=== PATIENT | female | born 1955 | race Caucasian/White ===

== ENCOUNTER → 2018-05-25 11:45 | Outpatient (CLI) | payer MEDICARE, SELFPAY ==
[2018-05-25 12:06] LABS: Basophils % 0.7 % (0.1-2.0); Eosinophils # 0.2 K/mm3 (0.0-0.4); Eosinophils % 5.6 % (0.1-12.0); Hematocrit 37.4 % (37.0-47.0); Hemoglobin 12.1 g/dL (12.2-16.2); Lymphocytes # 1.6 K/mm3 (0.7-4.5); Lymphocytes % 41.7 K/mm3 (10-50); Mean Corpuscular HGB Conc 32.3 g/dL (31.8-35.4); Mean Corpuscular Volume 86.5 fl (81-99); Mean Platelet Volume 7.5 fl (7.4-10.4); Monocytes # 0.2 K/mm3 (0.1-1.0); Monocytes % 5.5 % (1.7-9.3); Neutrophils # 1.7 K/mm3 (1.8-7.8); Neutrophils % 46.5 % (37.0-80.0); Platelet Count 210 K/mm3 (142-424); Red Blood Count 4.32 M/mm3 (4.20-5.40); Red Cell Distribution Width 13.3 % (11.5-17.5); White Blood Count 3.7 K/mm3 (4.8-10.8)
[2018-05-25 13:00] LABS: Alanine Aminotransferase 29 U/L (12-78); Albumin Level 3.7 gm/dL (3.4-5.0); Alkaline Phosphatase 100 U/L (46-116); Aspartate Amino Transferase 16 U/L (15-37); Bilirubin,Direct 0.1 mg/dL (0.0-0.2); Bilirubin,Indirect 0.3 mg/dL (0.0-0.9); Bilirubin,Total 0.4 mg/dL (0.2-1.0); Chol/HDL Ratio 3.9 (1-3.5); Cholesterol 235 mg/dL (140-200); HDL Cholesterol 61 mg/dL (29-89); LDL Cholesterol 157 mg/dL (0-130); T4 (Thyroxine) 10.3 ug/dl (4.7-13.3); Thyroid Stimulating Hormone 6.37 uIU/ml (0.358-3.740); Total Protein,Serum 6.6 gm/dL (6.4-8.2); Triglycerides 87 mg/dL (30-200); VLDL Cholesterol 17 mg/dL (0-40)
[2018-05-27 11:26] LABS: Vitamin D 25 Hydroxy 32.3 ng/mL (30.0-100.0)
== END ==
PROVIDERS: PCP Family Medicine; Visit Provider Family Medicine
DX: E03.9 Hypothyroidism, unspecified (principal); R53.83 Other fatigue
CPT/HCPCS: 36415; 80061; 80076; 82652; 84436; 84443; 85025

== ENCOUNTER → 2018-06-30 13:41 | Outpatient (CLI) | payer MEDICARE, SELFPAY ==
[2018-06-30 16:07] LABS: Free T4 (Free Thyroxine) 1.26 ng/dl (0.76-1.46)
[2018-07-03 09:26] LABS: Triiodothyronine (T3) Free 2.7 pg/mL (2.0-4.4)
== END ==
PROVIDERS: Visit Provider Otolaryngology
DX: R49.0 Dysphonia (principal); E03.9 Hypothyroidism, unspecified
CPT/HCPCS: 36415; 84439; 84443; 84481

== ENCOUNTER → 2018-07-03 09:05 | Outpatient (CLI) | payer MEDICARE, SELFPAY ==
--- NOTE | 2018-07-03 09:08 | FL_ITS ---
EXAM: Barium swallow/esophagram. INDICATION: ITS.REASON: Hypothyroidism ORDERING PHYSICIAN: Rc Bennett MD PATIENT AGE: 62 years COMPARISON: None TECHNIQUE: In the upright position the patient was observed to swallow barium in both the AP and lateral view. The cervical esophagus was examined under fluoroscopy with images obtained. The patient was then placed prone in the right anterior oblique position and was observed to swallow barium with Valsalva technique . FLUOROSCOPY TIME: 45 seconds FINDINGS: There was no evidence of aspiration. There was normal peristalsis. No filling defects or mucosal abnormalities. No masses or strictures. The esophagus is midline. No hiatal hernia. Carotid artery calcifications are evident IMPRESSION: Negative barium swallow.
== END ==
PROVIDERS: PCP Family Medicine; Visit Provider Otolaryngology
DX: E03.9 Hypothyroidism, unspecified (principal); R49.0 Dysphonia
CPT/HCPCS: 74220

== ENCOUNTER → 2018-08-05 13:01 | Outpatient (CLI) | payer MEDICARE, SELFPAY ==
--- NOTE | 2018-08-05 13:11 | XR_ITS ---
XR DEXA axial skeleton HISTORY: ITS.REASON: POST MENOPAUSAL ORDERING PHYSICIAN: aHrley Maya MD PATIENT AGE: 62 years COMPARISON: None FINDINGS: The BMD measured at the left femoral neck is 0.889 g/cm squared with a T score of -1.1. This is considered Osteopenic according to the World Health Organization criteria. Fracture risk is Moderate. Treatment is advised. L1 L4 density has T score of 0.5. IMPRESSION: Osteopenia with moderate fracture risk. Recommend follow-up exam in 2020
== END ==
PROVIDERS: PCP Family Medicine; Visit Provider Family Medicine
DX: Z78.0 Asymptomatic menopausal state (principal)
CPT/HCPCS: 77080

== ENCOUNTER → 2019-03-09 12:16 | Outpatient (CLI) | payer MEDICARE, SELFPAY ==
[2019-03-09 13:07] LABS: Basophils % 0.9 % (0.1-2.0); Eosinophils # 0.2 K/mm3 (0.0-0.4); Eosinophils % 6.9 % (0.1-12.0); Hematocrit 33.7 % (37.0-47.0); Hemoglobin 10.8 g/dL (12.2-16.2); Lymphocytes # 1.3 K/mm3 (0.7-4.5); Lymphocytes % 36.8 % (10-50); Mean Corpuscular HGB Conc 32.1 g/dL (31.8-35.4); Mean Corpuscular Hemoglobin 25.4 pg (27.0-31.2); Mean Corpuscular Volume 79.1 fl (81-99); Mean Platelet Volume 7.2 fl (7.4-10.4); Monocytes # 0.2 K/mm3 (0.1-1.0); Neutrophils # 1.7 K/mm3 (1.8-7.8); Neutrophils % 49.4 % (37.0-80.0); Platelet Count 241 K/mm3 (142-424); Red Blood Count 4.25 M/mm3 (4.20-5.40); Red Cell Distribution Width 14.3 % (11.5-17.5); White Blood Count 3.5 K/mm3 (4.8-10.8)
[2019-03-09 14:08] LABS: Anion Gap 14.7 mEq/L (5-15); Blood Urea Nitrogen 16 mg/dL (7-18); Calcium 9.9 mg/dL (8.5-10.1); Carbon Dioxide 26 mmol/L (21.0-32.0); Chloride 107 mmol/L (98-107); Creatinine,Serum 0.77 mg/dL (0.55-1.02); Estimated Glomerular Filt Rate 76 ml/min (>60); GFR (African American) 92 ML/MIN (>60); Glucose 99 mg/dL (74-106); Potassium 3.7 mmoL/L (3.5-5.1); Sodium 144 mmol/L (136-145)
== END ==
PROVIDERS: Visit Provider Otolaryngology
DX: Z01.818 Encounter for other preprocedural examination (principal); K13.0 Diseases of lips
CPT/HCPCS: 36415; 80048; 85025; 93005

== ENCOUNTER → 2020-02-08 08:47 | Outpatient (CLI) | payer MEDICARE, SELFPAY ==
--- NOTE | 2020-02-08 08:57 | XR_ITS ---
PROCEDURE: XR CHEST 2V CLINICAL HISTORY: choking, difficulty swallowing COMPARISON: CXR CHEST(2 VIEWS-NOT PORTABLE) from 12/10/2013 FINDINGS: The cardiomediastinal silhouette and pulmonary vascularity are within normal limits. The lungs are clear without infiltrates, suspicious nodules, or pleural effusions. No acute bony abnormalities. There are moderate multilevel degenerate changes of the thoracic spine with mild kyphotic curvature. IMPRESSION: No acute findings. Dictated by: Dr. Paulino Estrella MD 02/08/2020 11:[address] Paulino Estrella MD in [place] 02/08/2020 11:21
--- NOTE | 2020-02-08 08:57 | FL_ITS ---
PROCEDURE: FL BARIUM SWALLOW CLINICAL INDICATION: difficulty swallowing COMPARISON: No exams were available for comparison TECHNIQUE: In the upright position the patient was observed to swallow barium in both the AP and lateral view. The cervical esophagus was examined under fluoroscopy with images obtained. The patient was then placed prone in the right anterior oblique position and was observed to swallow barium with Valsalva technique . FLUOROSCOPY TIME: 1 minutes 4 seconds FINDINGS: There was no evidence of aspiration. There was normal peristalsis. No filling defects or mucosal abnormalities. No masses or strictures. No evidence of hiatal hernia. Esophagus is midline without evidence of deviation IMPRESSION: Negative barium swallow. Dictated by: Salvador Benito MD 02/08/2020 14:25 Electronically signed by Salvador Benito MD in [place] 02/08/2020 14:25
[2020-02-08 10:04] LABS: MANUAL DIFFERENTIAL MANUAL DIFFERENTIAL (MANUAL DIFF)
[2020-02-08 10:46] LABS: Basophils # 0.1 K/mm3 (0-0.2); Basophils % 1.3 % (0.1-2.0); Eosinophils # 0.4 K/mm3 (0.0-0.4); Eosinophils % 7.9 % (0.1-12.0); Hematocrit 39.4 % (37.0-47.0); Hemoglobin 13.9 g/dL (12.2-16.2); Lymphocytes # 1.8 K/mm3 (0.7-4.5); Lymphocytes % 36.4 % (10-50); Mean Corpuscular HGB Conc 35.2 g/dL (31.8-35.4); Mean Corpuscular Hemoglobin 30.4 pg (27.0-31.2); Mean Corpuscular Volume 86.2 fl (81-99); Mean Platelet Volume 7.3 fl (7.4-10.4); Monocytes # 0.3 K/mm3 (0.1-1.0); Monocytes % 5.8 % (1.7-9.3); Neutrophils # 2.4 K/mm3 (1.8-7.8); Neutrophils % 48.5 % (37.0-80.0); Platelet Count 212 K/mm3 (142-424); Red Blood Count 4.57 M/mm3 (4.20-5.40); Red Cell Distribution Width 13.4 % (11.5-17.5)
[2020-02-08 11:22] LABS: Eosinophils % 8 % (0-3); Lymphocytes % 39 % (10-50); Monocytes % 4 % (2-9); Neutrophils % 49 % (42-76); Platelet Estimate Normal; RBC Morphology Normal; Total Cells Counted 100
[2020-02-08 11:23] LABS: Erythrocyte Sedimentation Rate 15 mm/hr (0-30)
[2020-02-08 11:29] LABS: Alanine Aminotransferase 13 U/L (12-78); Albumin Level 4.5 g/dl (3.5-5.0); Albumin/Globulin Ratio 1.7 (1.1-1.8); Alkaline Phosphatase 113 U/L (38-126); Anion Gap 16.1 mEq/L (5-15); Aspartate Amino Transferase 26 U/L (14-36); Bilirubin,Total 0.5 mg/dl (0.2-1.3); Blood Urea Nitrogen 20 mg/dl (7-17); Calcium 9.8 mg/dl (8.4-10.2); Carbon Dioxide 24 mmol/L (22.0-30.0); Chloride 103 mmol/L (98-107); Estimated Glomerular Filt Rate 63 ml/min (>60); GFR (African American) 77 ML/MIN (>60); Globulin 2.7 g/dL (1.3-3.2); Glucose 109 mg/dl (74-100); Potassium 4.1 mmoL/L (3.5-5.1); Sodium 139 mmol/L (136-145); Total Protein,Serum 7.2 g/dl (6.3-8.2)
== END ==
PROVIDERS: PCP Family Medicine; Visit Provider Otolaryngology
DX: R13.10 Dysphagia, unspecified (principal)
CPT/HCPCS: 36415; 71046; 74220; 80053; 85007; 85014; 85018; 85048; 85049; 85651

== ENCOUNTER → 2020-02-08 10:00 | Outpatient (CLI) | payer MEDICARE, SELFPAY | PROVIDERS: Visit Provider Otolaryngology | DX: R13.10 Dysphagia, unspecified (principal); Z79.899 Other long term (current) drug therapy | CPT/HCPCS: 36415; 71046; 74220; 80053; 85007; 85014; 85018; 85048; 85049; 85651 ==

== ENCOUNTER → 2020-11-08 10:33 | Outpatient (CLI) | payer MEDICARE, SELFPAY ==
--- NOTE | 2020-11-08 10:35 | XR_ITS ---
PROCEDURE: XR DEXA AXIAL SKELETON CLINICAL HISTORY: OSTEOPENIA COMPARISON: CR DEXAAX XR DEXA axial skeleton from 08/05/2018 FINDINGS: The right hip BMD is 0.823 with a T-score of -0.2. The left hip BMD is 0.926 with a T-score of -0.1. The lumbar spine BMD is 1.093 with a T-score of 0.4. Previously the lowest density was at the left femoral neck with a T-score of -1.1 IMPRESSION: This patient is considered normal according to the World Health Organization criteria. Fracture risk is low. Based on these results a follow-up exam is recommended in 2 year. Dictated by: Salvador Benito MD 11/09/2020 07:57 Salvador Benito MD in [place] 11/09/2020 07:57
== END ==
PROVIDERS: PCP Family Medicine; Visit Provider Family Medicine
DX: M85.89 Other specified disorders of bone density and structure, multiple sites (principal)
CPT/HCPCS: 77080

== ENCOUNTER → 2021-02-23 08:56 | Outpatient (CLI) | payer MEDICARE, SELFPAY ==
--- NOTE | 2021-02-23 08:56 | FL_ITS ---
PROCEDURE: FL BARIUM SWALLOW CLINICAL INDICATION: dysphagia COMPARISON: No exams were available for comparison TECHNIQUE: In the upright position the patient was observed to swallow barium in both the AP and lateral view. The cervical esophagus was examined under fluoroscopy with images obtained. The patient was then placed prone in the right anterior oblique position and was observed to swallow barium with Valsalva technique . FLUOROSCOPY TIME: 51 seconds FINDINGS: There was no evidence of aspiration. There was normal peristalsis. No filling defects or mucosal abnormalities. No masses or strictures. IMPRESSION: Negative barium swallow. Dictated by: Salvador Benito MD 02/23/2021 10:11 Salvador Benito MD in [facility] 02/23/2021 10:11
== END ==
PROVIDERS: PCP Family Medicine; Visit Provider Otolaryngology
DX: R13.10 Dysphagia, unspecified (principal)
CPT/HCPCS: 74220

== ENCOUNTER → 2021-11-30 11:21 | Outpatient (CLI) | payer MEDICARE, SELFPAY ==
[2021-11-30 12:28] LABS: Alanine Aminotransferase 20 U/L (12-78); Albumin/Globulin Ratio 1.7 (1.1-1.8); Alkaline Phosphatase 86 U/L (38-126); Anion Gap 8.6 mEq/L (5-15); Aspartate Amino Transferase 25 U/L (14-36); Bilirubin,Total 0.5 mg/dl (0.2-1.3); Blood Urea Nitrogen 12 mg/dl (7-17); Calcium 8.8 mg/dl (8.4-10.2); Carbon Dioxide 26 mmol/L (22.0-30.0); Chloride 108 mmol/L (98-107); Chol/HDL Ratio 3.8 (1-3.5); Cholesterol 212 mg/dl (140-200); Estimated Glomerular Filt Rate 84 ml/min (>60); GFR (African American) 102 ML/MIN (>60); Globulin 2.3 g/dL (1.3-3.2); Glucose 96 mg/dl (74-100); HDL Cholesterol 56 mg/dl (40-60); Potassium 3.6 mmoL/L (3.5-5.1); Sodium 139 mmol/L (136-145); Total Protein,Serum 6.3 g/dl (6.3-8.2); Triglycerides 113 mg/dl (30-150); VLDL Cholesterol 23 mg/dL (0-40)
[2021-11-30 12:39] LABS: Direct LDL Cholesterol 118.07 mg/dL (100-129)
[2021-11-30 12:59] LABS: Thyroid Stimulating Hormone 0.86 uIU/mL (0.465-4.68)
== END ==
PROVIDERS: PCP Family Medicine; Visit Provider Family Medicine
DX: E03.9 Hypothyroidism, unspecified (principal); E78.5 Hyperlipidemia, unspecified
CPT/HCPCS: 36415; 80053; 80061; 84443

== ENCOUNTER → 2022-06-03 10:36 | Outpatient (CLI) | payer MEDICARE, SELFPAY ==
[2022-06-03 13:04] LABS: Alanine Aminotransferase 16 U/L (12-78); Albumin/Globulin Ratio 1.7 (1.1-1.8); Alkaline Phosphatase 97 U/L (38-126); Anion Gap 14.8 mEq/L (5-15); Aspartate Amino Transferase 28 U/L (14-36); Bilirubin,Total 0.5 mg/dl (0.2-1.3); Blood Urea Nitrogen 12 mg/dl (7-17); Calcium 8.8 mg/dl (8.4-10.2); Carbon Dioxide 24 mmol/L (22.0-30.0); Chloride 103 mmol/L (98-107); Chol/HDL Ratio 3.6 (1-3.5); Cholesterol 215 mg/dl (140-200); Estimated Glomerular Filt Rate 72 ml/min (>60); GFR (African American) 87 ML/MIN (>60); Globulin 2.4 g/dL (1.3-3.2); Glucose 90 mg/dl (74-100); HDL Cholesterol 59 mg/dl (40-60); Potassium 3.8 mmoL/L (3.5-5.1); Sodium 138 mmol/L (136-145); Total Protein,Serum 6.4 g/dl (6.3-8.2); Triglycerides 89 mg/dl (30-150); VLDL Cholesterol 18 mg/dL (0-40)
[2022-06-03 13:15] LABS: Direct LDL Cholesterol 126.97 mg/dL (100-129)
[2022-06-03 13:33] LABS: Thyroid Stimulating Hormone 5.36 uIU/mL (0.465-4.68)
== END ==
PROVIDERS: PCP Family Medicine; Visit Provider Family Medicine
DX: E03.9 Hypothyroidism, unspecified (principal); E78.5 Hyperlipidemia, unspecified
CPT/HCPCS: 36415; 80053; 80061; 84443

== ENCOUNTER 2023-11-17 13:41 | Outpatient (CLI) | payer MEDICARE, SELFPAY ==
--- NOTE | 2023-11-17 | CA_ITS ---
FINAL REPORT TECHNIQUE: Color Doppler, duplex Doppler and salomon scale sonography of the bilateral neck arterial vasculature was performed. Velocities were measured in the carotid arteries. Stenosis evaluation based on the validated velocity criteria. CLINICAL HISTORY: HLD, Right side plaque on previous carotid per pt from outside facility FINDINGS: The peak systolic velocity of the right common carotid artery is 98 cm/s. The peak systolic velocity of the right internal carotid artery is 75 cm/s and end diastolic velocity 25 cm/s. A small amount of plaque is present. The right external carotid artery is patent. The right vertebral artery is patent with antegrade flow. The peak systolic velocity of the left common carotid artery is 86 cm/s. The peak systolic velocity of the left internal carotid artery is 81 cm/s and end diastolic velocity 21 cm/s. A small amount of plaque is present. The left external carotid artery is patent.The left vertebral artery is patent with antegrade flow. IMPRESSION: Less than 50% bilateral carotid stenoses. Bilateral patent vertebral arteries with antegrade flow. If indicated, CTA or MRA could further evaluate. Reviewed, Interpreted and Dictated by Ana Luisa Acosta MD Transcribed by Perla Carson Authenticated and [facility]
== END 2023-11-17 23:59 ==
LOC: RT 13:42
PROVIDERS: PCP Family Medicine; Visit Provider Nurse Practitioner Family
DX: I65.21 Occlusion and stenosis of right carotid artery (principal)
CPT/HCPCS: 93880

== ENCOUNTER 2024-09-21 14:32 | Outpatient (CLI) | payer MEDICARE, SELFPAY ==
--- NOTE | 2024-09-21 14:39 | XR_ITS ---
FINAL REPORT CLINICAL HISTORY: PAIN RT KNEE FINDINGS: Right knee Three views were obtained. There is no fracture or dislocation. There is mild to moderate medial compartment joint space narrowing with osteophytes at the medial joint margin. There are small osteophytes along the undersurface of the patella. Small joint effusion is identified. IMPRESSION: Mild to moderate medial and patellofemoral osteoarthritis. Reviewed, Interpreted and Dictated by Melhcor Hawkins MD Transcribed by Teetee Jaimes Authenticated and . [facility]
== END 2024-09-21 23:59 | disposition home or self-care (01) ==
LOC: RAD 14:34
PROVIDERS: PCP Family Medicine; Visit Provider Family Medicine
DX: M25.561 Pain in right knee (principal)
CPT/HCPCS: 73562

== ENCOUNTER 2024-11-22 08:02 | Outpatient (CLI) | payer MEDICARE, SELFPAY ==
--- NOTE | 2024-11-22 | CA_ITS ---
APPROVED REPORT EXAM: Comprehensive 2D, Doppler, and color-flow Echocardiogram Oral Surgery Technician: Amber Arias CRT Ht: 5 ft 3 in Wt: 176lbs BSA: 1.83 BP: 133/50 mmHg Indications: Shortness of Breath, Fatigue 2D Dimensions Left Atrium 4.06 cm LVEF (Hicks's) 52.00 % RVID Base (AP4) 3.11 cm (M/F) 2.5-4.1 LV Volume 107.00 mL LVOT 1.86 cm (M/F) 1.5-2.5 LA Volume 45.40 mL LA Volume Index 24.80 mL/m2 (M/F) 16-34 EF AP4 56.60 % EF AP2 52.7 % EF BP 52.0 % GL Strain -18.1 % M-Mode Dimensions RVDd 2.78 cm (0.9-2.6) LVDd 4.25 cm (3.5-5.7) Ao Diam 3.18 cm (2.0-3.7) LVDs 2.81 cm (3.5-5.7) IVSd 1.77 cm (0.6-1.1) PWd 0.77 cm (0.6-1.1) EF (Teich) 63.10% FS 33.90% EDV (Teich) 80.80 mL TAPSE 2.02 (<1.7) ESV (Teich) 29.80 mL LV Diastology E Decel Time 203 (160-240 msec) E/A Ratio 0.95 MED E' 6.2 (>= 7 cm/sec) MED A' 9.10 cm/s E'/MED E' Ratio 14.85 (<= 14) LAT E' 8.1 (>= 10 cm/sec) LAT A' 12.50 cm/s E/LAT E' Ratio 11.37 (<= 14) Aortic Valve LVOT Max 127.0 (70-110 cm/s) RENEE Index 1.16 cm2/m2 LVOT VTI 32.28 cm AoV Peak Jeronimo. 171.0 (50-130 cm/s) AO Peak GR. 11.70 mmHg AO Mean GR. 6.70 (<5 mmHg) AO VTI 41.3 (18-25 cm) RENEE (VTI) 2.13 (2.5-4.5 cm2) Mitral Valve MV E Max Jeronimo. 92.0 (40-130 cm/s) MV A Velocity 97.0 (40-130 cm/s) E/A Ratio 0.95 MV Decel. Time 203 (160-240 ms) Tricuspid Valve TR P. Velocity 266.00 cm/s RAP Estimate 10.00 mmHg RVSP 38.20 mmHg Left Ventricle The left ventricle is normal size. The left ventricular systolic function is normal. The left ventricular ejection fraction is within the normal range. There is increased LV wall thickness. There is normal LV segmental wall motion. The left ventricular diastolic function is normal. LVEF is 55%. Right Ventricle The right ventricle is normal size. The right ventricular systolic function is normal. Atria Left atrium is mildly dilated. Right atrium is mildly dilated. Color Doppler demonstrates presence of left to right interatrial shunt. Aortic Valve Aortic valve is mildly thickened. There is no aortic valvular stenosis. Trace aortic regurgitation. Mitral Valve The mitral valve leaflets are mildly thickened. Mild mitral regurgitation. No evidence of mitral valve stenosis. Tricuspid Valve Tricuspid valve is grossly normal in structure and function. Mild tricuspid regurgitation. RVSP 20-25 mmHg. Pulmonic Valve The pulmonary valve is normal in structure. Trace pulmonic regurgitation. Great Vessels The aortic root is normal in size. IVC is normal in size and collapses >50% with inspiration. Pericardium There is no pericardial effusion. Other Information Study Quality: Fair Conclusion Normal biventricular systolic function. Mild biatrial dilation. Mild MR, mild TR. Color Doppler demonstrates presence of left to right interatrial shunt. Electronically signed by : Katrina Altman MD 12/01/2024 12:20:52
[2024-11-22 09:16] LABS: Basophils % 0.7 % (0.1-2.0); Eosinophils # 0.3 K/mm3 (0.0-0.4); Eosinophils % 4.6 % (0.1-12.0); Hemoglobin 11.8 g/dL (12.2-16.2); Lymphocytes % 35.8 % (10-50); Mean Corpuscular HGB Conc 33.7 g/dL (31.8-35.4); Mean Corpuscular Hemoglobin 29.3 pg (27.0-31.2); Mean Corpuscular Volume 86.8 fl (81-99); Mean Platelet Volume 9.7 fl (7.4-10.4); Monocytes # 0.5 K/mm3 (0.1-1.0); Monocytes % 8.8 % (1.7-9.3); Neutrophils # 2.7 K/mm3 (1.8-7.8); Neutrophils % 49.7 % (37.0-80.0); Platelet Count 194 K/mm3 (142-424); Red Blood Count 4.03 M/mm3 (4.20-5.40); Red Cell Distribution Width 12.1 % (11.5-17.5); White Blood Count 5.5 K/mm3 (4.8-10.8)
[2024-11-22 09:45] LABS: Chloride 106 mmol/L (98-107); Potassium 3.3 mmoL/L (3.5-5.1); Sodium 140 mmol/L (136-145)
[2024-11-22 09:47] LABS: Alanine Aminotransferase 17 U/L (12-78); Bilirubin,Unconjugated 0.4 mg/dL (0.0-1.1); Blood Urea Nitrogen 17 mg/dl (7-17); Estimated Glomerular Filt Rate 71 ml/min (>60); GFR (African American) 86 ML/MIN (>60)
[2024-11-22 09:48] LABS: Alkaline Phosphatase 88 U/L (38-126); Anion Gap 13.3 mEq/L (5-15); Aspartate Amino Transferase 25 U/L (14-36); Bilirubin,Direct 0.1 mg/dl (0.0-0.4); Bilirubin,Indirect 0.4 mg/dL (0.0-0.9); Bilirubin,Total 0.5 mg/dl (0.2-1.3); Calcium 8.6 mg/dl (8.4-10.2); Carbon Dioxide 24 mmol/L (22.0-30.0); Chol/HDL Ratio 2.8 (1-3.5); Cholesterol 165 mg/dl (140-200); Glucose 84 mg/dl (74-100); HDL Cholesterol 60 mg/dl (40-60); Magnesium 1.9 mg/dl (1.6-2.3); Triglycerides 98 mg/dl (30-150); VLDL Cholesterol 20 mg/dL (0-40)
[2024-11-22 09:59] LABS: Direct LDL Cholesterol 81.79 mg/dL (100-129)
[2024-11-22 10:05] LABS: Free T4 (Free Thyroxine) 1.34 ng/dl (0.78-2.19)
[2024-11-22 10:18] LABS: Thyroid Stimulating Hormone 1.39 uIU/mL (0.465-4.68)
== END 2024-11-22 23:59 | disposition home or self-care (01) ==
LOC: RT 08:03
PROVIDERS: PCP Family Medicine; Visit Provider Nurse Practitioner
DX: I34.0 Nonrheumatic mitral (valve) insufficiency (principal); I07.1 Rheumatic tricuspid insufficiency; I65.21 Occlusion and stenosis of right carotid artery
CPT/HCPCS: 36415; 80048; 80061; 80076; 83735; 84439; 84443; 85025; 93306

== ENCOUNTER 2025-02-22 09:17 | Outpatient (CLI) | payer MEDICARE, SELFPAY ==
--- OUTSIDE RECORDS SUMMARY | 2025-02-01 10:30 | XMS_ITS ---
Author Organization [facility] Address 1210 [facility] [address] [id number] Care Team Providers Care Complex Case Manager Name Role Phone Bettie Maya Primary Care Provider Allergies No Known Allergies Results Component Value Reference Range Notes P-Basic Metabolic Panel (BMP ) Reviewed date:02/03/2025 08:44:54 AM Interpretation:GFR 56 Performing Lab: Notes/Report: Test performed by [facility] [employer] [address] [place], [place] [address]: [employer] [place] , [address], [place] [address] Nate Munoz MD, Bender Machine Operator CLIA: [id number] Sodium 140 135-145 mmol/L Potassium 3.8 3.5-5.3 mmol/L Chloride 105 97-108 mmol/L CO2 22 22-32 mmol/L Glucose 117 65-99 mg/dL BUN 17 8-23 mg/dL Creatinine 1.08 0.50-1.00 mg/dL Calcium 9.6 8.6-10.4 mg/dL eGFR by Creatinine 56 >59 mL/min/1.73m2 P-CPK Reviewed date:02/03/2025 08:44:54 AM Interpretation:Normal Performing Lab: Notes/Report: Test performed by [employer] [address] [place], [place] [address] [place] , [address], [place] [address] Nate Munoz MD, Bender Machine Operator CLIA: [id number] Creatine Kinase 76 20-180 U/L J-C-Hkkwsiqm Protein (CRP) Reviewed date:02/03/2025 08:44:54 AM Interpretation:Normal Performing Lab: Notes/Report: Test performed by [facility] , [facility] [place] [address] Nate Munoz MD, Bender Machine Operator CLIA: [id number] C-Reactive Protein (CRP) 0.12 <0.50 mg/dL P-Sed Rate (ESR) Reviewed date:02/03/2025 08:44:54 AM Interpretation:Normal Performing Lab: Notes/Report: [facility] , [facility], [place] [address] Nate Munoz MD, Bender Machine Operator CLIA: [id number] Erythrocyte Sedimentation Rate (ESR), Automated 16 <31 mm/hr P-Magnesium Reviewed date:02/03/2025 08:44:54 AM Interpretation:2.0 Performing Lab: Notes/Report: [facility] , [facility] [place] [address] Nate Munoz MD, Bender Machine Operator CLIA: [id number] Magnesium 2.0 1.6-2.4 mg/dL P-TSH Reviewed date:02/03/2025 08:44:54 AM Interpretation:6.39 Performing Lab: Notes/Report: [facility] , [place] [address] Nate Munoz MD, Bender Machine Operator CLIA: [id number] TSH 6.39 0.43-5.25 mU/L REASON FOR VISIT leg hurting Medications Medication SIG (Take, Route, Frequency, Duration) Notes Start Date End Date Status diazePAM 5 MG 1 tab(s) orally 3 times a day as needed; Duration: 30 days 01/29/2025 Active Levothyroxine Sodium 125 MCG 1 tablet in the morning on an empty stomach Orally Once a day 07/27/2023 Active HYDROcodone-Acetaminophen 7.5-325 MG 1 tab(s) orally 3 times a day as needed; Duration: 30 days 01/29/2025 Active Cefuroxime Axetil 500 MG 1 tab(s) orally every 12 hours; Duration: 10 day(s) 08/27/2022 Not-Taking Mupirocin 2 % 1 rajesh applied topically 3 times a day 08/19/2022 Not-Taking Potassium Chloride ER 10 MEQ 1 tablet with food Orally Once a day; Duration: 90 days Active hydroCHLOROthiazide 25 mg TAKE ONE TABLE T BY MOUTH ONCE DAILY NEEDED FOR SWELLING; Duration: 90 Active Atorvastatin Calcium 40 MG 1 tab(s) oral ly once a day; Duration: 30 day(s) Active Dicyclomine HCl 10 MG 1 cap(s) orally Th ree times a day; Duration: 30 day(s) 11/25/2022 Active Trulance 3 MG 1 tablet Orally Once a day 03/07/2023 Active PROzac 40 MG 1 cap(s) orally once a day; Duration: 30 day(s) 11/25/2022 Active Probiotic - as directed Orally Active Estradiol 0.1 MG/GM 1 g intravaginally 3 times a week 11/30/2018 Active Nabumetone 500 MG 1 tab(s) orally 2 times a day; Duration: 30 days Active Vital Signs Weight 178.2 lbs 02/01/2025 Blood pressure systolic 120 mm Hg 02/02/20 25 Blood pressure diastolic 62 mm Hg 025 Heart Rate 81 /min 02/01/2025 Height 63.50 in 02/01/2025 BMI 31.07 kg/m2 02/01/2025 Encounters Encounter Location Date Provider Diagnosis [facility] [address] [phone] 02/01/2025 Bettie Maya Myalgia M79.10 ; Acquired hypothyroidism E03.9 ; Anemia D64.9 and Chronic pain syndrome G89.4 Assessments Encounter Date Diagnosis (ICD Code) Assessment Notes Treatment Notes Treatment Clinical Notes Section Notes 02/01/2025 Myalgia (ICD-10 - M79.10) 02/01/2025 Acquired hypothyroidism (ICD-10 - E03.9) 02/01/2025 Anemia (ICD-10 - D64.9) 02/01/2025 Chronic pain syndrome (ICD-10 - G89.4) Plan Of Treatment Next Appt Details Follow Up: via phone to repo rt test results, Reason: Progress Notes * SEBASTIÁN MORELOB: 956 (69 yo F)Acc No.[id number]:02/01/2025 Progress Notes Patient: REGGIE RITTERRICE Provider: Bettie Maya M.D. :1955 A ge:69 Y S ex:Female Date:02/01/2025 Address:[address] , [place], [id number] Subjective: * Chief Complaints: * 1 . Leg hurting. * HPI: L e69 year old female presents with c/o Leg pain P t sts she has been having pain in both of ehr legs, and sts this has been going on for about 3 months. Pt sts she is unable to sleep at night due to the pain. Pt sts they hurt worse below her knees in the bone.? S he describes the pain as a deep aching sensation and sometimes feels a similar pain in her arms.. She has been following with orthopedics and receiving Synvisc injections which has helped the knee pain but her current complaints of lower leg pain is noted. * ROS: D ERMATOLOGY: no R cong. n o H jassi. G ASTROENTEROLOGY: no N ausea. n o V omiting. n o D iarrhea.? U ROLOGY: no D ifficulty urinating. n o B lood in urine. * Medical History: H ypothyroidism, Allergic rhinitis, Osteoarthritis, DJD of knees, Irritable bowel syndrome, Lumbar disc herniation - permanent restrictions from Dr. 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 Kilpatrick for annual PAP and mammogram, Anxiety disorder, Anemia - Dr. Mccall. * Surgical History: p artial thyroidectomy - benign colloid cyst December 24, 2007, Arthroscopic repair of medial and lateral meniscus of left knee March 22, 2010, Esophagus stretched and polyp removed from throat/Dr Bennett 03/11/13, bladder exploratory 11/2013, skin cancer removed off of face 03-22-14, basal cell skin cancer removed from left shoulder 05/2014, CATRINA for DDD/DJD - Dr. Ho 12/2014, Excision of anal cancer 01/17/16, C-scope/ Case 10/2022, EGD with dilitation/ Case 10/2022. * Hospitalization/Major Diagno stic Procedure: H MH post thyroidectomy, Dr. Bennett 12/24/2007, [facility] fell and hurt left knee 03/05/10, [facility] 04/06/17, [facility] 08/2019. * Family History: F ather: , colon carcinoma. M other: , lung cancer. C hildren: no children. Sister - diabetes, heart disease. * Social History: C URRENT TOBACCO USE S moking Status: Patient does NOT smoke. M arital Status: . Past smoking status: no, Smoking status: Does not smoke. * Medications: T aking Levothyroxine Sodium 125 MCG Tablet 1 tablet in the morning on an empty stomach Orally Once a day , Taking PROzac 40 MG Capsule 1 cap(s) orally once a day , Taking Probiotic - Tablet Delayed Release as directed Orally , Taking Estradiol 0.1 MG/GM Cream 1 g intravaginally 3 times a week , Taking Nabumetone 500 MG Tablet 1 tab(s) orally 2 times a day , Taking Dicyclomine HCl 10 MG Capsule 1 cap(s) orally Three times a day , Taking Trulance 3 MG Tablet 1 tablet Orally Once a day , Taking Potassium Chloride ER 10 MEQ Tablet Extended Release 1 tablet with food Orally Once a day , Taking hydroCHLOROthiazide 25 mg Tablet TAKE ONE TABLET BY MOUTH ONCE DAILY NEEDED FOR SWELLING , Taking Atorvastatin Calcium 40 MG Tablet 1 tab(s) orally once a day , Taking diazePAM 5 MG Tablet 1 tab(s) orally 3 times a day as needed , Taking HYDROcodone-Acetaminophen 7.5-325 MG Tablet 1 tab(s) orally 3 times a day as needed , Not-Taking Cefuroxime Axetil 500 MG Tablet 1 tab(s) orally every 12 hours , Not-Taking Mupirocin 2 % Ointment 1 rajesh applied topically 3 times a day , Medication List reviewed and reconciled with the patient * Allergies: N .K.D.A. Objective: * Vitals: W t: 178.2, Temp: 98.6, BP: 120/62, HR: 81, Nurse: danielito, Ht: 63.50, BMI:31.07. * Examination: K nee / Gallagher: E xamination of the leg shows no acute joint swelling redness or warmth in the knees or ankles. No peripheral edema. No calf tenderness, redness, or warmth. There is mild tenderness along the anterior gallagher bilaterally. Assessment: * Assessment: 1. M yalgia - M79.10 (Primary) 2 . A cquired hypothyroidism - E03.9 ? 3 . A nemia - D64.9 4 . C hronic pain syndrome - G89.4 ? Plan: * Treatment: Value Reference Range C reatine Kinase 76 20-180 - U/L * Bettie Maya 02/03/2025 08:42:49 AM EDT > See phone encounter Bettie Maya 02/03/2025 08:44:32 AM EDT > See phone encounter ?LAB: S-R-Zrepuowq Protein (CRP) (Collection Date & Time - 02/01/2025 02:04 PM)?Normal* Value Reference Range C -Reactive Protein (CRP) 0.12 <0.50 - mg/dL * Bettie Maya 02/03/2025 08:42:49 AM EDT > See phone encounter Bettie Maya 02/03/2025 08:44:32 AM EDT > See phone encounter ?LAB: P-Sed Rate (ESR) (Collection Date & Time - 02/01/2025 02:04 PM)?Normal * Value Reference Range E rythrocyte Sedimentation Rate (ESR), Automated 16 <31 - mm/hr * Bettie Maya 02/03/2025 08:42:49 AM EDT > See phone encounter Bettie Maya 02/03/2025 08:44:32 AM EDT > See phone encounter ?LAB: P-Magnesium (Collection Date & Time - 02/01/2025 02:04 PM)?2.0* Value Reference Range M agnesium 2.0 1.6-2.4 - mg/dL * Bettie Maya 02/03/2025 08:42:49 AM EDT > See phone encounter Bettie Maya 02/03/2025 08:44:32 AM EDT > See phone encounter 2.?Acquired hypothyroidism?LAB: P-Basic Metabolic Panel (BMP) (Collection Date & Time - 02/01/2025 02:04 PM)?GFR 56* Value Reference Range B UN 17 8-23 - mg/dL * C alcium 9.6 8.6-10.4 - mg/dL * C hloride 105 97-108 - mmol/L * C O2 22 22-32 - mmol/L * C reatinine 1.08 H 0.50-1.00 - mg/dL * G lucose 117 H 65-99 - mg/dL * P otassium 3.8 3.5-5.3 - mmol/L * S odium 140 135-145 - mmol/L * e GFR by Creatinine 56 L >59 - mL/min/1.73m2 * Bettie Maya 02/03/2025 08:42:49 AM EDT > See phone encounter Bettie Maya 02/03/2025 08:44:32 AM EDT > See phone encounter ?LAB: P-Magnesium (Collection Date & Time - 02/01/2025 02:04 PM)?2.0* Value Reference Range M agnesium 2.0 1.6-2.4 - mg/dL * Bettie Maya 02/03/2025 08:42:49 AM EDT > See phone encounter Bettie Maya 02/03/2025 08:44:32 AM EDT > See phone encounter ?LAB: P-TSH (Collection Date & Time - 02/01/2025 02:04 PM)?6.39* Value Reference Range T SH 6.39 H 0.43-5.25 - mU/L * Bettie Maya 02/03/2025 08:42:49 AM EDT > See phone encounter Bettie Maya 02/03/2025 08:44:32 AM EDT > See phone encounter * Procedure Codes: G 2211 Complex e/m visit add on, 1036F TOBACCO NON-USER, G8783 BP SCR PRFRM RCMDD DEFIND SCR INTVL, G8752 MOST RECENT SYSTOLIC BP < 140MM HG, G8754 MOST RECENT DIASTOLIC BP < 90MM HG * Follow Up: v ia phone to report test results * Images: Billing Information: * Visit Code: 86477 Office Visit, Est Pt., Level 3. * Procedure Codes: G2211 Complex e/m visit add on. 1036F TOBACCO NON-USER. G8783 BP SCR PRFRM RCMDD DEFIND SCR INTVL. G8752 MOST RECENT SYSTOLIC BP < 140MM HG. G8754 MOST RECENT DIASTOLIC BP < 90MM HG. * Electronic signature of Bettie Maya MD on 02/22/2025 at 09:22 AM EDT Sign off status: Pending * Provider: Bettie Maya M.D. Date: 0 02/01/2025 Generated for Scott aguilera/Darryl/eTransmitting on: 0 02/22/2025 09:22 AM EDT History and Physical Notes * HPI (History of Present Illness) Category Sub-Category Detail Notes Category Not es Leg Leg pain Pt sts she has b een having pain in both of ehr legs, and sts this has been going on for about 3 months. Pt sts she is unable to sleep at night due to the pain. Pt sts they hurt worse below her knees in the bone. She describes the pain as a deep aching sensation and sometimes feels a similar pain in her arms. She has been following with orthopedics and receiving Synvisc injections which has helped the knee pain but her current complaints of lower leg pain is noted. Examination Category Sub-Category Detail Notes Category Not es Knee / Gallagher Examination of the leg shows no acute joint swelling redness or warmth in the knees or ankles. No peripheral edema. No calf tenderness, redness, or warmth. There is mild tenderness along the anterior gallagher bilaterally.
--- OUTSIDE RECORDS SUMMARY | 2025-02-02 09:05 | XMS_ITS ---
Author Organization [facility] Address [facility] [address] [phone] Care Team Providers Care Logistics Director Name Role Phone Bettie Maya Primary Care Provider [phone] REASON FOR VISIT Message Problems Problem Type SNOMED Code ICD Code Onset Dates Problem Status W/U Status Risk Notes Problem Dysphagia ([id number]) Dysphagia, unspecified type (R13.10) Active confirmed Encounters Encounter Location Date Provider Diagnosis [facility] [address] [place] [phone] 02/02/2025 Bettie Maya Dysphagia, unspecifi ed type R13.10 Assessments Encounter Date Diagnosis (ICD Code) Assessment Notes Treatment Notes Treatment Clinical Notes Section Notes 02/02/2025 Dysphagia, unspecified type (ICD-10 - R13.10) Plan Of Treatment No Information Progress Notes * SEBASTIÁN MORELOB: [birth year] (69 yo F)Acc No.[id number]:02/02/2025 Patient: SCOUT RITTER :1955 A ge:69 Y S ex:Female Address:[address] [place] [address] Subjective: * Chief Complaints: * M essage * Medical History: * Surgical History: * Hospitalization/Major Diagno stic Procedure: * Medications: Objective: * Vitals: * Physical Examination: Assessment: * Assessment: 1. D ysphagia, unspecified type - R13.10 (Primary) Plan: * Treatment: * Procedure Codes: * true * Date: Generated for Scott aguilera/Darryl/Esme on: 0 02/22/2025 09:22 AM EDT
--- OUTSIDE RECORDS SUMMARY | 2025-02-05 13:27 | XMS_ITS ---
Author Organization [facility] Address [address] [place], [place] [id number] Care Team Providers Care Truck Shop Supervisor Name Role Phone Bettie Maya Primary Care Provider REASON FOR VISIT due for screenings Encounters Encounter Location Date Provider Diagnosis [facility] [address] [place] [id number] 02/05/2025 Bettie Maya Screening for osteoporosis Z13.820 Assessments Encounter Date Diagnosis (ICD Code) Assessment Notes Treatment Notes Treatment Clinical Notes Section Notes 02/05/2025 Screening for osteoporosis (ICD-10 - Z13.820) Plan Of Treatment Pending Test Test Name Order Date Bone density 02/05/2025 Progress Notes * SEBASTIÁN MORELOB: 956 (69 yo F)Acc No.[id number]:02/05/2025 Patient: SCOUT RITTER :1955 A ge:69 Y S ex:Female Address:[address] , [place] [address] Subjective: * Chief Complaints: * D ue for screenings * Medical History: * Surgical History: * Hospitalization/Major Diagno stic Procedure: * Medications: Objective: * Vitals: * Physical Examination: Assessment: * Assessment: 1. S creening for osteoporosis - Z13.820 (Primary) Plan: * Treatment: * Procedure Codes: * true * Date: Generated for Printi ng/Faxing/eTransmitting on: 0 02/22/2025 09:21 AM EDT
--- NOTE | 2025-02-22 09:21 | XR_ITS ---
FINAL REPORT CLINICAL HISTORY: SCREENING COMPARISON: None FINDINGS: Using L1-4, the bone mineral density of the spine is 1.113 g/cm2, corresponding to T-score of 0.6, within normal limits. Using the left hip, the bone mineral density of the total hip is 0.883 g/cm2, corresponding to a T-score of -0.5, within normal limits. Using the right hip, the bone mineral density of the femoral neck is 0.760 g/cm2, corresponding to a T-score of -0.8, within normal limits. FRAX not reported because all T-scores at or above -1.0. NOTE: T-score: Standard deviation compared with peak bone mass of young adult mean. *Following the recommendations of the International Society of Bone densitometry, classification of hip BMD is based on the lower of two T-scores; total hip or femoral neck. IMPRESSION: Normal bone mineral density of the lumbar spine and hips. Reviewed, Interpreted and Dictated by Melchor Hawkins MD Transcribed by Joyce Rodriguez Authenticated and [facility]
--- OUTSIDE RECORDS SUMMARY | 2025-02-22 09:22 | XMS_ITS | Clinical Summary ---
Author Organization Healthcare Address [address] [place] [address] Care Team Providers Care Concrete Pavement Installer Name Role Phone Pcp, No Primary Care Provider Unavailabl e Allergies No known active allergies Medications No known medications Social History Tobacco Use Types Packs/Day Years Used Date Smoking Tobacco: Never Assessed Tobacco Cessation:Counseling Given: No Comments No Sex and Gender Information Value Date Recorded Sex Assigned at Not on file Legal Sex Female 6:40 PM EDT Gender Identity Not on file Sexual Orientation Not on file Last Filed Vital Signs Vital Sign Reading Time Taken Comments Blood Pressure 132/63 04/08/2022 4:01 PM EDT Pulse - - Temperature - - Respiratory Rate - - Oxygen Saturation - - Inhaled Oxygen Concentration - - Weight 85.2 kg (187 lb 13.3 oz) 04/08/2022 4:01 PM EDT Height 160 cm (5' 3 ) 06/27/2021 11:21 AM EDT Body Mass Index 33.27 06/27/2021 11:21 AM EDT Plan of Treatment Health Maintenance Due Date Last Done Comments [facility]-Bone Density Scan 1955 [facility]-Depression Screening 1955 [facility]-Hepatitis C Screening 1955 [facility]-Medicare Annual Wellness (AWV) 1955 [facility]-Infant/Child/Adol SDOH Screenings 1956 [facility]-Obesity Intervention 1962 [facility]- SDOH Screenings 1974 [facility]-Adult SDOH Screenings 1974 CT Colonography 2001 Colonoscopy 2001 FIT-DNA 2001 FIT 2001 FOBT 2001 Sigmoidoscopy 2001 [facility]-Colorectal Cancer Screening 2001 [facility]-Breast Cancer Screening 2006 [facility]-Zoster Vaccines (1 of 2) 2006 [id number] Vaccine (3 - season) 2024 05/04/2021, 04/06/2021 [facility]-Influenza Vaccine (Season Ended) 2025 05/31/2021, 06/30/2020, 06/10/2019, Additional history exists [facility]-Pneumococcal Vaccine: 50+ Years (3 of 3 - PCV20 or PCV21) 11/26/2026 11/26/2021, 06/10/2019 [facility]-DTaP,Tdap,and Td Vaccines (2 - Td or Tdap) 11/30/2028 11/30/2018 [facility]-RSV Vaccine: 60+ Years or (1 - 1-dose 75+ series) 2031 HPV Vaccines Aged Out No longer eligi ble based on patient's age to complete this topic [facility]-HIB Vaccines Aged Out No longer e ligible based on patient's age to complete this topic [facility]-Hepatitis A Vaccines Aged Out No longer eligible based on patient's age to complete this topic [facility]-IPV Vaccines Aged Out No longer e ligible based on patient's age to complete this topic [facility]-Rotavirus Vaccines Aged Out No lo nger eligible based on patient's age to complete this topic Insurance [facility] MEDICARE Care Teams Concrete Pavement Installer Relationship Specialty Start [place] [address] PCP - General 06/27/21
--- OUTSIDE RECORDS SUMMARY | 2025-02-22 09:22 | XMS_ITS | Continuity of Care Document ---
Author Organization [facility] & [place], [facility] Address [address] [place] [address] Care Team Providers Care Manager Group Home Name Role Phone NORI ESTRELLA Referring Provider Assessment No assessment recorded. Plan of Treatment Reminders Order Date Submit Date Provider Last Modified By Organization Details Last Modified Time Details Appointments None recorded. Lab None recorded. Referral None recorded. Procedures None recorded. Surgeries None recorded. Imaging XR, esophagram 2024 025 formerly [facility] [place] Number, [address], [place], [address], 08:53:00 Medication Orders None recorded. Patient TargetsNo targets recorded. Patient Instructions Encounter Date Encounter Id Patient Instructions Last Modified By Organization Details Last Modified Time 02/08/2025 [id number] Patient has no lesions or masses of the upper aerodigestive tract. her vocal cords are moving symmetrically bilaterally there are no masses of the vallecula or the piriform sinuses. Posterior pharyngeal wall is within normal limits. [email or web address] Not available 02/08/2025 15:23:45 Reason for Referral None Reported. 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 2022 Nicky Bryant null, [place] - [facility] - [facility] & [place] 3 11:58:53 Dysuria 19073232 Active 2022 Nicky Bryant null, [place] [facility] - & [place] 3 11:58:59 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 002483395 Active 2022 Nicky Bryant null, [place] - [facility] - [facility] & [place] 3 11:59:16 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 Nicky Brynat null, [place] - [facility] - [facility] & [place] 3 12:00:08 Diarrhea 31992003 Active 2022 Nicky Bryant null, [place] - [facility] - & [place] 3 12:00:13 Anemia 577860150 Active 2022 Benjamin Strickland PA-C [address], [place], [address] , [place] - [facility] - [place] & [place] 3 12:50:09 Heartburn 30695719 Active 2022 Benjamin Strickland PA-C [address] [place], [address] , [place] - [facility] - [place] & [place] 3 12:57:41 Esophageal dysphagia 07359109 Active 2022 Benjamin Strickland PA-C [address] [place], [address] , [place] - [facility] - [place] & [place] 3 12:57:48 Dysphagia 93584486 Active 2022 Benjamin Strickland PA-C [address], [place], [address] , [place] [facility] [place] 3 18:42:31 Iron deficiency anemia 35951339 Active 2022 Benjamin Strickland PA-C [address] , [place], [address] , [facility] & [place] 3 18:42:37 Stenosis of anal canal 04524544 Active 2022 Benjamin Strickland PA-C [address] [facility] [address] , [facility] & [place] 3 12:31:48 Problem Notes None recorded. Procedures Surgical History Date Name Laterality Status Provider Name and Address Organization Details Recorded Time 025 Fiberoptic Laryngoscopy completed Jazmin Chavez MD [address] , [place], [address], [facility] & [place] 02/08/2025 15:22:20 025 endoscopic gastrointestinal tract dilation completed [facility] & [place] 02/07/2025 08:25:41 013 dilation of esophagus completed Chelly Kathya OSWALDO [facility] & [place] 02/07/2025 08:23:09 010 arthroscopy of knee with medial and lateral meniscus repair completed [facility] & [place] 02/07/2025 08:22:[address] [facility] & [place] 02/07/2025 08:20:50 Imaging Results None recorded. Procedure Notes None recorded. Medical Equipment None Reported. Allergies Allergen ID Allergen Name Allergen Category Reaction Reaction Severity Criticality Documentation Date Start Date Code Code System Note Provider Name and Address Organization Details Recorded Time 73544 oxycodone medicatio n Not available Not available Not available 10/03/2022 7804 RxNorm OSWALDO [place] [facility] & [place] 3 12:04:19 Medications Name Sig Start Date Stop Date Status Note LastModified by Organization Details LastModified Time fluoxetine 40 mg capsule TAKE ONE CAPSULE BY MOUTH EVERY DAY active Not Available Not Available No t Available atorvastati n 40 mg tablet TAKE ONE TABLET BY MOUTH EVERY DAY active Not Available Not Available No t Available levothyroxi ne 137 mcg tablet TAKE ONE TABLET BY MOUTH EVERY DAY 02/07 completed Not Available Not Available Not Available prednisone 20 mg tablet TAKE 2 TABLETS BY MOUTH EVERY DAY 02/07 completed Not Available Not Available Not Available sulfamethox azole 800 mg-trimetho prim 160 mg tablet TAKE 1 TABLET BY MOUTH TWICE A DAY 02/07 completed Not Available Not Available Not Available triamcinolo ne acetonide 0.1 % topical cream apply sparingly TO affected area(s) TWICE DAILY FOR 10 DAYS NEEDED do not apply TO face -- FOR EXTERNAL USE ONLY-- active Not Available Not Available No t Available levothyroxi ne 100 mcg tablet TAKE ONE TABLET BY MOUTH EVERY MORNING ON an EMPTY stomach 02/07 completed Not Available Not Available Not Available phenazopyri dine 100 mg tablet TAKE 1 TABLET BY MOUTH THREE TIMES A DAY NEEDED 02/07 completed Not Available Not Available Not Available hydrocodone 7.5 mg-acetamin ophen 325 mg tablet TAKE ONE TABLET BY MOUTH THREE TIMES DAILY NEEDED MAY CAUSE DROWSINES S active Not Available Not Available No t Available levothyroxi ne 125 mcg tablet TAKE ONE TABLET BY MOUTH EVERY DAY IN THE MORNING ON an EMPTY stomach active Not Available Not Available No t Available omeprazole 20 mg capsule,del ayed release TAKE ONE CAPSULE BY MOUTH ONCE DAILY, 30 MINUTES BEFORE MORNING MEAL 02/07 completed Not Available Not Available Not Available hydrochloro thiazide 25 mg tablet TAKE ONE TABLET BY MOUTH ONCE DAILY NEEDED FOR SWELLING active Not Available Not Available No t Available cefuroxime axetil 500 mg tablet TAKE ONE TABLET BY MOUTH EVERY TWELVE HOURS FOR 10 DAYS --TAKE WITH FOOD-- -- FINISH ALL MEDICINE -- 02/07 completed Not Available Not Available Not Available estradiol 0.01% (0.1 mg/gram) vaginal cream INSERT 2 G INTO THE VAGINA 2 (TWO) TIMES A WEEK. AT BEDTIME. active Not Available Not Available No t Available dicyclomine 10 mg capsule TAKE ONE CAPSULE BY MOUTH THREE TIMES DAILY active Not Available Not Available No t Available diazepam 5 mg tablet TAKE ONE TABLET BY MOUTH THREE TIMES DAILY NEEDED MAY CAUSE DROWSINES S active Not Available Not Available No t Available nabumetone 500 mg tablet TAKE ONE TABLET BY MOUTH TWICE DAILY --TAKE WITH FOOD-- 02/07 completed Not Available Not Available Not Available hydrochloro thiazide 02/08 completed Not Available Not Available Not Available Lortab 2.5 02/07 completed Not Available Not Available Not Available Synthroid 02/07 completed Not Available Not Available Not Available Gavilyte-C 240 gram-22.72 gram-6.72 gram-5.84 gram oral solution mix AND drink 8 ounces EVERY 15 MINUTES UNTIL EMPTY PER office direction s 12/30 completed Not Available Not Available Not Available Multi For Her 02/08 completed Not Available Not Available Not Available Linzess 145 mcg capsule Take 1 capsule every day by oral route before meals for 30 days. 02/07 completed Not Available Not Available Not Available Vitals Date Recorded Body weight Body temperature Provider N oriana and Address Organization Details Last Updated DateTime 02/08/2025 35238.88 g 97.8 [degF] Anabel Tyler [facility] & [place] 02/08/2025 14:04:17 Social History None recorded. Functional Status None recorded. Mental Status None recorded. Family History Nothing Reported. Medical History Condition Response Allergies/Hayfever Y Anxiety Disorder Y Hyperlipidemia Y Cancer Y Arthritis Y Thyroid Problems Y Depression Y Gynecological HistoryNo gynecological history recorded. Obstetrics History GPAL:G 0 P 0 0 0 0 Immunizations Vaccine Type Date Status Note Provider Nam e and Address Organization Details Recorded Time Influenza, split virus, quadrivalent, preservative 7 completed Nicky velasco [place] [facility] & [place] 10/03/2022 11:57:06 Influenza, split virus, quadrivalent, preservative 1 [facility] [place] 10/03/2022 11:57:06 Influenza, split virus, quadrivalent, preservative 9 completed Nicky velasco [facility] & [place] 10/03/2022 11:57:06 Influenza, split virus, quadrivalent, preservative 0 completed Nicky Bryant null, [place] [facility] - [place] & [place] 10/03/2022 11:57:06 Influenza, split virus, quadrivalent, preservative 5 completed Nicky Bryant null, [place] [facility] - [place] & [place] 10/03/2022 11:57:06 Influenza, split virus, quadrivalent, preservative 6 completed Nicky Bryant null, [place] [facility] [place] & [place] 10/03/2022 11:57:06 COVID-19, mRNA, LNP-S, PF, 100 mcg/0.5mL dose or 50 mcg/0.25mL dose 1 completed Nicky Bryant null, [place] [facility] - [place] & [place] 10/03/2022 11:57:06 COVID-19, mRNA, LNP-S, PF, 100 mcg/0.5mL dose or 50 mcg/0.25mL dose 1 completed Nicky Bryant null, [place] [facility] - [place] & [place] 10/03/2022 11:57:06 pneumococcal polysaccharide PPV23 9 completed Nicky Bryant null, [place] [facility] - [place] & [place] 10/03/2022 11:57:06 Tdap 9 completed Nicky Bryant null, [place] [facility] - [place] & [place] 10/03/2022 11:57:06 Pneumococcal conjugate PCV 13 2 completed Nicky Bryant null, [place] [facility] - [place] & [place] 10/03/2022 11:57:06 Influenza, recombinant, trivalent, PF 8 completed Nicky Bryant null, [place] [facility] - [place] & [place] 10/03/2022 11:57:06 Past Encounters Encounter ID Performer Location Encounter Start Date Encounter Closed Date Diagnosis/Indication Diagnosis SNOMED-CT Code Diagnosis ICD10 Code Diagnosis Note [id number] Jazmin Chavez MD [facility] [place] [address] [facility] [address] [place] [address] 02/08/2025 13:59:11 02/08/2025 14:52:23 Dysphagia 83969240 R13.14 Dietary finding 21555704 Z71.3 Health Concerns Section Related Observation LastModified by Organization Detai ls LastModified Time None Recorded Concern Status LastModified by Organization Details LastModified Time None Recorded Payers Encounter Date Sequence Insurance Name Policy Number Policy Perkins Covered Member ID Perkins Member ID Guarantor Name 02/08/2025 1 [employer] (MEDICARE REPLACEMENT/ ADVANTAGE - PPO) Abi Perez [id number] Abi Perez Notes Date Note Type Note Provider Name and Address Organization Details Recorded Time 02/08/2025 text/html 02/08/25 rashawn rivera old female in office for dysphagia. Patient says this issue started a year ago. Patient says she gets choked on almost anything she eats unless it is a soft food. Patient does not get choked on liquid. Patient is not a smoker. Patient did have an esophageal dilation [place] [address] Bennett. Patient has not had a swallow study. Patient says she feels like food gets stuck in her throat. Patient has had a left side partial thyroidectomy for a benign thyroid condition. Jazmin Chavez MD [address], [place], [address], [facility] - [place] - [place] & [place] 02/08/2025 15:24:15 OBGyn Episode No OBEpisode recorded.
--- OUTSIDE RECORDS SUMMARY | 2025-02-22 09:22 | XMS_ITS | CCD ---
Author Name Interface, [id number] lity Address [address] [place], [place] [id number] [place] [address] Oncology an d Hematology Address [address] [place] [address] Care Team Providers Care Hose Operator Name Role Phone Stefany CARD, Georgi Unavailable Unavailable Allergies and Adverse Reactions Medication/Group Name Reaction Severity Date No known allergies Care Plan Date Type Value 03/29/2025 APPOINTMENT FOLLOW UP 05/19/2024 APPOINTMENT FOLLOW UP 04/30/2024 APPOINTMENT Lab 04/30/2024 APPOINTMENT LAB DRAW 04/29/2024 APPOINTMENT Lab 04/20/2024 APPOINTMENT Lab 04/20/2024 APPOINTMENT FOLLOW UP 04/12/2024 APPOINTMENT CBC w/ auto diff 04/05/2024 APPOINTMENT CBC w/ auto diff 03/29/2024 APPOINTMENT Lab 03/29/2024 APPOINTMENT FOLLOW UP 03/29/2024 LABORDER CBC w/ auto diff 03/29/2024 LABORDER CMP 04/05/2024 LABORDER CBC w/ auto diff 04/12/2024 LABORDER CBC w/ auto diff 04/20/2024 LABORDER Methylmalonic ac id + Homocysteine panel 04/20/2024 LABORDER SPEP + K/L light chains panel 04/20/2024 LABORDER CBC w/ auto diff 04/20/2024 LABORDER CMP 04/20/2024 LABORDER Ferritin 04/20/2024 LABORDER Iron profile 04/20/2024 LABORDER Vitamin B12 04/20/2024 LABORDER Reticulocyte cou nt 04/20/2024 LABORDER TSH 04/29/2024 LABORDER CBC w/ auto diff 04/29/2024 LABORDER Reticulocyte cou nt 04/30/2024 LABORDER CBC w/ auto diff 04/30/2024 LABORDER Reticulocyte cou nt Reason for Visit FOLLOW UP Encounters Date Name 04/30/2024 Carotid artery disea se Functional Status Date Name Score 10/28/2022 ECOG performance status - grade 1 1 10/07/2022 ECOG performance status - grade 1 1 09/11/2022 ECOG performance status - grade 1 1 Diagnostic Results Date Type Test Units Lower Limit Upper Limit Result Flag Comments Status Ordered By Specimen Source Lab Address 04/20 Speci men Statu s Repor t TNP Test not performed . Insuffici ent specimen to perform or completea nalysis. TEST: [id number] CBC With Different ial/Plate let [id number] Reticuloc yte Count [facility], [address] [id number] 9 Vincent Ricchiut i PhD 04/30 [place] # (ANC) x10E3/ uL 1.4 7.0 1.8 FINAL Georgi [facility], [address] [id number] 9 Vincent Ricchiut i PhD 04/30 MCV fL 79.0 97.0 85 FINAL Georgi [facility], [address] [id number] 9 Vincent Ricchiut i PhD 04/30 MO # x10E3/ uL 0.1 0.9 0.3 FINAL Georgi [facility], [address] [id number] 9 Vincent Ricchiut i PhD 04/30 IG % % 0 FINAL Georgi [facility], [address] [id number] 9 Vincent Ricchiut i PhD 04/30 MO % % 9 FINAL Georgi [facility], [address] [id number] 9 Vincent Ricchiut i PhD 04/30 IG # x10E3/ uL 0.0 0.1 0.0 FINAL Georgi [facility] [place], [address] [id number] 9 Vincent Ricchiut i PhD 04/30 EO # x10E3/ uL 0.0 0.4 0.2 FINAL Georgi [facility], [address] [id number] 9 Vincent Ricchiut i PhD 04/30 EO % % 5 FINAL Georgi [facility], [address] [id number] 9 Vincent Ricchiut i PhD 04/30 RBC x10E6/ uL 3.77 5.28 3.87 FINAL Georgi [facility], [address] [id number] 9 Vincent Ricchiut i PhD 04/30 BA % % 1 FINAL Georgi [facility], [address] [id number] 9 Vincent Ricchiut i PhD 04/30 BA # x10E3/ uL 0.0 0.2 0.0 FINAL Georgi [facility], [address] [id number] 9 Vincent Ricchiut i PhD 04/30 HGB g/dL 11.1 15.9 10.4 Low FINAL Georgi [facility], [address] [id number] 9 Vincent Ricchiut i PhD 04/30 MCHC g/dL 31.5 35.7 31.5 FINAL Georgi [facility], [address] [id number] 9 Vincent Ricchiut i PhD 04/30 HCT % 34.0 46.6 33.0 Low FINAL Georgi [facility], [address] [id number] 9 Vincent Ricchiut i PhD 04/30 WBC x10E3/ uL 3.4 10.8 3.5 FINAL Georgi [facility], [address] [id number] 9 Vincent Ricchiut i PhD 04/30 PLT x10E3/ uL 150.0 450.0 206 FINAL Georgi [facility], [address] [id number] 9 Vincent Ricchiut i PhD 04/30 RDW % 11.7 15.4 16.7 High FINAL Georgi [facility], [address] [id number] 9 Vincent Ricchiut i PhD 04/30 LY % % 32 FINAL Georgi [facility], [address] [id number] 9 Vincent Ricchiut i PhD 04/30 MCH pg 26.6 33.0 26.9 FINAL [facility], [address] [id number] 9 Akira Champagne i PhD 04/30 LY # x10E3/ uL 0.7 3.1 1.1 FINAL Georgi [facility], [address] [id number] 9 Akira Champagne i PhD 04/30 [place] % % 53 FINAL Georgi [facility], [address] [id number] 9 Akira Champagne i PhD 04/20 TSH uIU/mL 0.45 4.5 9.750 High FINAL Georgi [facility], [address] [id number] 9 Akira Champagne i PhD 04/20 Homoc ystei ne, plasm a umol/L 0.0 17.2 14.5 FINAL Georgi [facility], [address] [id number] 9 Akira Champagne i PhD 04/20 Vitam in B12 pg/mL 232.0 1245.0 507 FINAL Georgi [facility], [address] [id number] 9 Akira Champagne i PhD 04/20 Cornelius tin panel Cornelius tin ng/mL 15.0 150.0 67 FINAL Georgi [facility], [address] [id number] 9 Akira Champagne i PhD 04/20 Methy lmalo haroon acid, serum nmol/L 0.0 378.0 397 High FINAL [facility], [address] [facility] [id number] [phone] Aston Harris MD 04/30 PDF Repor t1 See header setup operator d FINAL Georgi [facility], [address] [id number] 9 Akira Champagne i PhD 04/20 Iron profi le Unbou nd iron capac ity ug/dL 118.0 369.0 291 FINAL Georgi [facility], [address] [id number] 9 Akira Champagne i PhD 04/20 Iron profi le Iron, % satur ation % 15.0 55.0 29 [facility], [address] [id number] 9 Akira Champagne i PhD 04/20 Iron profi le Iron ug/dL 27.0 139.0 119 FINAL Georgi [facility], [address] [id number] 9 Akira Champagne i PhD 04/20 Iron profi le TIBC ug/dL 250.0 450.0 410 FINAL Georgi [facility], [address] [id number] 9 Akira Champagne i PhD 04/30 Retic ulocy te count % 0.6 2.6 2.0 FINAL Georgi [facility], [address] [id number] 9 Akira Champagne i PhD 04/20 Prote in elect ropho resis [place] /[place] Ratio ,S 0.26 1.65 1.26 FINAL Georgi [facility], [address] [id number] 9 Akira Champagne i PhD 04/20 Prote in elect ropho resis Album in, SPE, g/dL g/dL 2.9 4.4 3.9 FINAL Georgi [facility], [address] [id number] 9 Akira Champagne i PhD 04/20 Prote in elect ropho resis [place] light chain , free mg/L 3.3 19.4 17.7 FINAL Georgi [facility], [address] [id number] 9 Akiar Champagne i PhD 04/20 Prote in elect ropho resis Alpha -2 globu kiana g/dL 0.4 1.0 0.7 FINAL Georgi [facility], [address] [id number] 9 Akira Champagne i PhD 04/20 Prote in elect ropho resis Total prote in g/dL 6.0 8.5 6.9 FINAL Georgi [facility], [address] [id number] 9 Akira Champagne i PhD 04/20 Prote in elect ropho resis Gamma globu kiana g/dL 0.4 1.8 0.8 FINAL [facility], [address] [id number] 9 Akira Champagne i PhD 04/20 Prote in elect ropho resis Beta globu kiana g/dL 0.7 1.3 1.2 FINAL Georgi [facility], [address] [id number] 9 Akira Champagne i PhD 04/20 Prote in elect ropho resis A/G ratio , SPE 0.7 1.7 1.3 FINAL Georgi [facility], [address] [id number] 9 Akira Champagne i PhD 04/20 Prote in elect ropho resis Alpha -1 globu kiana g/dL 0.0 0.4 0.2 FINAL Georgi [facility], [address] [id number] 9 Akira Champagne i PhD 04/20 Prote in elect ropho resis SPEP with graph N Protein electroph oresis scan will follow via computer, mail, orcourier delivery. FINAL Georgi [facility], [address] [phone] 9 Akira Champagne i PhD 04/20 Prote in elect ropho resis PDF . FINAL Georgi [facility], [address] [id number] 9 Akira Champagne i PhD 04/20 Prote in elect ropho resis [place] a light chain , free mg/L 5.7 26.3 14.0 FINAL Georgi [facility], [address] [id number] 9 Akira Champagne i PhD 04/20 Prote in elect ropho resis M-spi ke, SPE, g/dL g/dL Not Observe d FINAL Georgi [facility], [address] [id number] 9 Akira Champagne i PhD 04/20 Prote in elect ropho resis Globu kiana, SPE g/dL 2.2 3.9 3.0 FINAL Georgi [facility], [address] [id number] 9 Akira Champagne i PhD 04/20 ALT/S GPT IU/L 0.0 32.0 8 FINAL Georgi [facility], [address] [id number] 9 Akira Enriquezut i PhD 04/20 Gluco se mg/dL 70.0 99.0 89 FINAL Georgi [facility], [address] [id number] 9 Akira Enriquezut i PhD 04/20 Globu kiana g/dL 1.5 4.5 2.2 FINAL Georgi [facility], [address] [id number] 9 Akira Enriquezut i PhD 04/20 AST/S GOT IU/L 0.0 40.0 17 FINAL Georgi [facility], [address] [id number] 9 Akira Champagne i PhD 04/20 Bilir ubin, total mg/dL 0.0 1.2 0.3 FINAL Georgi [facility], [address] [id number] 9 Akira Champagne i PhD 04/20 Sodiu m mmol/L 134.0 144.0 141 FINAL Georgi [facility], [address] [id number] 9 Akira Champagne i PhD 04/20 Alkal ine phosp hatas e IU/L 44.0 121.0 87 FINAL Georgi [facility], [address] [id number] 9 Akira Enriquezut sandrita PhD 04/20 Calci um mg/dL 8.7 10.3 9.4 FINAL Georgi [facility], [address] [id number] 9 Akira Champagne i PhD 04/20 CO2 mmol/L 20.0 29.0 24 FINAL Georgi [facility], [address] [id number] 9 Akira Champagne i PhD 04/20 Chlor tino mmol/L 96.0 106.0 103 FINAL [facility] [address] [id number] 9 Akira Champagne i PhD 04/20 BUN mg/dL 8.0 27.0 16 [facility] [address] [phone] 9 Armondjenna Ihsan remy PhD 04/20 Creat inine mg/dL 0.57 1.0 0.90 FINAL [facility] [address] [id number] 9 Akira Champagne i PhD 04/20 eGFR mL/min /1.73 70 FINAL [facility] [address] [id number] 9 Armondjenna Ihsan remy PhD 04/20 Album in g/dL 3.9 4.9 4.7 FINAL Georgi Mccall [facility], [address] [id number] 9 Akira Champagne i PhD 04/20 BUN/C reati nine ratio 12.0 28.0 18 FINAL [facility] [address] [id number] 9 Akira Champagne i PhD 04/20 Potas sium mmol/L 3.5 5.2 3.9 FINAL Georgi Mccall [facility], [address] [id number] 9 Akira Champagne i PhD Medications Date Name Route Dose Frequency Instructions Start Date End Date Status Cholecalciferol Oral active Hydrocodone-Acetamin ophen Oral 7.5 mg-325 mg po tid as needed active Diazepam Oral act chirstine Levothyroxine Oral active Ferrous Sulfate Oral active Problems Diagnosis Status Date of Diagnosis Resolution Date Anal cancer, canal Active Hypothyroidism Active Leukopenia Active Advance directive informatio n unavailable (finding) Active Carotid artery disease Active Iron deficiency anemia (disorder) Active Anemia Active Procedures Date Category Name Instructions Status 02/26/2024 Physician Order RTC MD Ordered 05/18/2024 Physician Order RTC MD Ordered 03/29/2025 Physician Order RTC MD Ordered Social History Date Name Value Sex Female Visits Date Type Value 03/29/2025 FOLLOW UP Vital Signs Date Type Value 03/29/2024 Pain Scale 0.00 03/29/2024 Body Temperature 98.10 03/29/2024 BSA 1.89 03/29/2024 BMI 30.05 03/29/2024 Height 65.00 03/29/2024 Weight 180.60 03/29/2024 Intravascular Systolic 135 03/29/2024 Intravascular Diastolic 66 03/29/2024 Oxygen Saturation 95.00 03/29/2024 Respiratory Rate 16.00 03/29/2024 Heart Beat 69.00 04/20/2024 Pain Scale 0.00 04/20/2024 BMI 29.09 04/20/2024 Height 65.00 04/20/2024 Oxygen Saturation 95.00 04/20/2024 BSA 1.87 04/20/2024 Body Temperature 98.10 04/20/2024 Intravascular Systolic 152 04/20/2024 Intravascular Diastolic 89 04/20/2024 Heart Beat 70.00 04/20/2024 Weight 174.80 04/20/2024 Respiratory Rate 16.00 Notes Section * Clinic Note Patient:?SCOUT MOREL MRN:?[id number] Date:?04/20/2024 :?1955 Attending Physician:?Georgi Mccall Diagnosis * Anal cancer, canal * Carotid artery disease Chief Complaint Follow-up for Anal CA and Anemia HPI The patient is a 68-year-old female who was 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 She had a history of hemorrhoids since April 2015 that worsened over time. She saw GI was thought to have an anal fissure. She had surgery to repair the fissure and a mass was found. ?A biopsy showed a squamous cell carcinoma the anus. She was staged as an AJCC clinical T1N0M0, Stage I. She began combined modality therapy with radiation and 5-FU/mitomycin on 19 February 2016. She completed 2 cycles of 5-FU/mitomycin-C with radiation. ?Her radiation was completed on 10 April 2016.?She had a complete remission from treatment.?She had a post treatment biopsy of the anal lesion by Dr. Geetha Cagle, of Surgery in [facility] which was negative. A restaging CT scan performed in August 2016 was negative for malignancy although there was thickening in the distal rectum/anus.?She had a colonoscopy on 09 October [address] Cagle examined her under anesthesia and did another biopsy on the same day. The results were negative for malignancy. She had a repeat biopsy of her anal area in July [address] Cagle. The results were negative. She last saw Dr. Cagle in Aug [address] Hector (Radiation Oncology) in Sep 2021. Her last CT scanwas negative for malignancy. Her last mammogram was 10 Jul 2022 and was resulted as BI-RADS 1.?She had a colonoscopy by Dr. Barreto (GI) in Aug 2021. She is here for follow-up because of new anemia. She feels poorly and fell recently. She denies recent infection. She notes weakness and fatigue. She is taking oral iron compliantly and tolerating itwell. She saw GI and had a repeat colonoscopy and EGD in October 2022. Her activity level is decreased. Overall, she remains without evidence of recurrence. She is losing weight volitionally by walking, exercising and eating more fruits and vegetables. She has seen Dermatology recently for skin cancers. She reports no other changes since her last visit. She did not injure herself. She denies fevers, chills, headache, dizziness, double vision, blurred vision, chest pain, palpitations, cough, wheezing, nausea, vomiting, abdominal pain, bleeding, bruising, rash, itching, tingling, numbness or bonepain. Past Medical History * Anal cancer, canal * Carotid artery disease * Anemia * Hypothyroidism * Iron deficiency anemia (disorder) Past Surgical History * Procedure: Anal fissurectomy (procedure) Family History * Father: - Colorectal cancer * Mother: - Lung cancer Social History Smoking Tobacco : none found; Smokeless Tobacco : none found; Vaping : none found Hospitalizations ? Review of Systems Constitutional: No weight loss, no fever, no chills, no night sweats, energy level good.? Eyes: No diplopia, no transient or permanent loss of vision, no scotomata.? ENT/Mouth: No tinnitus, normal hearing, no epistaxis, no hoarseness, no oral ulcers, no gingival bleeding, no sore throat, no postnasal drip, no mouth pain, no sinus pain, no dysphagia.? Cardiovascular: No chest pain, no palpitations, no syncope, no upper extremity edema, no lower extremity edema, no calf discomfort.? Respiratory: No Cough, no hemoptysis, no pleurisy, no wheezing.? Gastrointestinal: No abdominal pain, no nausea, no vomiting, no constipation, no hematochezia, no jaundice, no abnormal cramping, no hematemesis, no diarrhea, no melena, no dyspepsia, no dysphagia.? Musculoskeletal: No muscle pain, no swollen joints redness, no bone pain, no spine tenderness.? Skin: No rash, no nodules, no pruritus, no lesions.? Neurological: No Confusion, no seizures, no syncope, no tremor, no speech change, no headache, no hiccups, no abnormal gait, no weakness, no sensory changes.? Psychiatric: No depression, no anxiety, concentration normal.? Endocrine: No polyuria, no polydipsia, no thyroid disease symptoms, no hot flashes.? Hematologic: No epistaxis, no bleeding, no petechiae, no ecchymosis.? Lymphatic: No lymphadenopathy, no lymphedema.? Allergy/Immunologic: No eczema, no frequent mucous membrane infections, no frequent respiratory infections, no recurrent urticaria, no frequent skin infections. ? Allergies/Adverse Events No known medication allergies ? Medications * Ferrous Sulfate Oral 325 mg (65 mg iron) tablet * Synthroid (Levothyroxine Oral) 100 mcg capsule * Hydrocodone-Acetaminophen Oral 7.5 mg-325 mg 7.5-325 mg tablet po tid as needed * Valium (Diazepam Oral) 5 mg tablet * Vitamin D3 (Cholecalciferol Oral) (1,000 unit) Mental/Functional ECOG Status 1 Symptoms, but ambulatory. Restricted in physically strenuous activity, but ambulatory and able tocarry out work of a light or sedentary nature (e.g., light housework, office work). (Date: 10/28/2022) Vitals Blood pressure: 152/89, Pulse: 70, Temperature: 98.1 F, Respirations: 16, O2 sat: 95%, Pain Scale: 0, Height: 65 in, Weight: 174.8 lb, BSA: 1.87, BMI: 29.09 kg/m2 Physical Exam GEN: Well-developed, well-nourished, well-appearing female, alert and oriented, no apparent distress. HEAD: Normocephalic, Atraumatic. EYES: PERRLA, EOMI, Sclerae clear MOUTH/THROAT: No erythema, exudate or signs of infection. Teeth have fair dentition. NECK: Soft, nontender, supple, no masses LUNGS: Clear to auscultation bilaterally, no wheezes/rales/rhonchi; Breath sounds are equal bilaterally CV: RRR, Normal S1 and S2, No S3 or S4, No murmur/rub/gallop, No increased JVP visible ABDOMEN: Soft, tender to palpation in the mid and lower abdomen, no guarding or rebound, no hepatomegaly, no splenomegaly, no masses LYMPH NODES: There is no cervical, supraclavicular, infraclavicular, axillary or inguinal adenopathy palpable. EXT: No clubbing and cyanosis. There is trace edema of the legs. MUSCULOSKELETAL: Normal inspection, No muscle tenderness. NEURO: Motor is normal, CN II-XII intact SKIN: No lesions. Skin is warm and dry Assessment & Plan Carcinoma of anal canal (disorder) As the patient had?a complete remission, the NCCN guideline recommendation was a digital rectal exam and inguinal palpation for adenopathy every 3-6 months for 5 years.?Anoscopy was recommendedevery 6-12 months for 3 [address] scan of the chest, abdomen and pelvis was recommended annually for 3 years for T3/T4 lesions or for positive inguinal lymph nodes. Her last CT scan was in Aug 2019 and this was negative. She is more than 8?years post diagnosis now. See above. Her last colonoscopy was with Dr. Barreto in October 2022 and was normal?I will check her CBC and CMP and call her with the results. We will make no changes. She will continue to follow up?on an annual basis. Iron Deficiency Anemia The patient's routine CBC ?Aug 2022 revealed a hemoglobin of 8.8. Her prior hemoglobin was 12.30 October 2021. We repeated the hemoglobin one week later and it had improved to 10.2. A screening evaluation with her repeat CBC including a reticulocyte count, haptoglobin level, ferritin, iron studies, vitamin B12 level, and TSH. Her screening evaluation was remarkable for iron deficiency with a ferritin of 9. ?To complete her screening evaluation, I ordered?a urinalysis which was negative for hematuria.?She is taking oral iron daily and she is tolerating this well.?I also referred her back to GI.?She had?a colonoscopy and EGD on 17 November 2022. She reports that this evaluation was negative. Her recent CBC showed a worsening anemia and leukopenia. I will repeat her screening evaluation to include her CBC, CMP, iron studies, ferritin, retic count, haptoglobin, B12, SPEP and light chains. If her bicytopenia persists, we will pursue a bone marrow biopsy.? Leukopenia As above.? Plan: CBC and CMP reviewed/ordered CBC, CMP, iron studies, ferritin, retic count, haptoglobin, B12, SPEP and light chains ordered Continue oral iron daily Follow-up in [address] Maya Problem List * Anal cancer, canal * Carotid artery disease * Anemia * Hypothyroidism * Iron deficiency anemia (disorder) Today's Regimen ? Laboratory Lab Results 04/05/2024 03/29/2024 08/28/2023 03/07/2023 12/10/1910/28/2022 CBC WBC x 10^3/uL 3.0 (L) 4.7 5.2 4.4 3.5 4.5 RBC x 10^6/uL 3.37 (L) 3.42 (L) 4.50 4.59 4.13 4.30 HGB g/dL 8.5 (L) 8.8 (L) 12.5 12.8 11.0 (L) 11.2 HCT % 27.9 (L) 28.0 (L) 37.7 37.9 33.8 (L) 34.9 MCV fL 83 82 84 83 82 81 MCH pg 25.2 (L) 25.7 (L) 27.8 27.9 26.6 26.0 (L) MCHC g/dL 30.5 (L) 31.4 (L) 33.2 33.8 32.5 32.1 RDW % 13.3 13.0 12.5 13.2 15.5 (H) 17.1 (H) PLT x 10^3/uL 228 275 253 231 236 229 [place] % 45 58 53 52 45 56 LY % 40 29 34 33 37 32 MO % 10 7 7 11 9 9 EO % 5 5 5 3 7 3 BA % 0 1 1 1 2 0 IG % 0 0 0 0 0 0 [place] # (ANC) x 10^3/uL 1.3 (L) 2.7 2.8 2.3 1.6 2.5 LY # x 10^3/uL 1.2 1.4 1.8 1.5 1.3 1.4 MO # x 10^3/uL 0.3 0.4 0.4 0.5 0.3 0.4 EO # x 10^3/uL 0.2 0.2 0.2 0.2 0.2 0.2 BA # x 10^3/uL 0.0 0.0 0.1 0.0 0.1 0.0 IG # x 10^3/uL 0.0 0.0 0.0 0.0 0.0 0.0 New Orders ?* 04/20/2024, CBC w/ auto diff, Perform Date: 04/20/2024, Associated problem(s): Anal cancer, canal *(C21.1); Carotid artery disease * (I70.8) * 04/20/2024, CMP, Perform Date: 04/20/2024, Associated problem(s): Anal cancer, canal * (C21.1); Carotid artery disease * (I70.8) * 04/20/2024, Ferritin, Perform Date: 04/20/2024, Associated problem(s): Anal cancer, canal * (C21.1); Carotid artery disease * (I70.8) * 04/20/2024, Iron profile, Perform Date: 04/20/2024, Associated problem(s): Anal cancer, canal * (C21.1); Carotid artery disease * (I70.8) * 04/20/2024, Methylmalonic acid + Homocysteine panel, Perform Date: 04/20/2024, Associated problem(s): Anal cancer, canal * (C21.1); Carotid artery disease * (I70.8) * 04/20/2024, Reticulocyte count, Perform Date: 04/20/2024, Associated problem(s): Anal cancer, canal* (C21.1); Carotid artery disease * (I70.8) * 04/20/2024, SPEP + K/L light chains panel, Perform Date: 04/20/2024, Associated problem(s): Anal cancer, canal * (C21.1); Carotid artery disease * (I70.8) * 04/20/2024, TSH, Perform Date: 04/20/2024, Associated problem(s): Anal cancer, canal * (C21.1); Carotid artery disease * (I70.8) * 04/20/2024, Vitamin B12, Perform Date: 04/20/2024, Associated problem(s): Anal cancer, canal * (C21.1); Carotid artery disease * (I70.8) ? * 04/20/2024, MARY GRACE CARD, Perform Date: 4 Weeks, Associated problem(s): Anal cancer, canal * (C21.1); Carotid artery disease * (I70.8) * 03/29/2024, MARY GRACE CARD, Perform Date: 12 Months, Associated problem(s): Anal cancer, canal * (C21.1); Carotid artery disease * (I70.8) * 08/28/2023, MARY GRACE CARD, Perform Date: 6 Months, Associated problem(s): Anal cancer, canal * (C21.1); Carotid artery disease * (I70.8) * 03/07/2023, MARY GRACE CARD, Perform Date: 6 Weeks, Associated problem(s): Anal cancer, canal * (C21.1); Carotid artery disease * (I70.8) * 03/07/2023, MARY GRACE CARD, Perform Date: 4 Months, Associated problem(s): Anal cancer, canal * (C21.1); Carotid artery disease * (I70.8) * 12/09/2022, MARY GRACE CARD, Perform Date: 3 Months, Associated problem(s): Anal cancer, canal * (C21.1); Carotid artery disease * (I70.8) * 10/28/2022, MARY GRACE CARD, Perform Date: 6 Weeks, Associated problem(s): Anal cancer, canal * (C21.1); Carotid artery disease * (I70.8) * 10/07/2022, MARY GRACE CARD, Perform Date: 3 Weeks, Associated problem(s): Anal cancer, canal * (C21.1); Carotid artery disease * (I70.8) * 09/20/2022, GI consult, Instructions: Refer back to Dr. Barreto for evaluation of GI blood loss Scheduled 10/03/2022 @ 11:30am , Perform Date: Prior to Next Visit, Associated problem(s): Anal cancer, canal * (C21.1); Anemia (D64.9) * 09/11/2022, MARY GRACE CARD, Perform Date: 12 Months, Associated problem(s): Anal cancer, canal * (C21.1); Carotid artery disease * (I70.8) * 11/05/2021, Cardiology consult, Perform Date: Prior to Next Visit, Associated problem(s): Anal cancer, canal * (C21.1); Carotid artery disease * (I70.8) * 11/05/2021, MARY GRACE CARD, Perform Date: 12 Months, Associated problem(s): Anal cancer, canal * (C21.1) * 04/05/2021, MARY GRACE CARD, Perform Date: 12 Months, Associated problem(s): Anal cancer, canal * (C21.1) * 05/17/2020, GI consult, Instructions: Dr. Barreto, GI, [facility] for intermittent nausea and abdominal pain, Perform Date: Prior to Next Visit, Associated problem(s): Anal cancer, canal * (C21.1) * 05/17/2020, MARY GRACE CARD, Perform Date: 4 Months, Associated problem(s): Anal cancer, canal * (C21.1) ? Georgi Mccall Send copy of note to:? 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 She had a history of hemorrhoids since April 2015 that worsened over time. She saw GI was thought to have an anal fissure. She had surgery to repair the fissure and a mass was found. ?A biopsy showed a squamous cell carcinoma the anus. She was staged as an AJCC clinical T1N0M0, Stage I. She began combined modality therapy with radiation and 5-FU/mitomycin on 19 February 2016. She completed 2 cycles of 5-FU/mitomycin-C with radiation. ?Her radiation was completed on 10 April 2016.?She had a complete remission from treatment.?She had a post treatment biopsy of the anal lesion by Dr. Geetha Cagle, of Surgery in [facility] which was negative. A restaging CT scan performed in August 2016 was negative for malignancy although there was thickening in the distal rectum/anus.?She had a colonoscopy on 09 October [address] Cagle examined her under anesthesia and did another biopsy on the same day. The results were negative for malignancy. She had a repeat biopsy of her anal area in July [address] Cagle. The results were negative. She last saw Dr. Cagle in Aug [address] Hector (Radiation Oncology) in Sep 2021. Her last CT scanwas negative for malignancy. Her last mammogram was 10 Jul 2022 and was resulted as BI-RADS 1.?She had a colonoscopy by Dr. Barreto () in Aug 2021. She is here for follow-up. She feels well. She is taking oral iron compliantly and tolerating it well. She? saw and had a repeat colonoscopy and EGD in October 2022. Her activity level is normal.Overall, she remains without evidence of recurrence. She is losing weight volitionally by walking, exercising and eating more fruits and vegetables. She has seen Dermatology recently for skin cancers. She reports no changes since her last visit aside from falling recently. She did not injure herself.She denies fevers, chills, headache, dizziness, double vision, blurred vision, chest pain, palpitations, cough, wheezing, nausea, vomiting, abdominal pain, bleeding, bruising, rash, itching, tingling, numbness or bone pain. Past Medical History * Anal cancer, canal * Carotid artery disease * Anemia * Hypothyroidism * Iron deficiency anemia (disorder) Past Surgical History * Procedure: Anal fissurectomy (procedure) Family History * Father: - Colorectal cancer * Mother: - Lung cancer Social History Smoking Tobacco : none found; Smokeless Tobacco : none found; Vaping : none found Hospitalizations ? Review of Systems Constitutional: No weight loss, no fever, no chills, no night sweats, energy level good.? Eyes: No diplopia, no transient or permanent loss of vision, no scotomata.? ENT/Mouth: No tinnitus, normal hearing, no epistaxis, no hoarseness, no oral ulcers, no gingival bleeding, no sore throat, no postnasal drip, no mouth pain, no sinus pain, no dysphagia.? Cardiovascular: No chest pain, no palpitations, no syncope, no upper extremity edema, no lower extremity edema, no calf discomfort.? Respiratory: No Cough, no hemoptysis, no pleurisy, no wheezing.? Gastrointestinal: No abdominal pain, no nausea, no vomiting, no constipation, no hematochezia, no jaundice, no abnormal cramping, no hematemesis, no diarrhea, no melena, no dyspepsia, no dysphagia.? Musculoskeletal: No muscle pain, no swollen joints redness, no bone pain, no spine tenderness.? Skin: No rash, no nodules, no pruritus, no lesions.? Neurological: No Confusion, no seizures, no syncope, no tremor, no speech change, no headache, no hiccups, no abnormal gait, no weakness, no sensory changes.? Psychiatric: No depression, no anxiety, concentration normal.? Endocrine: No polyuria, no polydipsia, no thyroid disease symptoms, no hot flashes.? Hematologic: No epistaxis, no bleeding, no petechiae, no ecchymosis.? Lymphatic: No lymphadenopathy, no lymphedema.? Allergy/Immunologic: No eczema, no frequent mucous membrane infections, no frequent respiratory infections, no recurrent urticaria, no frequent skin infections. ? Allergies/Adverse Events No known medication allergies ? Medications * Ferrous Sulfate Oral 325 mg (65 mg iron) tablet * Synthroid (Levothyroxine Oral) 100 mcg capsule * Hydrocodone-Acetaminophen Oral 7.5 mg-325 mg 7.5-325 mg tablet po tid as needed * Valium (Diazepam Oral) 5 mg tablet * Vitamin D3 (Cholecalciferol Oral) (1,000 unit) Mental/Functional ECOG Status 1 Symptoms, but ambulatory. Restricted in physically strenuous activity, but ambulatory and able tocarry out work of a light or sedentary nature (e.g., light housework, office work). (Date: 10/28/2022) Vitals Blood pressure: 135/66, Pulse: 69, Temperature: 98.1 F, Respirations: 16, O2 sat: 95%, Pain Scale: 0, Height: 65 in, Weight: 180.6 lb, BSA: 1.89, BMI: 30.05 kg/m2 Physical Exam GEN: Well-developed, well-nourished, well-appearing female, alert and oriented, no apparent distress. HEAD: Normocephalic, Atraumatic. EYES: PERRLA, EOMI, Sclerae clear MOUTH/THROAT: No erythema, exudate or signs of infection. Teeth have fair dentition. NECK: Soft, nontender, supple, no masses LUNGS: Clear to auscultation bilaterally, no wheezes/rales/rhonchi; Breath sounds are equal bilaterally CV: RRR, Normal S1 and S2, No S3 or S4, No murmur/rub/gallop, No increased JVP visible ABDOMEN: Soft, tender to palpation in the mid and lower abdomen, no guarding or rebound, no hepatomegaly, no splenomegaly, no masses LYMPH NODES: There is no cervical, supraclavicular, infraclavicular, axillary or inguinal adenopathy palpable. EXT: No clubbing and cyanosis. There is trace edema of the legs. MUSCULOSKELETAL: Normal inspection, No muscle tenderness. NEURO: Motor is normal, CN II-XII intact SKIN: No lesions. Skin is warm and dry Assessment & Plan Carcinoma of anal canal (disorder) As the patient had?a complete remission, the NCCN guideline recommendation was a digital rectal exam and inguinal palpation for adenopathy every 3-6 months for 5 years.?Anoscopy was recommendedevery 6-12 months for 3 years[address] CT scan of the chest, abdomen and pelvis was recommended annually for 3 years for T3/T4 lesions or for positive inguinal lymph nodes. Her last CT scan was in Aug 2019 and this was negative. She is more than 8?years post diagnosis now. See above. Her last colonoscopy was with Dr. Barreto in October 2022 and was normal?I will check her CBC and CMP and call her with the results. We will make no changes. She will continue to follow up?on an annual basis, sooner if necessary. Iron Deficiency Anemia The patient's routine CBC ?Aug 2022 revealed a hemoglobin of 8.8. Her prior hemoglobin was 12.30 October 2021. We repeated the hemoglobin one week later and it had improved to 10.2. A screening evaluation with her repeat CBC including a reticulocyte count, haptoglobin level, ferritin, iron studies, vitamin B12 level, and TSH. Her screening evaluation was remarkable for iron deficiency with a ferritin of 9. ?To complete her screening evaluation, I ordered?a urinalysis which was negative for hematuria.?She is taking oral iron daily and she is tolerating this well.?I also referred her back to GI.?She had?a colonoscopy and EGD on 17 November 2022. She reports that this evaluation was negative. I will repeat her CBC today and I will call her with the results..? Plan: CBC and CMP reviewed/ordered Continue oral iron daily Follow-up [address] Maya Problem List * Anal cancer, canal * Carotid artery disease * Anemia * Hypothyroidism * Iron deficiency anemia (disorder) Today's Regimen ? Laboratory Lab Results 08/28/2023 03/07/2023 12/09/2022 10/28/2022 10/07/1909/17/2022 CBC WBC x 10^3/uL 5.2 4.4 3.5 4.5 4.0 4.7 RBC x 10^6/uL 4.50 4.59 4.13 4.30 4.41 4.11 HGB g/dL 12.5 12.8 11.0 (L) 11.2 11.2 10.2 (L) HCT % 37.7 37.9 33.8 (L) 34.9 35.1 32.3 (L) MCV fL 84 83 82 81 80 79 MCH pg 27.8 27.9 26.6 26.0 (L) 25.4 (L) 24.8 (L) MCHC g/dL 33.2 33.8 32.5 32.1 31.9 31.6 RDW % 12.5 13.2 15.5 (H) 17.1 (H) 17.1 (H) 13.5 PLT x 10^3/uL 253 231 236 229 270 330 [place] % 53 52 45 56 50 50 LY % 34 33 37 32 33 34 MO % 7 11 9 9 10 10 EO % 5 3 7 3 5 5 BA % 1 1 2 0 1 1 IG % 0 0 0 0 1 0 [place] # (ANC) x 10^3/uL 2.8 2.3 1.6 2.5 2.0 2.4 LY # x 10^3/uL 1.8 1.5 1.3 1.4 1.3 1.6 MO # x 10^3/uL 0.4 0.5 0.3 0.4 0.4 0.4 EO # x 10^3/uL 0.2 0.2 0.2 0.2 0.2 0.2 BA # x 10^3/uL 0.1 0.0 0.1 0.0 0.0 0.0 IG # x 10^3/uL 0.0 0.0 0.0 0.0 0.0 0.0 New Orders ?* 03/29/2024, CBC w/ auto diff, Perform Date: 03/29/2024, Associated problem(s): Anal cancer, canal *(C21.1); Carotid artery disease * (I70.8) * 03/29/2024, CMP, Perform Date: 03/29/2024, Associated problem(s): Anal cancer, canal * (C21.1); Carotid artery disease * (I70.8) ? * 03/29/2024, RTIzzy CARD, Perform Date: 12 Months, Associated problem(s): Anal cancer, canal * (C21.1); Carotid artery disease * (I70.8) * 08/28/2023, RTIzzy CARD, Perform Date: 6 Months, Associated problem(s): Anal cancer, canal * (C21.1); Carotid artery disease * (I70.8) * 03/07/2023, MARY GRACE CARD, Perform Date: 6 Weeks, Associated problem(s): Anal cancer, canal * (C21.1); Carotid artery disease * (I70.8) * 03/07/2023, RTIzzy CARD, Perform Date: 4 Months, Associated problem(s): Anal cancer, canal * (C21.1); Carotid artery disease * (I70.8) * 12/09/2022, RTIzzy CARD, Perform Date: 3 Months, Associated problem(s): Anal cancer, canal * (C21.1); Carotid artery disease * (I70.8) * 10/28/2022, RTIzzy CARD, Perform Date: 6 Weeks, Associated problem(s): Anal cancer, canal * (C21.1); Carotid artery disease * (I70.8) * 10/07/2022, RTIzzy CARD, Perform Date: 3 Weeks, Associated problem(s): Anal cancer, canal * (C21.1); Carotid artery disease * (I70.8) * 09/20/2022, GI consult, Instructions: Refer back to Dr. Barreto for evaluation of GI blood loss Scheduled 10/03/2022 @ 11:30am , Perform Date: Prior to Next Visit, Associated problem(s): Anal cancer, canal * (C21.1); Anemia (D64.9) * 09/11/2022, MARY GRACE CARD, Perform Date: 12 Months, Associated problem(s): Anal cancer, canal * (C21.1); Carotid artery disease * (I70.8) * 11/05/2021, Cardiology consult, Perform Date: Prior to Next Visit, Associated problem(s): Anal cancer, canal * (C21.1); Carotid artery disease * (I70.8) * 11/05/2021, MARY GRACE CARD, Perform Date: 12 Months, Associated problem(s): Anal cancer, canal * (C21.1) * 04/05/2021, MARY GRACE CARD, Perform Date: 12 Months, Associated problem(s): Anal cancer, canal * (C21.1) * 05/17/2020, GI consult, Instructions: Dr. Barreto, GI, [facility] for intermittent nausea and abdominal pain, Perform Date: Prior to Next Visit, Associated problem(s): Anal cancer, canal * (C21.1) * 05/17/2020, MARY GRACE CARD, Perform Date: 4 Months, Associated problem(s): Anal cancer, canal * (C21.1) ? Georgi Mccall Send copy of note to:? Electronically signed by Georgi Mccall MD 03/29/2024 14:46 EDT
--- OUTSIDE RECORDS SUMMARY | 2025-02-22 09:22 | XMS_ITS | Clinical Summary ---
Author Organization [facility] ([place], [place], [place], [place]) Address [address] [place] [address] Care Team Providers Care Project Surveyor Name Role Phone Unavailable Primary Care Provider Unavailabl e Allergies No known active allergies Medications FLUoxetine (PROzac) 40 MG capsule Take 1 capsule (40 mg total) by mouth in the morning. 3 Active dicyclomine (BENTYL) 10 MG capsule Take 1 capsule (10 mg total) by mouth in the morning and 1 capsule (10 mg total) at noon and 1 capsule (10 mg total) in the evening. 3 Active hydroCHLOROthiazi de (HYDRODIURIL) 25 MG tablet Take 1 tablet (25 mg total) by mouth daily as needed. 3 Active HYDROcodone-aceta minophen (NORCO 7.5-325) 7.5-325 mg per tablet Take 1 tablet by mouth 3 (three) times daily as needed. Max Daily Amount: 3 tablets 3 Active levothyroxine (SYNTHROID, LEVOTHROID) 137 MCG tablet Take 1 tablet (137 mcg total) by mouth in the morning. 3 Active nabumetone (RELAFEN) 500 MG tablet TAKE ONE TABLET BY MOUTH TWICE DAILY --TAKE WITH FOOD-- 2 Active omeprazole (PriLOSEC) 20 MG capsule Take 1 capsule (20 mg total) by mouth in the morning. 3 Active silver sulfADIAZINE (SILVADENE, SSD) 1 % creamIndications: Malignant neoplasm of anal canal (HCC) Apply to skin once daily as directed. 400 g 1 3 Active Active Problems Problem Noted Date Diagnosed Date Malignant neoplasm of anal canal 01/17/2016 Family History Medical History Relation Name Comments Colon cancer Father Lung cancer Mother Brain cancer Sister 1 Relation Name Status Comments Brother 2 Father Mother Sister 1 Social History Tobacco Use Types Packs/Day Years Used Date Smoking Tobacco: Never Passive Smoke Exposure: Never Smokeless Tobacco: Never Tobacco Cessation:Counseling Given: No Alcohol Use Standard Drinks/Week Comments Never 0 (1 standard drink = 0.6 oz pur e alcohol) Comments Unknown Sex and Gender Information Value Date Recorded Sex Assigned at Not on file Legal Sex Female 6:38 PM CDT Gender Identity Not on file Sexual Orientation Not on file Plan of Treatment Not on file
--- OUTSIDE RECORDS SUMMARY | 2025-02-22 09:22 | XMS_ITS | Patient Health Record ---
[facility] [address] [facility] [address] [id number] Care Team Providers Care Facing Grinder Name Role Phone Bettie Maya Primary Care Provider Jewel Riggs Unavailable [phone] Allergies No Known Allergies Results Component Value Reference Range Notes P-Sed Rate (ESR) Reviewed date:02/03/2025 08:44:54 AM Interpretation:Normal Performing Lab: Notes/Report: Test performed by [facility] [address] [place] [address] , [place] [address] Nate Munoz MD, Territory Account Manager CLIA: [id number] Erythrocyte Sedimentation Ra te (ESR), Automated 16 <31 mm/hr P-Magnesium Reviewed date:02/03/2025 08:44:54 AM Interpretation:2.0 Performing Lab: Notes/Report: Test performed by [facility] [address] [place] [address] , [facility], [place] [address] Nate Munoz MD, Territory Account Manager CLIA: [id number] Magnesium 2.0 1.6-2.4 mg/dL P-TSH Reviewed date:02/03/2025 08:44:54 AM Interpretation:6.39 Performing Lab: Notes/Report: Test performed by [facility] [address] [place] [address] , [facility], [place] [address] Nate Munoz MD, Territory Account Manager CLIA: [id number] TSH 6.39 0.43-5.25 mU/L S-V-Dmpoolcy Protein (CRP) Reviewed date:02/03/2025 08:44:54 AM Interpretation:Normal Performing Lab: Notes/Report: Test performed by [facility] , [address], [place] [address] Nate Munoz MD, Territory Account Manager CLIA: [id number] C-Reactive Protein (CRP) 0.12 <0.50 mg/dL P-CPK Reviewed date:02/03/2025 08:44:54 AM Interpretation:Normal Performing Lab: Notes/Report: Test performed by [facility] , [address], [place] [address] Nate Munoz MD, Territory Account Manager CLIA: [id number] Creatine Kinase 76 20-180 U/L P-Basic Metabolic Panel (BMP ) Reviewed date:02/03/2025 08:44:54 AM Interpretation:GFR 56 Performing Lab: Notes/Report: Test performed by [facility] [address] , [place] [address] Nate Munoz MD, Territory Account Manager CLIA: [id number] Sodium 140 135-145 mmol/L Potassium 3.8 3.5-5.3 mmol/L Chloride 105 97-108 mmol/L CO2 22 22-32 mmol/L Glucose 117 65-99 mg/dL BUN 17 8-23 mg/dL Creatinine 1.08 0.50-1.00 mg/dL Calcium 9.6 8.6-10.4 mg/dL eGFR by Creatinine 56 >59 mL/min/1.73m2 P-TSH Reviewed date:06/21/2024 05:50:26 PM Interpretation:8.47 Performing Lab: Notes/Report: Test performed by [facility] [address] , [place] [address] Nate Munoz MD, Territory Account Manager CLIA: [id number] TSH 8.47 0.43-5.25 mU/L P-Lipid Panel Reviewed date:06/21/2024 05:50:26 PM Interpretation:chol 230, non-hdl 166, ldl 143 Performing Lab: Notes/Report: Test performed by [facility] [address] , [place] [address] Nate Munoz MD, Territory Account Manager CLIA: [id number] Cholesterol 230 <200 mg/dL Triglycerides 115 <150 mg/dL HDL Cholesterol 64 >39 mg/dL Cholesterol / HDL Ratio 3.59 0.00-4.44 Ratio Non-HDL Cholesterol 166 <130 mg/dL LDL Cholesterol (Calculation) 143 <130 mg/dL LDL Cholesterol Levels* Less than 100 mg/dL Optimal 100 to 129 mg/dL Near Optimal/ Above Optimal 130 to 159 mg/dL Borderline High 160 to 189 mg/dL High 190 mg/dL and above Very High * Categories as recommended by the 2004 ATPIII guidelines LDL/HDL Ratio 2.2 <3.3 Ratio LDL Cholesterol Patient History Test Date: 03/06/2023 LDL Results: 73 Units: mg/dL % Change: - Test Date: 10/16/2023 LDL Results: 156 Units: mg/dL % Change: +113% Test Date: 06/17/2024 LDL Results: 143 Units: mg/dL % Change: -8% P-Comprehensive Metabolic Pa donavon (CMP) Reviewed date:06/21/2024 05:50:26 PM Interpretation:Cr 1.03, gfr 59 Performing Lab: Notes/Report: Test performed by [facility] [address] [place], [place] [address] [place] , [address], [place] [address] Nate Munoz MD, Territory Account Manager CLIA: [id number] Sodium 142 135-145 mmol/L Potassium 3.6 3.5-5.3 mmol/L Chloride 105 97-108 mmol/L CO2 28 22-32 mmol/L Glucose 78 65-99 mg/dL BUN 10 8-23 mg/dL Creatinine 1.03 0.50-1.00 mg/dL Calcium 9.3 8.6-10.4 mg/dL eGFR by Creatinine 59 >59 mL/min/1.73m2 Protein 6.4 6.0-8.3 g/dL Albumin 4.3 3.5-5.3 g/dL Alkaline Phosphatase 72 35-121 IU/L ALT (SGPT) 11 <5-47 IU/L AST (SGOT) 20 <5-40 IU/L Bilirubin, Total 0.4 <0.2-1.2 mg/dL A/G Ratio 2.0 1.1-2.5 X ray : Knee, right Reviewed date:09/22/2024 11:21:09 AM Interpretation:mild to moderate OA Performing Lab: Notes/Report: mild to moderate OA P-Basic Metabolic Panel (BMP ) Reviewed date:09/23/2024 09:10:32 AM Interpretation:co2- 21 Performing Lab: Notes/Report: Test performed by [facility] [address] [place] [address] , [address], [place] [address] Nate Munoz MD, Territory Account Manager CLIA: [id number] Sodium 138 135-145 mmol/L Potassium 4.1 3.5-5.3 mmol/L Chloride 105 97-108 mmol/L CO2 21 22-32 mmol/L Glucose 83 65-99 mg/dL BUN 21 8-23 mg/dL Creatinine 0.93 0.50-1.00 mg/dL Calcium 9.1 8.6-10.4 mg/dL eGFR by Creatinine 67 >59 mL/min/1.73m2 P-Lipid Panel Reviewed date:09/23/2024 09:10:32 AM Interpretation:chol 221, non-hdl 162, ldl 146 Performing Lab: Notes/Report: Test performed by [facility], [address] , [address], [place] [address] Nate Munoz MD, Territory Account Manager CLIA: [id number] Cholesterol 221 <200 mg/dL Triglycerides 82 <150 mg/dL HDL Cholesterol 59 >39 mg/dL Cholesterol / HDL Ratio 3.75 0.00-4.44 Ratio Non-HDL Cholesterol 162 <130 mg/dL LDL Cholesterol (Calculation) 146 <130 mg/dL LDL Cholesterol Levels* Less than 100 mg/dL Optimal 100 to 129 mg/dL Near Optimal/ Above Optimal 130 to 159 mg/dL Borderline High 160 to 189 mg/dL High 190 mg/dL and above Very High * Categories as recommended by the 2004 ATPIII guidelines LDL/HDL Ratio 2.5 <3.3 Ratio LDL Cholesterol Patient History Test Date: 10/16/2023 LDL Results: 156 Units: mg/dL % Change: +113% Test Date: 06/17/2024 LDL Results: 143 Units: mg/dL % Change: -8% Test Date: 09/21/2024 LDL Results: 146 Units: mg/dL % Change: +2% P-TSH Reviewed date:09/23/2024 09:10:32 AM Interpretation:Normal Performing Lab: Notes/Report: Test performed by [facility] [address] , [address], [place] [address] Nate Munoz MD, Territory Account Manager CLIA: [id number] TSH 3.74 0.43-5.25 mU/L X ray : Knee, right Reviewed date:02/03/2025 08:44:54 AM Interpretation: Performing Lab: Notes/Report: Medications Medication SIG (Take, Route, Frequency, Duration) Notes Start Date End Date Status Potassium Chloride ER 10 MEQ 1 tablet with food Orally Once a day; Duration: 90 days Active hydroCHLOROthiazide 25 mg TAKE ONE TABLE T BY MOUTH ONCE DAILY NEEDED FOR SWELLING; Duration: 90 Active Atorvastatin Calcium 40 MG 1 tab(s) oral ly once a day; Duration: 30 day(s) Active diazePAM 5 MG 1 tab(s) orally 3 times a day as needed; Duration: 30 days 01/29/2025 Active HYDROcodone-Acetaminophen 7.5-325 MG 1 tab(s) orally 3 times a day as needed; Duration: 30 days 01/29/2025 Active PROzac 40 MG 1 cap(s) orally once a day; Duration: 30 day(s) 11/25/2022 Active Cefuroxime Axetil 500 MG 1 tab(s) orally every 12 hours; Duration: 10 day(s) 08/27/2022 Not-Taking Probiotic - as directed Orally Active Mupirocin 2 % 1 rajesh applied topically 3 times a day 08/19/2022 Not-Taking Levothyroxine Sodium 150 MCG 1 tablet in the morning on an empty stomach Orally Once a day 02/08/2025 Active Estradiol 0.1 MG/GM 1 g intravaginally 3 times a week 11/30/2018 Active Nabumetone 500 MG 1 tab(s) orally 2 times a day; Duration: 30 days Active Dicyclomine HCl 10 MG 1 cap(s) orally Th ree times a day; Duration: 30 day(s) 11/25/2022 Active Trulance 3 MG 1 tablet Orally Once a day 03/07/2023 Active Immunizations Vaccine Route Administration Date Status Comme nts xFluzone Intradermal (18-64yrs)-trivalent ID Intradermal 06/13/2014 Administered xFluzone (6mos and older)-trivalent IM Intramuscular 05/29/2010 Administered xFluzone (6mos and older)-trivalent IM Intramuscular 08/23/2011 Administered Tetanus Tdap-Adacel (over 7yrs) IM Intramuscular 11/30/2018 Administered Prevnar (PCV13) IM Intramuscular 11/26/2021 Administered PNEUMOVAX 23 VACCINE IM Intramuscular 06/10/2019 Administe red Fluzone Quad (6months&older) IM Intramuscular 07/13/2015 Administered Fluzone Quad (6months&older) IM Intramuscular 08/05/2016 Administered Fluzone Quad (6months&older) IM Intramuscular 04/21/2017 Administered Fluzone Quad (6months&older) IM Intramuscular 05/31/2021 Administered Fluzone High Dose (65yr and older) IM Intramuscular 10/16/2023 Administered Fluzone High Dose (65yr and older) IM Intramuscular 06/17/2024 Administered COVID 19 Moderna Unknown 04/06/2021 Administered COVID 19 Moderna Unknown 05/04/2021 Administered Fluzone Quad-Medicare (6months&older) IM Intramuscular 06/10/2019 Administered Fluzone Quad-Medicare (6months&older) IM Intramuscular 06/30/2020 Administered Flublok IM Intramuscular 07/28/2018 Administered Problems Problem Type SNOMED Code ICD Code Onset Dates Problem Status W/U Status Risk Notes Problem Vitamin D deficiency (02365546) Vitamin D deficiency (E55.9) Active confirmed Problem Anemia (899662398) Anemia (D64.9) Active confirmed Problem Dyspepsia (954393932) Dyspepsia (K30) Active confirmed Problem Osteopenia (854057595) Osteopenia (M85.80) Active confirmed Problem Seasonal allergy (364120391) Seasonal allergies (J30.2) Active confirmed Problem Disorder of lumbar disc (483095099) Lumbar disc disease (M51.9) Active confirmed Problem BMI 30+ - obesity (962971494) BMI 32.0-32.9,adult (Z68.32) Active confirmed Problem Body mass index 30+ - obesity (596476310) BMI 30.0-30.9,adult (Z68.30) Active confirmed Problem Carotid artery stenosis (92379041) Carotid stenosis (I65.29) Active confirmed Problem Primary generalised osteoarthritis (498898703) Primary generalized (osteo)arthritis (M15.0) Active confirmed Problem Chronic pain syndrome (811705629) Chronic pain syndrome (G89.4) Active confirmed Problem Chronic pain (27182430) Other chronic pain (G89.29) Active confirmed Problem Acquired hypothyroidism (682604184) Acquired hypothyroidism (E03.9) Active confirmed Problem Primary osteoarthritis (107693712) Primary osteoarthritis involving multiple joints (M15.0) Active confirmed Problem Osteoarthritis of knee (270789277) Primary osteoarthritis of right knee (M17.11) Active confirmed Problem Dysphagia (29528950) Dysphagia, unspecified type (R13.10) Active confirmed Problem Dyslipidemia (634181659) Dyslipidemia (E78.5) Active confirmed Problem Prolapsed lumbar intervertebral disc (782294489) Lumbar disc herniation (M51.26) Active confirmed Problem Pain due to neoplastic disease (98271817664820) Cancer associated pain (G89.3) Active confirmed Problem Dyssomnia (03639896) Sleep disturbances (G47.9) Active confirmed Problem Anal squamous cell carcinoma (045259885) 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 Vital Signs Heart Rate 81 /min 02/01/2025 Blood pressure diastolic 62 mm Hg 02/01/2025 Height 63.50 in 02/01/2025 Blood pressure systolic 120 mm Hg 02/01/2025 Weight 178.2 lbs 02/01/2025 BMI 31.07 kg/m2 02/01/2025 Encounters Encounter Location Date Provider Diagnosis [facility] [address] [place] [id number] 03/23/2024 R Miles Zulma Lumbar disc disease M51.9 ; Anal squamous cell carcinoma C21.0 ; Chronic pain syndrome G89.4 and Strain of neck muscle S16.1XXA [facility] [address] [place] [id number] 06/17/2024 R Miles Zulma Lumbar disc disease M51.9 ; Anal squamous cell carcinoma C21.0 ; Chronic pain syndrome G89.4 ; Acquired hypothyroidism E03.9 ; Dyslipidemia E78.5 ; Anemia D64.9 and Encounter for immunization Z23 [facility] [address] [place] [id number] 09/21/2024 R Miles Zulma Knee pain, right M25 .561 ; Adult general medical examination Z00.00 ; Fall W19.XXXA ; Dyslipidemia E78.5 ; Acquired hypothyroidism E03.9 ; Soft corn L84 ; Primary osteoarthritis involving multiple joints M15.0 ; Lumbar disc disease M51.9 ; Osteopenia M85.80 ; Anal squamous cell carcinoma C21.0 ; Cancer associated pain G89.3 and BMI 30.0-30.9,adult Z68.30 [facility] [address] [place] [id number] 11/30/2024 R Miles Zulma Lumbar disc disease M51.9 ; Cancer associated pain G89.3 and Primary osteoarthritis of right knee M17.11 [facility] [address] [place] [id number] 02/01/2025 R Miles Zulma Myalgia M79.10 ; Acquired hypothyroidism E03.9 ; Anemia D64.9 and Chronic pain syndrome G89.4 [facility] [address] [place] [id number] 02/03/2025 R Miles Zulma Acquired hypothyroid ism E03.9 [facility] [address] [place], [place] [id number] 03/15/2024 R Miles Zulma Chronic low back jessica n M54.5 [facility] [address] [place], [place] [id number] 04/19/2024 R Miles Zulma Lumbar disc disease M51.9 and Chronic pain syndrome G89.4 [facility] [address] [place], [place] [id number] 05/18/2024 R Miles Zulma Chronic pain syndrom e G89.4 [facility] [address] [place], [place] [id number] 06/21/2024 R Miles Zulma Acquired hypothyroid ism E03.9 [facility] [address] [place], [place] [id number] 06/23/2024 R Miles Zulma Acquired hypothyroid ism E03.9 [facility] [address] [place], [place] [id number] 06/24/2024 R Miles Zulma Lumbar disc disease M51.9 [facility] [address] [place], [place] [id number] 07/26/2024 R Miles Zulma Lumbar disc disease M51.9 [facility] [address] [place], [place] [id number] 08/26/2024 R Miles Zulma Lumbar disc disease M51.9 [facility] [address] [place], [place] [id number] 09/22/2024 R Miles Zulma Knee pain M25.569 [facility] [address] [place] [id number] 09/23/2024 R Miles Zulma Dyslipidemia E78.5 [facility] [address] [place], [place] [id number] 09/23/2024 R Miles Zulma Lumbar disc disease M51.9 [facility] [address] [place] [id number] 10/25/2024 R Miles Zulma Lumbar disc disease M51.9 [facility] [address] [place] [id number] 10/26/2024 R Miles Zulma Dyslipidemia E78.5 [facility] [address] [place], [place] [id number] 12/29/2024 R Miles Zulma Lumbar disc disease M51.9 and Cancer associated pain G89.3 [facility] [address] [place], [place] [id number] 01/24/2025 Jewel Clio Lumbar disc disease M51.9 and Cancer associated pain G89.3 [facility] [address] [place], [place] [id number] 01/31/2025 R Miles Zulma [facility] [address] [place], [place] [id number] 02/02/2025 R Miles Zulma Dysphagia, unspecifi ed type R13.10 [facility] [address] [place], [place] [id number] 02/05/2025 R Miles Zulma Screening for osteoporosis Z13.820 Assessments Encounter Date Diagnosis (ICD Code) Assessment Notes Treatment Notes Treatment Clinical Notes Section Notes 03/15/2024 Chronic low back pain (ICD-10 - M54.5) 03/23/2024 Lumbar disc disease (ICD-10 - M51.9) 03/23/2024 Anal squamous cell carcinoma (ICD-10 - C21.0) 04/19/2024 Lumbar disc disease (ICD-10 - M51.9) 05/18/2024 Chronic pain syndrome (ICD-10 - G89.4) 06/17/2024 Lumbar disc disease (ICD-10 - M51.9) 06/17/2024 Anal squamous cell carcinoma (ICD-10 - C21.0) 06/21/2024 Acquired hypothyroidism (ICD-10 - E03.9) 06/23/2024 Acquired hypothyroidism (ICD-10 - E03.9) 06/24/2024 Lumbar disc disease (ICD-10 - M51.9) 07/26/2024 Lumbar disc disease (ICD-10 - M51.9) 08/26/2024 Lumbar disc disease (ICD-10 - M51.9) 09/21/2024 Knee pain, right (ICD-10 - M25.561) 09/21/2024 Adult general medical examination (ICD-10 - Z00.00) Patient instructed to return to office Annually for Annual Wellness Visits to include annual screenings of Pain assessment, Functional Ability assessment, Cognitive Ability assessment, Fall Risk assessment, Depression screening and Bladder control screening. 09/22/2024 Knee pain (ICD-10 - M25.569) 09/23/2024 Dyslipidemia (ICD-10 - E78.5) 09/23/2024 Lumbar disc disease (ICD-10 - M51.9) 10/25/2024 Lumbar disc disease (ICD-10 - M51.9) 10/26/2024 Dyslipidemia (ICD-10 - E78.5) 11/30/2024 Lumbar disc disease (ICD-10 - M51.9) 11/30/2024 Cancer associated pain (ICD-10 - G89.3) 12/29/2024 Lumbar disc disease (ICD-10 - M51.9) 01/24/2025 Lumbar disc disease (ICD-10 - M51.9) 02/01/2025 Myalgia (ICD-10 - M79.10) 02/02/2025 Dysphagia, unspecified type (ICD-10 - R13.10) 02/03/2025 Acquired hypothyroidism (ICD-10 - E03.9) 02/05/2025 Screening for osteoporosis (ICD-10 - Z13.820) 02/01/2025 Acquired hypothyroidism (ICD-10 - E03.9) 01/24/2025 Cancer associated pain (ICD-10 - G89.3) 12/29/2024 Cancer associated pain (ICD-10 - G89.3) 11/30/2024 Primary osteoarthritis of right knee (ICD-10 - M17.11) 09/21/2024 Fall (ICD-10 - W19.XXXA) 06/17/2024 Chronic pain syndrome (ICD-10 - G89.4) 04/19/2024 Chronic pain syndrome (ICD-10 - G89.4) 03/23/2024 Chronic pain syndrome (ICD-10 - G89.4) 03/23/2024 Strain of neck muscle (ICD-10 - S16.1XXA) Alternate heat and ice 06/17/2024 Acquired hypothyroidism (ICD-10 - E03.9) 09/21/2024 Dyslipidemia (ICD-10 - E78.5) 02/01/2025 Anemia (ICD-10 - D64.9) 02/01/2025 Chronic pain syndrome (ICD-10 - G89.4) 06/17/2024 Dyslipidemia (ICD-10 - E78.5) 09/21/2024 Acquired hypothyroidism (ICD-10 - E03.9) 06/17/2024 Anemia (ICD-10 - D64.9) Continue f/u with Dr. Mccall 09/21/2024 Soft corn (ICD-10 - L84) 06/17/2024 Encounter for immunization (ICD-10 - Z23) 09/21/2024 Primary osteoarthritis involving multiple joints (ICD-10 - M15.0) 09/21/2024 Lumbar disc disease (ICD-10 - M51.9) 09/21/2024 Osteopenia (ICD-10 - M85.80) 09/21/2024 Anal squamous cell carcinoma (ICD-10 - C21.0) 09/21/2024 Cancer associated pain (ICD-10 - G89.3) 09/21/2024 BMI 30.0-30.9,adult (ICD-10 - Z68.30) Plan Of Treatment Pending Test Test Name Order Date Bone density 11/19/2022 Bone density 02/05/2025 Insurance Providers Payer Name Payer Address Payer Phone Subscriber Number Group Number Insured Name Patient Relationship to Insured Coverage Start Date Coverage End Date [employer] (MEDICAR E) [address] [address] [place] [address] [id number] SCOUT MOREL Self - patient is the insured Medications Administered Medication Instructions Date of Administration Dosage Notes Dexamethasone 08/04/2008 1 mL Dexamethasone 05/08/2009 1 mL Medical (General) History Medical History History ICD Code Hypothyroidism allergic rhinitis osteoarthritis DJD of knees Irritable bowel syndrome Lumbar disc herniation - permanent restr ictions from Dr. 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 Kilpatrick for annual PAP an d mammogram Anxiety disorder Anemia - Dr. Mccall Surgical History Surgery Date(Month/Year) partial thyroidectomy - benign colloid c yst December 24, 2007 Arthroscopic repair of medial and latera l meniscus of left knee March 22, 2010 Esophagus stretched and polyp removed fr om throat/Dr Bennett 03/11/13 bladder exploratory 11/2013 skin cancer removed off of face 03-22-14 basal cell skin cancer removed from left shoulder 05/2014 [facility] for DDD/DJD - Dr. Ho 12/2014 Excision of anal cancer 01/17/16 C-scope/ Case 10/2022 EGD with dilitation/ Case 10/2022 Hospitalization History Reason Date(Month/Year) [facility] 08/2019 [facility] 04/06/17 [facility] post thyroidectomy, Dr. Bennett 12/23 [facility] fell and hurt left kne e 03/05/10
--- OUTSIDE RECORDS SUMMARY | 2025-02-22 09:22 | XMS_ITS ---
Author Name Interface, [id number] lity Address [address] [place], [place] [id number] [place] [address] [facility] Address [address] [place] [address] Allergies and Adverse Reactions Medication/Group Name Reaction Severity Date No known allergies Plan Date Type Value 03/29/2025 APPOINTMENT FOLLOW UP 05/19/2024 APPOINTMENT FOLLOW UP 04/30/2024 APPOINTMENT Lab 04/30/2024 APPOINTMENT LAB DRAW 04/29/2024 APPOINTMENT Lab 04/20/2024 APPOINTMENT FOLLOW UP 04/20/2024 APPOINTMENT Lab 04/12/2024 APPOINTMENT CBC w/ auto diff 04/05/2024 APPOINTMENT CBC w/ auto diff 03/29/2024 APPOINTMENT Lab 03/29/2024 APPOINTMENT FOLLOW UP 08/28/2023 APPOINTMENT Lab 08/28/2023 APPOINTMENT FOLLOW UP 06/30/2023 APPOINTMENT FOLLOW UP 03/07/2023 APPOINTMENT Lab 03/07/2023 APPOINTMENT FOLLOW UP 12/09/2022 APPOINTMENT Lab 12/09/2022 APPOINTMENT FOLLOW UP 10/28/2022 APPOINTMENT FOLLOW UP 10/28/2022 APPOINTMENT Lab 10/28/2022 LABORDER CBC w/ auto diff 10/28/2022 LABORDER CMP 12/09/2022 LABORDER CBC w/ auto diff 12/09/2022 LABORDER CMP 03/07/2023 LABORDER CMP 03/07/2023 LABORDER CBC w/ auto diff 03/07/2023 LABORDER CBC w/ auto diff 03/07/2023 LABORDER CMP 08/28/2023 LABORDER CMP 08/28/2023 LABORDER CBC w/ auto diff 03/29/2024 LABORDER CBC w/ auto diff 03/29/2024 [...] for Visit FOLLOW UP Encounters Date Name 10/28/2022 Advance directive in formation unavailable (finding) 10/28/2022 Anal cancer, canal 10/28/2022 Carotid artery disea se 10/28/2022 Iron deficiency anem ia (disorder) 10/28/2022 Leukopenia Diagnostic Results Date Type Test Units Lower Limit Upper Limit Result Flag Comments Status Ordered By Specimen Source Lab Address 10/28 WBC x10E3/ uL 3.4 10.8 4.5 FINAL Laura [address] [id number] Akira Chapmagne i PhD 10/28 RBC x10E6/ uL 3.77 5.28 4.30 FINAL Laura [address] [id number] Akira Champagne i PhD 10/28 HGB g/dL 11.1 15.9 11.2 FINAL Laura [address] [id number] Akira Champagne i PhD 10/28 HCT % 34.0 46.6 34.9 FINAL Laura [address] [id number] Akira Champagne i PhD 10/28 MCV fL 79.0 97.0 81 FINAL Laura [address] [id number] Akira Champagne i PhD 10/28 MCH pg 26.6 33.0 26.0 Low FINAL Laura [place] [id number] [facility] [place] [id number] 9 Vincent Ricchiut i PhD 10/28 MCHC g/dL 31.5 35.7 32.1 FINAL Laura Godoy [facility], [address] [facility] [place] [id number] 9 Vincent Ricchiut i PhD 10/28 RDW % 11.7 15.4 17.1 High FINAL Laura Godoy [facility], [address] [facility] [place] [id number] 9 Vincent Ricchiut i PhD 10/28 PLT x10E3/ uL 150.0 450.0 229 FINAL Laura Godoy [facility], [address] [facility] [id number] Vincent Ricchiut i PhD 10/28 [place] % % 56 FINAL Laura Godoy [facility], [address] [facility] [place] [id number] 9 Vincent Ricchiut i PhD 10/28 LY % % 32 FINAL Laura Godoy [facility], [address] [facility] [place] [id number] 9 Vincent Ricchiut i PhD 10/28 MO % % 9 FINAL Laura Godoy [facility], [address] [facility] [place] [id number] 9 Vincent Ricchiut i PhD 10/28 EO % % 3 FINAL Laura Godoy [facility], [address] [facility] [place] [id number] 9 Vincent Ricchiut i PhD 10/28 BA % % 0 FINAL Laura Godoy [facility], [address] [facility] [place] [id number] 9 Vincent Ricchiut i PhD 10/28 [place] # (ANC) x10E3/ uL 1.4 7.0 2.5 FINAL Laura Godoy [facility], [address] [facility] [place] [id number] 9 Vincent Ricchiut i PhD 10/28 LY # x10E3/ uL 0.7 3.1 1.4 FINAL Laura Godoy [facility], [address] [facility] [id number] 9 Vincent Ricchiut i PhD 10/28 MO # x10E3/ uL 0.1 0.9 0.4 [facility] [address] [id number] 9 Vincent Ricchiut i PhD 10/28 EO # x10E3/ uL 0.0 0.4 0.2 [facility] [address] [facility] [place] [id number] 9 Vincent Ricchiut i PhD 10/28 BA # x10E3/ uL 0.0 0.2 0.0 [facility] [address] [facility] [id number] 9 Vincent Ricchiut i PhD 10/28 IG % % 0 [facility] [address] [facility] [id number] 9 Vincent Ricchiut i PhD 10/28 IG # x10E3/ uL 0.0 0.1 0.0 [facility]AL [facility] [address] [facility] [id number] Vincent Ricchiut i PhD 10/28 Gluco se mg/dL 70.0 99.0 107 High [facility] [address] [facility] [id number] Vincent Ricchiut i PhD 10/28 BUN mg/dL 8.0 27.0 14 [facility] [address] [facility] [id number] 9 Vincent Ricchiut i PhD 10/28 Creat inine mg/dL 0.57 1.0 0.92 [facility]AL [facility] [address] [facility] [id number] 9 Vincent Ricchiut i PhD 10/28 eGFR mL/min /1.73 69 [facility]AL [facility] [address] [facility] [id number] 9 Vincent Ricchiut i PhD 10/28 BUN/C reati nine ratio 12.0 28.0 15 FINAL [facility] [address] [facility] [id number] Vincent Ricchiut i PhD 03/06 /2023 Sodiu m mmol/L 134.0 144.0 143 [facility] [address] [facility] [id number] Vincent Ricchiut i PhD 10/28 Potas sium mmol/L 3.5 5.2 3.6 FINAL [facility] [address] [facility] [id number] Vincent Ricchiut i PhD 10/28 Chlor tino mmol/L 96.0 106.0 109 High [facility]AL [facility] [address] [facility] [id number] Vincent Ricchiut i PhD 10/28 CO2 mmol/L 20.0 29.0 21 FINAL [facility] [address] [facility] [id number] Vincent Ricchiut i PhD 10/28 Calci um mg/dL 8.7 10.3 9.1 FINAL [facility] [address] [facility] [id number] 9 Vincent Ricchiut i PhD 10/28 Total prote in g/dL 6.0 8.5 6.6 FINAL Laura [facility], [address] [facility] [id number] Vincent Ricchiut i PhD 10/28 Album in g/dL 3.8 4.8 4.4 FINAL Laura [facility], [address] [facility] [id number] Vincent Ricchiut i PhD 10/28 Globu kiana g/dL 1.5 4.5 2.2 FINAL Laura [facility], [address] [facility] [address] [id number] Vincent Ricchiut i PhD 10/28 A/G ratio 1.2 2.2 2.0 FINAL Laura [facility], [address] [facility] [id number] Vincent Ricchiut i PhD 10/28 Bilir ubin, total mg/dL 0.0 1.2 <0.2 FINAL Laura [facility], [address] [facility] [address] [id number] Vincent Ricchiut i PhD 10/28 Alkal ine phosp hatas e IU/L 44.0 121.0 90 FINAL Laura Godoy [facility], [address] [facility] [id number] 9 Armondjenna Enriquezut i PhD 10/28 AST/S GOT IU/L 0.0 40.0 18 FINAL Laura Godoy [facility], [address] [facility] [address] [id number] 9 Armondjenna Enriquezut i PhD 10/28 ALT/S GPT IU/L 0.0 32.0 13 FINAL Laura Godoy [facility], [address] [facility] [id number] Armondjenna Hawleyalexaut i PhD 10/28 PDF Repor t1 See attache cole FINAL Laura Godoy [facility], [address] [facility] [id number] Armondjenna Hawleykrys rmey PhD 12/09 PDF Repor t1 See attache cole FINAL [facility], [address] [facility] [id number] 9 Akira Enriquezut i PhD 12/09 Gluco se mg/dL 70.0 99.0 83 FINAL [facility], [address] [facility] [id number] 9 Akira Enriquezut i PhD 12/09 BUN mg/dL 8.0 27.0 16 FINAL [facility], [address] [facility] [id number] 9 Akira Hawleychiut i PhD 12/09 Creat inine mg/dL 0.57 1.0 0.86 FINAL [facility], [address] [facility] [id number] 9 Armondent Ricchiut i PhD 12/09 eGFR mL/min /1.73 74 FINAL [facility], [address] [facility] [id number] 9 Armondent Chandanchiut i PhD 12/09 BUN/C reati nine ratio 12.0 28.0 19 FINAL [facility], [address] [id number] Armondent Chadnanchiut i PhD 12/09 Sodiu m mmol/L 134.0 144.0 141 FINAL [facility], [address] [id number] 9 Armondent Ricchiut i PhD 12/09 Potas sium mmol/L 3.5 5.2 3.5 FINAL [facility], [address] [facility] [id number] 9 Vincent Ricchiut i PhD 12/09 Chlor tino mmol/L 96.0 106.0 104 FINAL [facility], [address] [facility] [id number] 9 Vincent Ricchiut i PhD 12/09 CO2 mmol/L 20.0 29.0 24 FINAL [facility], [address] [facility] [address] [id number] 9 Vincent Ricchiut i PhD 12/09 Calci um mg/dL 8.7 10.3 9.3 FINAL [facility], [address] [id number] 9 Vincent Ricchiut i PhD 12/09 Total prote in g/dL 6.0 8.5 6.2 FINAL Goergi [facility], [address] [id number] 9 Armondent Ricchiut i PhD 12/09 Album in g/dL 3.8 4.8 4.5 FINAL [facility], [address] [id number] 9 Vincent Ricchiut i PhD 12/09 Globu kiana g/dL 1.5 4.5 1.7 FINAL [facility], [address] [id number] 9 Vincent Ricchiut i PhD 12/09 A/G ratio 1.2 2.2 2.6 High FINAL Georgi [facility], [address] [facility] [id number] Vincent Ricchiut i PhD 12/09 Bilir ubin, total mg/dL 0.0 1.2 0.4 FINAL [facility], [address] [id number] 9 Vincent Ricchiut i PhD 12/09 Alkal ine phosp hatas e IU/L 44.0 121.0 88 FINAL [facility], [address] [id number] 9 Vincent Ricchiut i PhD 12/09 AST/S GOT IU/L 0.0 40.0 20 FINAL [facility], [address] [facility] [id number] 9 Vincent Ricchiut i PhD 12/09 ALT/S GPT IU/L 0.0 32.0 13 FINAL [facility], [address] [id number] Vincent Ricchiut i PhD 12/09 WBC x10E3/ uL 3.4 10.8 3.5 FINAL [facility], [address] [facility] [id number] 9 Vincent Ricchiut i PhD 12/09 RBC x10E6/ uL 3.77 5.28 4.13 FINAL [facility], [address] [facility] [id number] Vincent Ricchiut i PhD 12/09 HGB g/dL 11.1 15.9 11.0 Low FINAL Georgi [facility], [address] [facility] [id number] 9 Vincent Ricchiut i PhD 12/09 HCT % 34.0 46.6 33.8 Low FINAL [facility], [address] [facility] [id number] 9 Vincent Ricchiut i PhD 12/09 MCV fL 79.0 97.0 82 FINAL [facility], [address] [facility] [id number] Vincent Ricchiut i PhD 12/09 MCH pg 26.6 33.0 26.6 FINAL [facility], [address] [facility] [id number] Vincent Ricchiut i PhD 12/09 MCHC g/dL 31.5 35.7 32.5 FINAL [facility], [address] [facility] [id number] Vincent Ricchiut i PhD 12/09 RDW % 11.7 15.4 15.5 High FINAL Georgi Myhand [facility], [address] [place] [id number] 9 Vincent Ricchiut i PhD 12/09 PLT x10E3/ uL 150.0 450.0 236 FINAL Georgi Myhand [facility], [address] [place] [id number] 9 Vincent Ricchiut i PhD 12/09 [place] % % 45 FINAL Georgi Myhand [facility], [address] [place] [id number] 9 Vincent Ricchiut i PhD 12/09 LY % % 37 FINAL Georgi Myhand [facility], [address] [place] [id number] 9 Vincent Ricchiut i PhD 12/09 MO % % 9 FINAL Georgi Myhand [facility], [address] [facility] [place] [id number] 9 Vincent Ricchiut i PhD 12/09 EO % % 7 FINAL Georgi Myhand [facility], [address] [facility] [place] [id number] 9 Vincent Ricchiut i PhD 12/09 BA % % 2 FINAL Georgi Myhand [facility], [address] [facility] [place] [id number] 9 Vincent Ricchiut i PhD 12/09 [place] # (ANC) x10E3/ uL 1.4 7.0 1.6 FINAL Georgi Myhand [facility], [address] [facility] [place] [id number] 9 Vincent Ricchiut i PhD 12/09 LY # x10E3/ uL 0.7 3.1 1.3 FINAL Georgi Myhand [facility], [address] [facility] [place] [id number] 9 Vincent Ricchiut i PhD 12/09 MO # x10E3/ uL 0.1 0.9 0.3 FINAL Georgi Myhand [facility], [address] [facility] [place] [id number] 9 Vincent Ricchiut i PhD 12/09 EO # x10E3/ uL 0.0 0.4 0.2 FINAL Georgi Myhand [facility], [address] [facility] [place] [id number] 9 Vincent Ricchiut i PhD 12/09 BA # x10E3/ uL 0.0 0.2 0.1 FINAL [facility], [address] [facility] [id number] 9 Vincent Ricchiut i PhD 12/09 IG % % 0 FINAL Georgi Myhand [facility], [address] [facility] [place] [id number] 9 Vincent Ricchiut i PhD 12/09 IG # x10E3/ uL 0.0 0.1 0.0 FINAL Georgi Myhand [facility], [address] [facility] [id number] Vincent Ricchiut i PhD 03/07 PDF Repor t1 See attache cole FINAL [facility] [address] [facility] [id number] Vincent Ricchiut i PhD 03/07 Gluco se mg/dL 70.0 99.0 79 FINAL Georgi Myhand [facility], [address] [facility] [id number] 9 Vincent Ricchiut i PhD 03/07 BUN mg/dL 8.0 27.0 15 FINAL [facility], [address] [facility] [id number] 9 Vincent Ricchiut i PhD 03/07 Creat inine mg/dL 0.57 1.0 0.91 FINAL [facility], [address] [facility] [id number] 9 Vincent Ricchiut i PhD 03/07 eGFR mL/min /1.73 70 FINAL [facility], [address] [facility] [id number] 9 Vincent Ricchiut i PhD 03/07 BUN/C reati nine ratio 12.0 28.0 16 FINAL [facility], [address] [facility] [id number] 9 Vincent Ricchiut i PhD 03/07 Sodiu m mmol/L 134.0 144.0 141 FINAL Georgi Myhand [facility], [address] [facility] [id number] 9 Vincent Ricchiut i PhD 03/07 Potas sium mmol/L 3.5 5.2 3.1 Low FINAL Georgiamerica Mccall [facility], [address] [facility] [id number] 9 Akira Enriquezut i PhD 03/07 Chlor tino mmol/L 96.0 106.0 101 FINAL [facility] [address] [facility] [id number] 9 Akira Enriquezut i PhD 03/07 CO2 mmol/L 20.0 29.0 25 FINAL Georgiamerica Mccall [facility], [address] [facility] [id number] 9 Akira Enriquezut i PhD 03/07 Calci um mg/dL 8.7 10.3 10.1 FINAL Georgiamerica Mccall [facility], [address] [facility] [id number] 9 Akira Enriquezut i PhD 03/07 Total prote in g/dL 6.0 8.5 7.0 FINAL Georgi Mccall [facility], [address] [facility] [id number] 9 Akira Enriquezut i PhD 03/07 Album in g/dL 3.9 4.9 4.8 Please note reference interval change FINAL [facility], [address] [facility] [id number] 9 Akira Champagne i PhD 03/07 Globu kiana g/dL 1.5 4.5 2.2 FINAL Georgiamerica Mccall [facility], [address] [facility] [id number] 9 Akira Enriquezut sandrita PhD 03/07 A/G ratio 1.2 2.2 2.2 FINAL [facility], [address] [facility] [id number] 9 Akira Enriquezut i PhD 03/07 Bilir ubin, total mg/dL 0.0 1.2 0.3 FINAL Georgiamerica Mccall [facility], [address] [facility] [id number] 9 Akira Enriquezut i PhD 03/07 Alkal ine phosp hatas e IU/L 44.0 121.0 98 FINAL Georgiamerica Mccall [facility], [address] [facility] [id number] 9 Vincent Ricchiut i PhD 03/07 AST/S GOT IU/L 0.0 40.0 16 FINAL Georgi Mccall [facility], [address] [facility] [id number] 9 Vincent Ricchiut i PhD 03/07 ALT/S GPT IU/L 0.0 32.0 12 FINAL Georgi [facility], [address] [facility] [id number] 9 Vincent Ricchiut i PhD 03/07 WBC x10E3/ uL 3.4 10.8 4.4 FINAL [facility], [address] [facility] [id number] 9 Vincent Ricchiut i PhD 03/07 RBC x10E6/ uL 3.77 5.28 4.59 FINAL [facility] [address] [facility] [id number] 9 Vincent Ricchiut i PhD 03/07 HGB g/dL 11.1 15.9 12.8 FINAL [facility], [address] [facility] [id number] 9 Vincent Ricchiut i PhD 03/07 HCT % 34.0 46.6 37.9 FINAL [facility], [address] [facility] [id number] 9 Vincent Ricchiut i PhD 03/07 MCV fL 79.0 97.0 83 FINAL [facility], [address] [facility] [id number] 9 Vincent Ricchiut i PhD 03/07 MCH pg 26.6 33.0 27.9 FINAL [facility], [address] [facility] [id number] 9 Vincent Ricchiut i PhD 03/07 MCHC g/dL 31.5 35.7 33.8 FINAL [facility], [address] [facility] [id number] 9 Vincent Ricchiut i PhD 03/07 RDW % 11.7 15.4 13.2 FINAL [facility], [address] [facility] [id number] 9 Vincent Ricchiut i PhD 03/07 PLT x10E3/ uL 150.0 450.0 231 FINAL Georgi Myhand [facility], [address] [facility] [place] [id number] 9 Armondent Ricchiut i PhD 03/07 [place] % % 52 FINAL Georgi Myhand [facility], [address] [facility] [place] [id number] 9 Vincent Ricchiut i PhD 03/07 LY % % 33 FINAL Georgi Myhand [facility], [address] [facility] [place] [id number] 9 Vincent Ricchiut i PhD 03/07 MO % % 11 FINAL Georgi Myhand [facility], [address] [facility] [place] [id number] 9 Vincent Ricchiut i PhD 03/07 EO % % 3 FINAL Georgi Myhand [facility], [address] [facility] [place] [id number] 9 Vincent Ricchiut i PhD 03/07 BA % % 1 FINAL Georgi Myhand [facility], [address] [facility] [place] [id number] 9 Vincent Ricchiut i PhD 03/07 [place] # (ANC) x10E3/ uL 1.4 7.0 2.3 FINAL Georgi Myhand [facility], [address] [facility] [place] [id number] 9 Vincent Ricchiut i PhD 03/07 LY # x10E3/ uL 0.7 3.1 1.5 FINAL Georgi Myhand [facility], [address] [facility] [place] [id number] 9 Vincent Ricchiut i PhD 03/07 MO # x10E3/ uL 0.1 0.9 0.5 FINAL Georgi Myhand [facility], [address] [facility] [place] [id number] 9 Vincent Ricchiut i PhD 03/07 EO # x10E3/ uL 0.0 0.4 0.2 FINAL Georgi Myhand [facility], [address] [facility] [place] [id number] 9 Vincent Ricchiut i PhD 03/07 BA # x10E3/ uL 0.0 0.2 0.0 FINAL Georgi Myhand [facility], [address] [facility] [place] [id number] 9 Vincent Ricchiut i PhD 03/07 IG % % 0 FINAL [facility], [address] [facility] [id number] 9 Armondent Chandanchiut i PhD 03/07 IG # x10E3/ uL 0.0 0.1 0.0 FINAL [facility], [address] [facility] [id number] 9 Armondent Ricchiut i PhD 08/28 Gluco se mg/dL 70.0 99.0 83 FINAL [facility], [address] [facility] [id number] 9 Armondent Ricchiut i PhD 08/28 BUN mg/dL 8.0 27.0 13 FINAL [facility], [address] [facility] [id number] 9 Armondent Chandanchiut i PhD 08/28 Creat inine mg/dL 0.57 1.0 0.79 FINAL Georgi [facility], [address] [facility] [id number] 9 Armondent Chandanchiut i PhD 08/28 eGFR mL/min /1.73 82 FINAL Georgi [facility], [address] [facility] [id number] 9 Armondent Chandanchiut i PhD 08/28 BUN/C reati nine ratio 12.0 28.0 16 FINAL Georgi [facility], [address] [facility] [id number] 9 Armondent Ricchiut i PhD 08/28 Sodiu m mmol/L 134.0 144.0 141 FINAL Georgi [facility], [address] [facility] [id number] 9 Vincent Ricchiut i PhD 08/28 Potas sium mmol/L 3.5 5.2 4.0 FINAL Georgi [facility], [address] [facility] [id number] 9 Vincent Ricchiut i PhD 08/28 Chlor tino mmol/L 96.0 106.0 101 FINAL [facility], [address] [facility] [id number] 9 Vincent Ricchiut i PhD 01/04 /2024 CO2 mmol/L 20.0 29.0 24 FINAL Georgi Mccall [facility], [address] [facility] [id number] 9 Akira Champagne i PhD 08/28 Calci um mg/dL 8.7 10.3 9.7 FINAL [facility] [address] [facility] [id number] 9 Akira Champagne i PhD 08/28 Total prote in g/dL 6.0 8.5 6.8 FINAL Georgi Mccall [facility], [address] [facility] [id number] 9 Akira Champagne i PhD 08/28 Album in g/dL 3.9 4.9 4.7 FINAL Georgi Mccall [facility], [address] [facility] [id number] 9 Akira Champagne i PhD 08/28 Globu kiana g/dL 1.5 4.5 2.1 FINAL Georgi Mccall [facility], [address] [facility] [id number] 9 Akira Champagne i PhD 08/28 A/G ratio 1.2 2.2 2.2 FINAL [facility], [address] [facility] [id number] 9 Akira Champagne i PhD 08/28 Bilir ubin, total mg/dL 0.0 1.2 0.3 FINAL [facility], [address] [facility] [id number] 9 Akira Champagne i PhD 08/28 Alkal ine phosp hatas e IU/L 44.0 121.0 102 FINAL [facility], [address] [facility] [id number] 9 Akira Champagne i PhD 08/28 AST/S GOT IU/L 0.0 40.0 19 FINAL [facility], [address] [facility] [id number] 9 Akira Champagne i PhD 08/28 ALT/S GPT IU/L 0.0 32.0 13 FINAL Georgi Mcc[facility], [address] [facility] [id number] 9 Akira Champagne i PhD 08/28 WBC x10E3/ uL 3.4 10.8 5.2 FINAL Georgi Karenand [facility], [address] [facility] [place] [id number] 9 Vincent Ricchiut i PhD 08/28 RBC x10E6/ uL 3.77 5.28 4.50 FINAL Georgi Karenand [facility], [address] [facility] [place] [id number] 9 Vincent Ricchiut i PhD 08/28 HGB g/dL 11.1 15.9 12.5 FINAL Georgi Myhand [facility], [address] [facility] [id number] 9 Vincent Ricchiut i PhD 08/28 HCT % 34.0 46.6 37.7 FINAL Georgi Karenand [facility], [address] [facility] [id number] 9 Vincent Ricchiut i PhD 08/28 MCV fL 79.0 97.0 84 FINAL Georgi Myhand [facility], [address] [facility] [id number] 9 Vincent Ricchiut i PhD 08/28 MCH pg 26.6 33.0 27.8 FINAL Georgi Karenand [facility], [address] [facility] [id number] 9 Vincent Ricchiut i PhD 08/28 MCHC g/dL 31.5 35.7 33.2 FINAL Georgi Myhand [facility], [address] [facility] [place] [id number] 9 Vincent Ricchiut i PhD 08/28 RDW % 11.7 15.4 12.5 FINAL Georgi Myhand [facility], [address] [facility] [place] [id number] 9 Vincent Ricchiut i PhD 08/28 PLT x10E3/ uL 150.0 450.0 253 FINAL Georgi Karenand [facility], [address] [facility] [id number] 9 Vincent Ricchiut i PhD 08/28 [place] % % 53 FINAL Georgi Myhand [facility], [address] [facility] [id number] 9 Vincent Ricchiut i PhD 08/28 LY % % 34 FINAL Georgi Myhand [facility], [address] [facility] [place] [id number] 9 Vincent Ricchiut i PhD 08/28 MO % % 7 FINAL Georgi Myhand [facility], [address] [facility] [place] [id number] 9 Vincent Ricchiut i PhD 08/28 EO % % 5 FINAL Georgi Myhand [facility], [address] [facility] [place] [id number] 9 Vincent Ricchiut i PhD 08/28 BA % % 1 FINAL Georgi Myhand [facility], [address] [facility] [place] [id number] 9 Vincent Ricchiut i PhD 08/28 [place] # (ANC) x10E3/ uL 1.4 7.0 2.8 FINAL Georgi Myhand [facility], [address] [facility] [id number] 9 Vincent Ricchiut i PhD 08/28 LY # x10E3/ uL 0.7 3.1 1.8 FINAL Georgi Myhand [facility], [address] [facility] [place] [id number] 9 Vincent Ricchiut i PhD 08/28 MO # x10E3/ uL 0.1 0.9 0.4 FINAL Georgi Myhand [facility], [address] [facility] [place] [id number] 9 Vincent Ricchiut i PhD 08/28 EO # x10E3/ uL 0.0 0.4 0.2 FINAL Georgi Myhand [facility], [address] [facility] [place] [id number] 9 Vincent Ricchiut i PhD 08/28 BA # x10E3/ uL 0.0 0.2 0.1 FINAL Georgi Myhand [facility], [address] [facility] [place] [id number] 9 Vincent Ricchiut i PhD 08/28 IG % % 0 FINAL Georgi Myhand [facility], [address] [facility] [id number] Vincent Ricchiut i PhD 08/28 IG # x10E3/ uL 0.0 0.1 0.0 FINAL Georgi Myhand [facility], [address] [facility] [id number] Vincent Ricchiut i PhD 08/28 PDF Repor t1 See life assurance representative d FINAL [facility], [address] [facility] [id number] Akira Enriquezut sandrita PhD 03/29 Gluco se mg/dL 70.0 99.0 78 FINAL Georgi Myhand [facility], [address] [facility] [id number] 9 Akira Enriquezut i PhD 03/29 BUN mg/dL 8.0 27.0 16 FINAL Georgi Myhand [facility], [address] [facility] [id number] Akira Enriquezut i PhD 03/29 Creat inine mg/dL 0.57 1.0 0.94 FINAL [facility], [address] [facility] [id number] 9 Akira Enriquezut sandrita PhD 03/29 eGFR mL/min /1.73 67 FINAL [facility], [address] [facility] [id number] Akira Enriquezut sandrita PhD 03/29 BUN/C reati nine ratio 12.0 28.0 17 FINAL [facility], [address] [facility] [id number] Akira Champagne i PhD 03/29 Sodiu m mmol/L 134.0 144.0 140 FINAL [facility], [address] [facility] [id number] Akira Enriquezut sandrita PhD 03/29 Potas sium mmol/L 3.5 5.2 4.0 FINAL [facility], [address] [facility] [id number] 9 Akira Enriquezut i PhD 03/29 Chlor tino mmol/L 96.0 106.0 105 FINAL [facility], [address] [facility] [id number] Akira Enriquezut i PhD 03/29 CO2 mmol/L 20.0 29.0 19 Low FINAL [facility], [address] [facility] [id number] Akira Enriquezut sandrita PhD 03/29 Calci um mg/dL 8.7 10.3 8.9 FINAL [facility], [address] [facility] [id number] Akira Champagne i PhD 03/29 Total prote in g/dL 6.0 8.5 6.8 FINAL [facility]i [facility], [address] [facility] [id number] Akira Champagne i PhD 03/29 Album in g/dL 3.9 4.9 4.4 FINAL [facility], [address] [facility] [id number] Akira Champagne i PhD 03/29 Globu kiana g/dL 1.5 4.5 2.4 [facility]AL [facility] [address] [facility] [id number] Akira Champagne i PhD 03/29 Bilir ubin, total mg/dL 0.0 1.2 0.2 FINAL [facility] [address] [facility] [id number] Akira Champagne i PhD 03/29 Alkal ine phosp hatas e IU/L 44.0 121.0 90 FINAL [facility], [address] [facility] [id number] Akira Champagne i PhD 03/29 AST/S GOT IU/L 0.0 40.0 20 [facility] [address] [facility] [id number] Akria Champagne i PhD 03/29 ALT/S GPT IU/L 0.0 32.0 9 FINAL [facility], [address] [facility] [id number] Akira Champagne i PhD 03/29 PDF Repor t1 See life assurance representative d FINAL [facility] [address] [facility] [id number] Akira Champagne i PhD 03/29 WBC x10E3/ uL 3.4 10.8 4.7 [facility] [address] [facility] [id number] 9 Akira Champagne i PhD 03/29 RBC x10E6/ uL 3.77 5.28 3.42 Low FINAL Georgi Myhand [facility], [address] [facility] [place] [id number] 9 Vincent Ricchiut i PhD 03/29 HGB g/dL 11.1 15.9 8.8 Low FINAL Georgi Myhand [facility], [address] [facility] [place] [id number] 9 Vincent Ricchiut i PhD 03/29 HCT % 34.0 46.6 28.0 Low FINAL Georgi Myhand [facility], [address] [facility] [place] [id number] 9 Vincent Ricchiut i PhD 03/29 MCV fL 79.0 97.0 82 FINAL Georgi Myhand [facility], [address] [facility] [id number] Vincent Ricchiut i PhD 03/29 MCH pg 26.6 33.0 25.7 Low FINAL Georgi Myhand [facility], [address] [facility] [id number] 9 Vincent Ricchiut i PhD 03/29 MCHC g/dL 31.5 35.7 31.4 Low FINAL Georgi Myhand [facility], [address] [facility] [place] [id number] 9 Vincent Ricchiut i PhD 03/29 RDW % 11.7 15.4 13.0 FINAL Georgi Myhand [facility], [address] [facility] [place] [id number] 9 Vincent Ricchiut i PhD 03/29 PLT x10E3/ uL 150.0 450.0 275 FINAL Georgi Myhand [facility], [address] [facility] [place] [id number] 9 Vincent Ricchiut i PhD 03/29 [place] % % 58 FINAL Georgi Myhand [facility], [address] [facility] [place] [id number] 9 Vincent Ricchiut i PhD 03/29 LY % % 29 FINAL Georgi Myhand [facility], [address] [facility] [id number] 9 Vincent Ricchiut i PhD 03/29 MO % % 7 FINAL Georgi Myhand [facility], [address] [facility] [id number] Vincent Ricchiut i PhD 03/29 EO % % 5 FINAL Georgi Myhand [facility], [address] [facility] [place] [id number] 9 Vincent Ricchiut i PhD 03/29 BA % % 1 FINAL Georgi My[facility], [address] [facility] [id number] 9 Vincent Ricchiut i PhD 03/29 [place] # (ANC) x10E3/ uL 1.4 7.0 2.7 FINAL Georgi Myhand [facility], [address] [facility] [id number] Vincent Ricchiut i PhD 03/29 LY # x10E3/ uL 0.7 3.1 1.4 FINAL Georgi Myhand [facility], [address] [facility] [id number] 9 Vincent Ricchiut i PhD 03/29 MO # x10E3/ uL 0.1 0.9 0.4 FINAL Georgi Myhand [facility], [address] [facility] [id number] Vincent Ricchiut i PhD 03/29 EO # x10E3/ uL 0.0 0.4 0.2 FINAL Georgi Myhand [facility], [address] [facility] [place] [id number] 9 Vincent Ricchiut i PhD 03/29 BA # x10E3/ uL 0.0 0.2 0.0 FINAL Georgi Myhand [facility], [address] [facility] [place] [id number] 9 Vincent Ricchiut i PhD 03/29 IG % % 0 FINAL Georgi Myhand [facility], [address] [facility] [id number] Vincent Ricchiut i PhD 03/29 IG # x10E3/ uL 0.0 0.1 0.0 FINAL Georgi Myhand [facility], [address] [facility] [id number] 9 Vincent Ricchiut i PhD 04/05 WBC x10E3/ uL 3.4 10.8 3.0 Low FINAL Georgi Myhand [facility], [address] [facility] [id number] 9 Vincent Ricchiut i PhD 04/05 RBC x10E6/ uL 3.77 5.28 3.37 Low FINAL Georgi Myhand [facility], [address] [facility] [place] [id number] 9 Vincent Ricchiut i PhD 04/05 HGB g/dL 11.1 15.9 8.5 Low FINAL Georgi Myhand [facility], [address] [facility] [place] [id number] 9 Vincent Ricchiut i PhD 04/05 HCT % 34.0 46.6 27.9 Low FINAL Georgi Myhand [facility], [address] [facility] [place] [id number] 9 Vincent Ricchiut i PhD 04/05 MCV fL 79.0 97.0 83 FINAL Gerogi Myhand [facility], [address] [facility] [id number] 9 Vincent Ricchiut i PhD 04/05 MCH pg 26.6 33.0 25.2 Low FINAL Georgi Myhand [facility], [address] [facility] [id number] 9 Vincent Ricchiut i PhD 04/05 MCHC g/dL 31.5 35.7 30.5 Low FINAL Georgi Myhand [facility], [address] [facility] [place] [id number] 9 Vincent Ricchiut i PhD 04/05 RDW % 11.7 15.4 13.3 FINAL Georgi Myhand [facility], [address] [facility] [id number] Vincent Ricchiut i PhD 04/05 PLT x10E3/ uL 150.0 450.0 228 FINAL Georgi Myhand [facility], [address] [facility] [place] [id number] 9 Vincent Ricchiut i PhD 04/05 [place] % % 45 FINAL Georgi Myhand [facility], [address] [facility] [place] [id number] 9 Vincent Ricchiut i PhD 04/05 LY % % 40 FINAL Georgi Myhand [facility], [address] [facility] [id number] Vincent Ricchiut i PhD 04/05 MO % % 10 FINAL Georgi Myhand [facility], [address] [facility] [id number] 9 Vincent Ricchiut i PhD 04/05 EO % % 5 FINAL Georgi Myhand [facility], [address] [facility] [place] [id number] 9 Vincent Ricchiut i PhD 04/05 BA % % 0 FINAL Georgi Myhand [facility], [address] [facility] [id number] 9 Vincent Ricchiut i PhD 04/05 [place] # (ANC) x10E3/ uL 1.4 7.0 1.3 Low FINAL Georgi Myhand [facility], [address] [facility] [id number] Vincent Ricchiut i PhD 04/05 LY # x10E3/ uL 0.7 3.1 1.2 FINAL Georgi Myhand [facility], [address] [facility] [id number] 9 Vincent Ricchiut i PhD 04/05 MO # x10E3/ uL 0.1 0.9 0.3 FINAL Georgi Myhand [facility], [address] [facility] [id number] 9 Vincent Ricchiut i PhD 04/05 EO # x10E3/ uL 0.0 0.4 0.2 FINAL Georgi Myhand [facility], [address] [facility] [place] [id number] 9 Vincent Ricchiut i PhD 04/05 BA # x10E3/ uL 0.0 0.2 0.0 FINAL Georgi Myhand [facility], [address] [facility] [place] [id number] 9 Vincent Ricchiut i PhD 04/05 IG % % 0 FINAL Georgi Myhand [facility], [address] [facility] [id number] 9 Vincent Ricchiut i PhD 04/05 IG # x10E3/ uL 0.0 0.1 0.0 FINAL Georgi Myhand [facility], [address] [facility] [id number] Vincent Ricchiut i PhD 04/05 PDF Repor t1 See life assurance representative d FINAL Georgi Myhand [facility], [address] [facility] [id number] Vincent Ricchiut i PhD 04/20 Methy lmalo haroon acid, serum nmol/L 0.0 378.0 397 High FINAL Georgi Myhand [facility] [place] [facility], [address] [facility] [place] [id number] 1 Aston Harris MD 04/20 PDF Repor t1 See life assurance representative d FINAL Georgi Myhand [facility] [place] [facility], [address] [facility] [place] [id number] 1 Aston Harris MD 04/20 PDF Repor t1 See life assurance representative d FINAL [facility], [address] [facility] [id number] Akira Champagne i PhD 04/20 Cornelius tin panel Cornelius tin ng/mL 15.0 150.0 67 FINAL [facility], [address] [facility] [id number] 9 Akira Champagne i PhD 04/20 WBC x10E3/ uL TNP Test not performed . Insuffici ent specimen to perform or completea nalysis. FINAL [facility], [address] [facility] [place] [id number] 9 Akira Champagne i PhD 04/20 RBC TNP Test not performed FINAL [facility], [address] [facility] [place] [id number] 9 Akira Champagne i PhD 04/20 HGB TNP Test not performed FINAL [facility], [address] [facility] [place] [id number] 9 Akira Champagne i PhD 04/20 HCT TNP Test not performed FINAL [facility], [address] [facility] [place] [id number] 9 Akira Champagne i PhD 04/20 PLT TNP Test not performed FINAL [facility], [address] [facility] [place] [id number] 9 Akira Champagne i PhD 04/20 [place] % TNP Test not performed FINAL [facility], [address] [facility] [place] [id number] 9 Akira Champagne i PhD 04/20 LY % TNP Test not performed FINAL [facility], [address] [facility] [place] [id number] 9 Akira Champagne i PhD 04/20 MO % TNP Test not performed FINAL [facility], [address] [facility] [id number] 9 Akira Champagne i PhD 04/20 EO % TNP Test not performed [facility] [address] [facility] [id number] 9 Akira Champagne i PhD 04/20 LY # TNP Test not performed FINAL Georgi Mccall [facility], [address] [facility] [id number] 9 Akira Champagne i PhD 04/20 EO # TNP Test not performed FINAL Georgi Mccall [facility], [address] [facility] [id number] 9 Akira Champagne i PhD 04/20 BA # TNP Test not performed [facility] [address] [facility] [id number] 9 Akira Champagne i PhD 04/20 Retic ulocy te count % TNP Test not performed . Insuffici ent specimen to perform or completea nalysis. FINAL Georgi Mccall [facility], [address] [facility] [id number] 9 Akira Champagne i PhD 04/20 Speci men Statu s Repor t TNP Test not performed . Insuffici ent specimen to perform or completea nalysis. TEST: [id number] CBC With Different ial/Plate let [id number] Reticuloc yte Count FINAL [facility], [address] [facility] [id number] Akira Champagne i PhD 04/20 Prote in elect ropho resis Total prote in g/dL 6.0 8.5 6.9 FINAL [facility], [address] [facility] [id number] 9 Akira Champagne i PhD 04/20 Prote in elect ropho resis Album in, SPE, g/dL g/dL 2.9 4.4 3.9 FINAL [facility], [address] [facility] [id number] 9 Akira Champagne i PhD 04/20 Prote in elect ropho resis Alpha -1 globu kiana g/dL 0.0 0.4 0.2 FINAL [facility] [address] [facility] [id number] 9 Akira Champagne i PhD 04/20 Prote in elect ropho resis Alpha -2 globu kiaan g/dL 0.4 1.0 0.7 FINAL [facility], [address] [facility] [id number] 9 Akira Champagne i PhD 04/20 Prote in elect ropho resis Beta globu kiana g/dL 0.7 1.3 1.2 [facility]AL [facility] [address] [facility] [id number] 9 Akira Champagne i PhD 04/20 Prote in elect ropho resis Gamma globu kiana g/dL 0.4 1.8 0.8 [facility]AL [facility] [address] [facility] [id number] 9 Akira Champagne i PhD 04/20 Prote in elect ropho resis M-spi ke, SPE, g/dL g/dL Not Observe d FINAL [facility] [address] [facility] [id number] 9 Akira Champagne i PhD 04/20 Prote in elect ropho resis Globu kiana, SPE g/dL 2.2 3.9 3.0 FINAL [facility] [address] [facility] [id number] 9 Akira Champagne i PhD 04/20 Prote in elect ropho resis A/G ratio , SPE 0.7 1.7 1.3 FINAL Georgi Mccall [facility], [address] [facility] [id number] Akira Champagne i PhD 04/20 Prote in elect ropho resis SPEP with graph N Protein electroph oresis scan will follow via computer, mail, orcourier delivery. [facility] [address] [facility] [id number] 9 Akira Champagne i PhD 04/20 Prote in elect ropho resis PDF . [facility] [address] [facility] [id number] 9 Akira Champagne i PhD 04/20 Prote in elect ropho resis [place] light chain , free mg/L 3.3 19.4 17.7 FINAL Georgi Myhand [facility], [address] [facility] [place] [id number] 9 Akira Champagne i PhD 04/20 Prote in elect [facility] tano Lambd a light chain , free mg/L 5.7 26.3 14.0 FINAL [facility], [address] [facility] [place] [id number] 9 Akira Champagne i PhD 04/20 Prote in elect kim resis [place] /Aguirre da Ratio ,S 0.26 1.65 1.26 FINAL Georgi [facility]hand [facility], [address] [facility] [place] [id number] 9 Akira Champagne i PhD 04/20 Gluco se mg/dL 70.0 99.0 89 FINAL [facility], [address] [facility] [id number] 9 Akira Champagne i PhD 04/20 BUN mg/dL 8.0 27.0 16 FINAL [facility], [address] [facility] [id number] 9 Akira Champagne i PhD 04/20 Creat inine mg/dL 0.57 1.0 0.90 FINAL [facility], [address] [facility] [id number] 9 Akira Champagne i PhD 04/20 eGFR mL/min /1.73 70 FINAL [facility], [address] [facility] [id number] 9 Akira Champagne i PhD 04/20 BUN/C reati nine ratio 12.0 28.0 18 FINAL [facility], [address] [facility] [id number] 9 Akira Champagne i PhD 04/20 Sodiu m mmol/L 134.0 144.0 141 FINAL Georgi Myhand [facility], [address] [facility] [id number] 9 Akira Champagne i PhD 04/20 Potas sium mmol/L 3.5 5.2 3.9 FINAL [facility], [address] [facility] [id number] 9 Akira Champagne i PhD 04/20 Chlor tino mmol/L 96.0 106.0 103 FINAL [facility], [address] [facility] [id number] 9 Akira Enriquezut i PhD 04/20 CO2 mmol/L 20.0 29.0 24 FINAL [facility], [address] [facility] [id number] 9 Akira Enriquezut i PhD 04/20 Calci um mg/dL 8.7 10.3 9.4 FINAL [facility], [address] [facility] [id number] 9 Aikra Enriquezut i PhD 04/20 Album in g/dL 3.9 4.9 4.7 FINAL Georgi [facility], [address] [facility] [id number] 9 Akira Champagne i PhD 04/20 Globu kiana g/dL 1.5 4.5 2.2 FINAL Georgi [facility], [address] [facility] [id number] 9 Akira Champagne i PhD 04/20 Bilir ubin, total mg/dL 0.0 1.2 0.3 FINAL Georgi [facility], [address] [facility] [id number] 9 Akira Champagne i PhD 04/20 Alkal ine phosp hatas e IU/L 44.0 121.0 87 FINAL Georgi [facility], [address] [facility] [id number] 9 Akira Champagne i PhD 04/20 AST/S GOT IU/L 0.0 40.0 17 FINAL Georgi [facility], [address] [facility] [id number] 9 Akira Enriquezut sandrita PhD 04/20 ALT/S GPT IU/L 0.0 32.0 8 FINAL Georgi [facility], [address] [facility] [id number] 9 Akira Champagne i PhD 04/20 Iron profi le TIBC ug/dL 250.0 450.0 410 FINAL Georgi [facility], [address] [facility] [id number] 9 Akira Champagne i PhD 04/20 Iron profi le Unbou nd iron capac ity ug/dL 118.0 369.0 291 FINAL Georgi [facility], [address] [facility] [id number] 9 Akira Champagne i PhD 04/20 Iron profi le Iron ug/dL 27.0 139.0 119 FINAL Georgi [facility], [address] [facility] [id number] 9 Akira Champagne i PhD 04/20 Iron profi le Iron, % satur ation % 15.0 55.0 29 FINAL Georgi [facility], [address] [facility] [id number] 9 Akira Champagne i PhD 04/20 TSH uIU/mL 0.45 4.5 9.750 High FINAL Georgi [facility], [address] [place] [address] [id number] 9 Akira Champagne i PhD 04/20 Homoc ystei ne, plasm a umol/L 0.0 17.2 14.5 FINAL Georgi [facility], [address] [place] [address] [id number] 9 Akira Champagne i PhD 04/20 Vitam in B12 pg/mL 232.0 1245.0 507 FINAL Georgi [facility], [address] [facility] [id number] 9 Akira Champagne i PhD 04/30 WBC x10E3/ uL 3.4 10.8 3.5 FINAL Georgi [facility], [address] [facility] [id number] 9 Akira Champagne i PhD 04/30 RBC x10E6/ uL 3.77 5.28 3.87 FINAL Georgi [facility], [address] [facility] [id number] 9 Akira Champagne i PhD 04/30 HGB g/dL 11.1 15.9 10.4 Low FINAL Georgi [facility], [address] [facility] [id number] 9 Akira Champagne i PhD 04/30 HCT % 34.0 46.6 33.0 Low FINAL Georgi Myhand [facility], [address] [facility] [place] [id number] 9 Vincent Ricchiut i PhD 04/30 MCV fL 79.0 97.0 85 FINAL Georgi Myhand [facility], [address] [facility] [place] [id number] 9 Vincent Ricchiut i PhD 04/30 MCH pg 26.6 33.0 26.9 FINAL Georgi [facility]hand [facility], [address] [facility] [place] [id number] 9 Vincent Ricchiut i PhD 04/30 MCHC g/dL 31.5 35.7 31.5 FINAL Georgi Myhand [facility], [address] [facility] [place] [id number] 9 Vincent Ricchiut i PhD 04/30 RDW % 11.7 15.4 16.7 High FINAL Georgi Myhand [facility], [address] [facility] [place] [id number] 9 Vincent Ricchiut i PhD 04/30 PLT x10E3/ uL 150.0 450.0 206 FINAL Georgi Myhand [facility], [address] [facility] [place] [id number] 9 Vincent Ricchiut i PhD 04/30 [place] % % 53 FINAL Georgi Myhand [facility], [address] [facility] [place] [id number] 9 Vincent Ricchiut i PhD 04/30 LY % % 32 FINAL Georgi [facility], [address] [facility] [place] [id number] 9 Vincent Ricchiut i PhD 04/30 MO % % 9 FINAL Georgi Myhand [facility], [address] [facility] [place] [id number] 9 Vincent Ricchiut i PhD 04/30 EO % % 5 FINAL Georgi Myhand [facility], [address] [facility] [place] [id number] 9 Vincent Ricchiut i PhD 04/30 BA % % 1 FINAL Georgi Myhand [facility], [address] [facility] [place] [id number] 9 Vincent Ricchiut i PhD 04/30 [place] # (ANC) x10E3/ uL 1.4 7.0 1.8 FINAL [facility] [address] [facility] [place] [id number] 9 Vincent Ricchiut i PhD 04/30 LY # x10E3/ uL 0.7 3.1 1.1 FINAL [facility] [address] [facility] [id number] 9 Vincent Ricchiut i PhD 04/30 MO # x10E3/ uL 0.1 0.9 0.3 FINAL [facility] [address] [facility] [id number] 9 Vincent Ricchiut i PhD 04/30 EO # x10E3/ uL 0.0 0.4 0.2 FINAL [facility] [address] [facility] [id number] 9 Vincent Ricchiut i PhD 04/30 BA # x10E3/ uL 0.0 0.2 0.0 FINAL Georgi Mccall [facility], [address] [facility] [id number] 9 Vincent Ricchiut i PhD 04/30 IG % % 0 [facility]AL [facility] [address] [facility] [id number] 9 Vincent Ricchiut i PhD 04/30 IG # x10E3/ uL 0.0 0.1 0.0 FINAL Georgi Mccall [facility], [address] [facility] [id number] 9 Vincent Ricchiut i PhD 04/30 PDF Repor t1 See d FINAL Georgi Mccall [facility], [address] [facility] [id number] 9 Vincent Ricchiut i PhD 04/30 Retic ulocy te count % 0.6 2.6 2.0 FINAL [facility], [address] [facility] [id number] 9 Armondent Chandanchiut i PhD Medications Date Name Route Dose Frequency Instructions Start Date End Date Status Ferrous Sulfate Oral active Cholecalciferol Oral active Hydrocodone-Acetamin ophen Oral 7.5 mg-325 mg po tid as needed active Diazepam Oral act christine Levothyroxine Oral active Problems Diagnosis Status Date of Diagnosis Resolution Date Anal cancer, canal Active Hypothyroidism Active Leukopenia Active Advance directive informatio n unavailable (finding) Active Carotid artery disease Active Iron deficiency anemia (disorder) Active Anemia Active Vital Signs Date Type Value 10/28/2022 Pain Scale 0.00 10/28/2022 Heart Beat 89.00 10/28/2022 Respiratory Rate 16.00 10/28/2022 Oxygen Saturation 96.00 10/28/2022 Intravascular Systolic 166 10/28/2022 Intravascular Diastolic 92 10/28/2022 Weight 191.20 10/28/2022 Height 65.00 10/28/2022 BMI 31.82 10/28/2022 Body Temperature 98.10 10/28/2022 BSA 1.94 12/09/2022 BSA 1.90 12/09/2022 BMI 30.19 12/09/2022 Height 65.00 12/09/2022 Weight 181.40 12/09/2022 Pain Scale 0.00 12/09/2022 Intravascular Systolic 144 12/09/2022 Intravascular Diastolic 77 12/09/2022 Oxygen Saturation 98.00 12/09/2022 Heart Beat 63.00 03/07/2023 BSA 1.82 03/07/2023 BMI 27.32 03/07/2023 Height 65.00 03/07/2023 Weight 164.20 03/07/2023 Pain Scale 0.00 03/07/2023 Intravascular Systolic 132 03/07/2023 Intravascular Diastolic 101 03/07/2023 Oxygen Saturation 94.00 03/07/2023 Respiratory Rate 16.00 03/07/2023 Body Temperature 98.60 03/07/2023 Heart Beat 74.00 08/28/2023 Weight 168.80 08/28/2023 Oxygen Saturation 92.00 08/28/2023 Respiratory Rate 16.00 08/28/2023 Body Temperature 98.10 08/28/2023 Height 65.00 08/28/2023 Intravascular Systolic 130 08/28/2023 Intravascular Diastolic 87 08/28/2023 Heart Beat 66.00 08/28/2023 BSA 1.84 08/28/2023 BMI 28.09 08/28/2023 Pain Scale 0.00 03/29/2024 Pain Scale 0.00 03/29/2024 Body Temperature 98.10 03/29/2024 Heart Beat 69.00 03/29/2024 Respiratory Rate 16.00 03/29/2024 Oxygen Saturation 95.00 03/29/2024 Intravascular Systolic 135 03/29/2024 Intravascular Diastolic 66 03/29/2024 Weight 180.60 03/29/2024 Height 65.00 03/29/2024 BMI 30.05 03/29/2024 BSA 1.89 04/20/2024 BMI 29.09 04/20/2024 Height 65.00 04/20/2024 Weight 174.80 04/20/2024 Oxygen Saturation 95.00 04/20/2024 BSA 1.87 04/20/2024 Body Temperature 98.10 04/20/2024 Intravascular Systolic 152 04/20/2024 Intravascular Diastolic 89 04/20/2024 Heart Beat 70.00 04/20/2024 Pain Scale 0.00 04/20/2024 Respiratory Rate 16.00 Notes Section * Clinic Note Patient:??SCOUT MOREL MRN:??[id number] Date:??10/28/2022 :??1955 Attending Physician:??Georgi Mccall Diagnosis * Anal cancer, canal * Carotid artery disease Chief Complaint Follow-up for Anal CA HPI The patient is a 67-year-old female who was 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 She had a history of hemorrhoids since April 2015 that worsened over time. She saw GI was thought to have an anal fissure. She had surgery to repair the fissure and a mass was found. ??A biopsy showed a squamous cell carcinoma the anus. She was staged as an AJCC clinical T1N0M0, Stage I. She began combined modality therapy with radiation and 5- FU/mitomycin on 19 February 2016. She completed 2 cycles of 5-FU/mitomycin-C with radiation. ??Her radiation was completed on 10 April 2016.??She had a complete remission from treatment.??She had a post treatment biopsy of the anal lesion by Dr. Geetha Cagle, of Surgery in [place] which was negative. A restaging CT scan performed in August 2016 was negative for malignancy although there was thickening in the distal rectum/anus.??She had a colonoscopy on 09 October [address] Cagle examined her under anesthesia anddid another biopsy on the same day. The results were negative for malignancy. She had a repeat biopsy of her anal area in July [address] Cagle. The results were negative. She last sawDr. Cagle in Aug [address] Hector (Radiation Oncology) in Sep 2021. Her last CT scan was negative for malignancy. Her last mammogram was 10 Jul 2022 and was resulted as BI-RADS 1.??She had a colonoscopy by Dr. Barreto (GI) in Aug 2021. She is here for follow-up. She reports she is feeling well besides chronic fatigue that is unchanged. She is taking oral iron daily and tolerating it well. She also recently saw GI and has a repeat colonoscopy and EGD scheduled. Her activity level is normal. Overall, she remains without evidence ofrecurrence. She denies fevers, chills, headache, dizziness, double [...] loss, no fever, no chills, no night sweats. Reports fatigue.?? Eyes: No diplopia, no transient or permanent loss of vision, no scotomata.?? ENT/Mouth: No tinnitus, normal hearing, no epistaxis, no hoarseness, no oral ulcers, no gingival bleeding, no sore throat, no postnasal drip, no mouth pain, no sinus pain, no dysphagia.?? Cardiovascular: No chest pain, no palpitations, no syncope, no upper extremity edema, no lower extremity edema, no calf discomfort.?? Respiratory: No Cough, no hemoptysis, no pleurisy, no wheezing.?? Gastrointestinal: No abdominal pain, no nausea, no vomiting, no constipation, no hematochezia, no jaundice, no abnormal cramping, no hematemesis, no diarrhea, no melena, no dyspepsia, no dysphagia.?? Musculoskeletal: No muscle pain, no swollen joints redness, no bone pain, no spine tenderness.?? Skin: No rash, no nodules, no pruritus, no lesions.?? Neurological: No Confusion, no seizures, no syncope, no tremor, no speech change, no headache, no hiccups, no abnormal gait, no weakness, no sensory changes.?? Psychiatric: No depression, no anxiety, concentration normal.?? Endocrine: No polyuria, no polydipsia, no thyroid disease symptoms, no hot flashes.?? Hematologic: No epistaxis, no bleeding, no petechiae, no ecchymosis.?? Lymphatic: No lymphadenopathy, no lymphedema.?? Allergy/Immunologic: No eczema, no frequent mucous membrane infections, no frequent respiratory infections, no recurrent urticaria, no frequent skin infections. ?? Allergies/Adverse Events No known medication allergies ? Medications * Ferrous Sulfate Oral 325 mg (65 mg iron) tablet * Valium (Diazepam Oral) 5 mg tablet * Hydrocodone-Acetaminophen Oral 7.5 mg-325 mg 7.5-325 mg tablet po tid as needed * Vitamin D3 (Cholecalciferol Oral) (1,000 unit) * Synthroid (Levothyroxine Oral) 100 mcg capsule Mental/Functional ECOG Status 1 Symptoms, but ambulatory. Restricted in physically strenuous activity, but ambulatory and able tocarry out work of a light or sedentary nature (e.g., light housework, office work). (Date: 10/28/2022) Vitals Blood pressure: 166/92, Pulse: 89, Temperature: 98.1 F, Respirations: 16, O2 sat: 96%, Pain Scale: 0, Height: 65 in, Weight: 191.2 lb, BSA: 1.94, BMI: 31.82 kg/m2 Physical Exam GEN: Well-developed, well-nourished, well-appearing [...] rebound, no hepatomegaly, no splenomegaly, no masses RECTAL: There are no palpable anal abnormalities LYMPH NODES: There is no cervical, supraclavicular, infraclavicular, axillary or inguinal adenopathy palpable. EXT: No clubbing and cyanosis. There is trace edema of the legs. MUSCULOSKELETAL: Normal inspection, No muscle tenderness. NEURO: Motor is normal, CN II-XII intact SKIN: No lesions. Skin is warm and dry Assessment & Plan Carcinoma of anal canal (disorder) As the patient had??a complete remission, the NCCN guideline recommendation was a digital rectal exam and inguinal palpation for adenopathy every 3-6 months for 5 years.??Anoscopy was recommended every 6-12 months for 3 years.?? A CT scan of the chest, abdomen and pelvis was recommended annually for 3 years for T3/T4 lesions or for positive inguinal lymph nodes. Her last CT scan was in Aug 2019 and this was negative. She is more than 6??years post diagnosis now. See above. Her last colonoscopy was with Dr. Barreto August 2021.??I will check her CBC and CMP today. She will follow up in 12??months.??She understands and agrees with our plan. Vascular Disease At her request, I referred her to Cardiology as she has a history of vascular disease. She is now being followed by cardiology. Iron Deficiency Anemia The patient's routine CBC ??Aug 2022 revealed a hemoglobin of 8.8. Her prior hemoglobin was 12.30 October 2021. We repeated the hemoglobin one week later and it had improved to 10.2. A screening evaluation with her repeat CBC including a reticulocyte count, haptoglobin level, ferritin, iron studies,vitamin B12 level, and TSH. Her screening evaluation was remarkable for iron deficiency with her ferritin low (9), elevated TIBC and UBIC, and an iron saturation of 5%. To complete her screening evaluation, I ordered??a urinalysis which was negative for hematuria.??She is taking oral iron daily andshe is tolerating this well.??I will repeat her CBC today. I also recommended that she follow-up with GI to discuss a work-up for possible blood loss. She is scheduled for a colonoscopy and EGD 17 November 2022. She will contact me with any evidence of bleeding.?? Plan: CBC and CMP ordered CBC, CMP, UA reviewed EGD and CLN planned 17 November 2022 Continue oral iron daily Follow-up [address] Maya Problem List * Anal cancer, canal * Carotid artery disease * Anemia * Hypothyroidism * Iron deficiency anemia (disorder) Today's Regimen ? Laboratory Lab Results 10/07/2022 09/17/2022 09/11/2022 11/05/2021 04/05/2005/17/2020 CBC WBC x 10^3/uL 4.0 4.7 4.3 4.4 4.9 4.3 RBC x 10^6/uL 4.41 4.11 3.42 (L) 4.43 4.09 4.21 HGB g/dL 11.2 10.2 (L) 8.8 (L) 12.8 12.3 12.2 HCT % 35.1 32.3 (L) 27.2 (L) 37.8 35.1 35.1 MCV fL 80 79 80 85 86 83 MCH pg 25.4 (L) 24.8 (L) 25.7 (L) 28.9 30.1 29.0 MCHC g/dL 31.9 31.6 32.4 33.9 35.0 34.8 RDW % 17.1 (H) 13.5 13.3 12.9 13.0 13.0 PLT x 10^3/uL 270 330 270 211 205 224 [place] % 50 50 60 45 49 46 LY % 33 34 26 37 36 37 MO % 10 10 9 11 8 11 EO % 5 5 4 5 6 4 BA % 1 1 1 1 1 1 IG % 1 0 0 1 0 1 [place] # (ANC) x 10^3/uL 2.0 2.4 2.6 2.0 2.4 2.0 LY # x 10^3/uL 1.3 1.6 1.1 1.6 1.8 1.6 MO # x 10^3/uL 0.4 0.4 0.4 0.5 0.4 0.5 EO # x 10^3/uL 0.2 0.2 0.2 0.2 0.3 0.2 BA # x 10^3/uL 0.0 0.0 0.0 0.1 0.0 0.0 IG # x 10^3/uL 0.0 0.0 0.0 0.0 0.0 0.0 New Orders ?* 10/28/2022, CBC w/ auto diff, Perform Date: 10/28/2022, Associated problem(s): Anal cancer, canal *(C21.1); Carotid artery disease * (I70.8) * 10/28/2022, CMP, Perform Date: 10/28/2022, Associated problem(s): Anal cancer, canal * (C21.1); Carotid artery disease * (I70.8) ? * 10/28/2022, RTIzzy CARD, Perform Date: 6 [...] canal * (C21.1); Anemia (D64.9) * 09/11/2022, RTIzzy CARD, Perform Date: 12 Months, Associated problem(s): Anal cancer, canal * (C21.1); Carotid artery disease * (I70.8) * 11/05/2021, Cardiology consult, Perform Date: Prior to Next Visit, Associated problem(s): Anal cancer, canal * (C21.1); Carotid artery disease * (I70.8) * 11/05/2021, RTIzzy CARD, Perform Date: 12 Months, Associated problem(s): Anal cancer, canal * (C21.1) * 04/05/2021, RTIzzy CARD, Perform Date: 12 Months, Associated problem(s): Anal cancer, canal * (C21.1) * 05/17/2020, GI consult, Instructions: Dr. Barreto, GI, [place] for intermittent nausea and abdominal pain, Perform Date: Prior to Next Visit, Associated problem(s): Anal cancer, canal * (C21.1) * 05/17/2020, RTC , Perform Date: 4 Months, Associated problem(s): Anal cancer, canal * (C21.1) ? Georgi Mccall Send copy of note to:? [facility], Joon Maya Electronically signed by Laura MARCH 10/28/2022 15:37 EST * Nurse Note for: 20-APR-24 [facility] Nurse Note Print Location: Unknown Date/Time Printed: 02/22/2025 09:21 ([facility] Patient: SCOUT MOREL Sex: Female : 1955 MRN: [id number] Date of Service: 04/20/2024 Allergies : No Known Allergies Vital Signs : Time: 15:23. Pulse: 70 (/min) . Blood pressure: 152/89 (mm Hg). Entered by Kae William 04/20/2024 15:25 Time: 15:23. Weight: 174.8 (lb) . Height: 65 (in) . BMI: 29.09 (kg/m2) . BSA: 1.87 (m2) . Temperature: 98.1 (F) . Respirations: 16 (/min) . Pain Scale: 0. O2 Saturation: 95 (%) . Entered by Kae William 04/20/2024 15:24 Time: 03:00. Pain Scale: 0. Entered by Kae William 04/20/2024 15:23 Patient Assessment : Negative results Assessment : Labs Verified: No, Alert, oriented with appropriate behavior, Gait Changes. Denies Neuropathy , Pain -0-No pain, Fatigue , Anxiety/Depression , Fever, Chills or Night Sweats ,Signs of Infection , Skin Changes , Dizziness , Headaches , Nausea , Breathing Changes , Cough , Mouth Sores/Stomatitis/Mucositis , Changes in Appetite , Vomiting , Diarrhea , Constipation , Urinary Changes , Bleeding . Entered By Kae William on 15:23 * Nurse Note for: 29-MAR-24 [facility] Nurse Note Print Location: Unknown Date/Time Printed: 02/22/2025 09:21 ([facility]) Patient: SCOUT MOREL Sex: Female : 1955 MRN: [id number] Date of Service: 03/29/2024 Allergies : No Known Allergies Vital Signs : Time: 12:58. Weight: 180.6 (lb) . Height: 65 (in) . BMI: 30.05 (kg/m2) . BSA: 1.89 (m2) . Temperature: 98.1 (F) . Pulse: 69 (/min) . Respirations: 16 (/min) . Blood pressure: 135/66 (mm Hg). Pain Scale: 0. O2 Saturation: 95 (%) . Entered by Kae William 03/29/2024 13:01 Time: 03:00. Pain Scale: 0. Entered by Kae William 03/29/2024 12:58 Patient Assessment : Negative results Assessment : Labs Verified: No, Alert, oriented with appropriate behavior, Gait Changes. Denies Neuropathy , Pain -0-No pain, Fatigue , Anxiety/Depression , Fever, Chills or Night Sweats ,Signs of Infection , Skin Changes , Dizziness , Headaches , Nausea , Breathing Changes , Cough , Mouth Sores/Stomatitis/Mucositis , Changes in Appetite , Vomiting , Diarrhea , Constipation , Urinary Changes , Bleeding . Entered By Kae William on 12:58 * Nurse Note for: 28-AUG-23 [facility] Nurse Note Print Location: Unknown Date/Time Printed: 02/22/2025 09:21 ([facility]) Patient: SCOUT MOREL Sex: Female : 1955 MRN: [id number] Date of Service: 08/28/2023 Allergies : No Known Allergies Vital Signs : Time: 14:05. Pulse: 66 (/min) . Blood pressure: 130/87 (mm Hg). Entered by Nadia Nation 4:11 Time: 14:05. Weight: 168.8 (lb) . Height: 65 (in) . BMI: 28.09 (kg/m2) . BSA: 1.84 (m2) . Temperature: 98.1 (F) . Respirations: 16 (/min) . Pain Scale: 0. O2 Saturation: 92 (%) . Entered by Nadia Nation 08/28/2023 14:10 Time: 03:00. Pain Scale: 0. Entered by Nadia Nation 08/28/2023 14:09 Patient Assessment : Negative results Assessment : Labs Verified: No, Alert, oriented with appropriate behavior, Gait Changes. Denies Neuropathy , Pain -0-No pain, Fatigue , Anxiety/Depression , Fever, Chills or Night Sweats ,Signs of Infection , Skin Changes , Dizziness , Headaches , Nausea , Breathing Changes , Cough , Mouth Sores/Stomatitis/Mucositis , Changes in Appetite , Vomiting , Diarrhea , Constipation , Urinary Changes , Bleeding . Entered By Nadia Nation on 14:09 * Nurse Note for: 07-MAR-23 [facility] Nurse Note Print Location: Unknown Date/Time Printed: 02/22/2025 09:21 ([facility]) Patient: SCOUT MOREL Sex: Female : 1955 MRN: [id number] Date of Service: 03/07/2023 Allergies : No Known Allergies Vital Signs : Time: 08:23. Weight: 164.2 (lb) . Height: 65 (in) . BMI: 27.32 (kg/m2) . BSA: 1.82 (m2) . Temperature: 98.6 (F) . Pulse: 74 (/min) . Respirations: 16 (/min) . Blood pressure: 132/101 (mm Hg). Pain Scale: 0. O2 Saturation: 94 (%) . Entered by Nadia Nation 03/07/2023 08:23 Patient Assessment : Negative results Assessment : Labs Verified: No, Alert, oriented with appropriate behavior, Gait Changes. Denies Neuropathy , Pain -0-No pain, Fatigue , Anxiety/Depression , Fever, Chills or Night Sweats ,Signs of Infection , Skin Changes , Dizziness , Headaches , Nausea , Breathing Changes , Cough , Mouth Sores/Stomatitis/Mucositis , Changes in Appetite , Vomiting , Diarrhea , Constipation , Urinary Changes , Bleeding . Entered By Nadia Nation on 08:24 * Nurse Note for: 28-OCT-22 [facility] Nurse Note Print Location: Unknown Date/Time Printed: 02/22/2025 09:21 ([facility]) Patient: SCOUT MOREL Sex: Female : 1955 MRN: [id number] Date of Service: 10/28/2022 Allergies : No Known Allergies Vital Signs : Time: 14:25. Weight: 191.2 (lb) . Height: 65 (in) . BMI: 31.82 (kg/m2) . BSA: 1.94 (m2) . Temperature: 98.1 (F) . Pulse: 89 (/min) . Respirations: 16 (/min) . Blood pressure: 166/92 (mm Hg). Pain Scale: 0. O2 Saturation: 96 (%) . Entered by Kae William 10/28/2022 14:28 Time: 03:00. Pain Scale: 0. Entered by Kae William 10/28/2022 14:26 Patient Assessment : Negative results Assessment : Labs Verified: No, Alert, oriented with appropriate behavior, Gait Changes. Denies Neuropathy , Pain -0-No pain, Fatigue , Anxiety/Depression , Fever, Chills or Night Sweats ,Signs of Infection , Skin Changes , Dizziness , Headaches , Nausea , Breathing Changes , Cough , Mouth Sores/Stomatitis/Mucositis , Changes in Appetite , Vomiting , Diarrhea , Constipation , Urinary Changes , Bleeding . Entered By Kae William on 14:26
--- OUTSIDE RECORDS SUMMARY | 2025-02-22 09:22 | XMS_ITS | Data Portability ---
Author Organization [place] - [facility] [place] [facility] [place] LUTHER ADMIN Address [address] [place] [id number] Care Team Providers Care Supervisor Plastering Name Role Phone NORI MAYA Referring Provider [phone] Assessment Encounter Date Assessment Date Assessment LastModified by Organization Details LastModified Time 10/03/2022 10/03/2022 67-year-old female with history of anal cancer diagnosed in 2016 s/p radiation and chemotherapy treatment with remission achieved. She presents today for evaluation of recently identified anemia by her oncologist. 1) Anemia: Will request labs from Dr. Ramirez office. EGD and colonoscopy scheduled for further evaluation. She denies evidence of apparent GI bleeding currently. Continue oral iron supplement. 2) History of anal cancer: Rectal EUS performed 05/30/2021 showed no evidence of recurrence. 3) Dysphagia: EGD scheduled. She has a history of remote dilation with improvement. Will start Omeprazole for treatment of frequent heartburn. [email or web address] Not available 10/03/2022 13:01:25 12/30/2022 12/30/2022 67-year-old female with history of anal cancer diagnosed in 2016 s/p radiation and chemotherapy treatment with remission achieved. She has recently identified anemia by her oncologist. EGD and colonoscopy on 11/07/22 showed no source of blood loss. 1) Anemia: No source found on EGD and colonoscopy. PillCam was recommended, but the patient declines. She reports understanding that small bowel pathology cannot be excluded by declining the procedure. -Continue iron supplement. She will continue to follow with Dr. Mccall. 2) History of anal cancer: Rectal EUS performed 05/30/2021 showed no evidence of recurrence. She has subsequent anal stenosis following radiation therapy. She has been told previously that this is not amendable to surgical intervention. Treatment of constipation per below 3) Dysphagia: No lesion identified within the esophagus. She declines esophagram. 4) Constipation: Confounded by use of oral iron, opioids, and anal stenosis due to prior radiation treatment. -She was provided samples of Linzess 145 mcg p.o. once daily. If helpful, she can call back for Rx. -Continue Miralax as needed. She will follow-up as needed. If she elects to continue Linzess, she will need follow-up to maintain her prescriptions. [email or web address] Not available 12/30/2022 12:56:48 Plan of Treatment Reminders Order Date Submit Date Provider Last Modified By Organization Details Last Modified Time Details Appointments None recorded. Lab None recorded. Referral None recorded. Procedures None recorded. Surgeries None recorded. Imaging XR, [facility]agram [facility]24 [facility], [facility] [place], [address], 5 08:53:00 Medication Orders omeprazole 20 mg capsule,de layed release 2022 023 [facility], [address] [place] [address], [id number], 5 08:00:43 Patient TargetsNo targets recorded. Patient Instructions Encounter Date Encounter Id Patient Instructions Last Modified By Organization Details Last Modified Time 12/30/2022 [id number] DATE OF OPERATIO N: 11/07/2022 SURGEON: Joon Barreto MD PROCEDURE PERFORMED: EGD and colonoscopy. PRIMARY CARE PROVIDERS: Miles Maya. INDICATION FOR PROCEDURE: The patient is a very pleasant 67-year-old female with recently identified iron deficiency anemia. She also has complaints of dysphagia. ASA SCORE: 3. ANESTHESIA: MAC anesthesia provided by the Anesthesia Department. DESCRIPTION OF OPERATION: EGD: After informed consent, the patient was positioned in the left lateral decubitus position. A standard gastroscope was advanced from mouth to the second portion of the duodenum without difficulty. The patient's toleration of scope passage was excellent. Views were excellent. The scope was withdrawn. The mucosa was carefully examined. Within the esophagus, the Z-line was identified at 32 cm from the incisors and was normal and symmetric in appearance. No obstructing lesions were noted throughout the esophagus. The stomach appeared normal. Biopsies were taken for evaluation for H pylori and atrophic gastritis. Retroflexion was performed in the fundus and showed a small sliding hiatal hernia. The first and second portions of the duodenum appeared normal. Biopsies were performed for evaluation for celiac sprue. Complications: None. Blood loss: Minimal. Conclusion: Normal upper endoscopy. Biopsies performed as outlined above. Recommendations: The patient's biopsy specimen will be reviewed, and she will follow up in the clinic. Colonoscopy: The patient was repositioned for colonoscopy. A digital rectal exam was performed and showed anal stenosis and perianal scarring. A pediatric colonoscope was advanced from the anus to the cecum without difficulty. The patient's toleration of scope passage was excellent. The quality of preparation was good. Views were good. The scope was withdrawn, and the mucosa was carefully examined. The entire colon appeared normal. Retroflexion was performed in the rectum and was normal. Complications: None. Blood loss: None. Conclusion: Normal colonoscopy with evidence of perianal scarring an anal stenosis. Recommendations: The patient will be referred for barium esophagram and small bowel follow-through with subsequent capsule endoscopy. PATH: Gastric biopsies showed mild chronic gastritis. Duodenal biopsies were unremarkable. [email or web address] Not available 12/30/2022 12:29:44 02/08/2025 [id number] Patient has no lesions or masses of the upper aerodigestive tract. her vocal cords are moving symmetrically bilaterally there are no masses of the vallecula or the piriform sinuses. Posterior pharyngeal wall is within normal limits. [email or web address] Not available 02/08/2025 15:23:45 Reason for Referral None Reported. Results Created Date Observation Date Name Description Value Unit Range Abnormal Flag Note LastModifiedBy Organization Detail LastModifiedTime Result Notes None recorded. Problems Name Problem SNOMED Code Status Onset Date Resolution Date Notes Provider Name and Address Organization Details Recorded Time Hemorrhoids 04983914 Active 2022 OSWALDO Vitale - [place] [facility] [place] 3 11:58:15 Anal fissure 73102783 Active 2022 OSWAL[facility] - [place] [facility] [place] 3 11:58:23 Hematochezia 487459798 Active 2022 Nicky Bryant null, [place] - [facility] - [place] [facility] [place] 3 11:58:35 Malignant tumor of anus 645171541 Active 2022 Nicky [place] null, [place] - [facility] [place] 3 11:58:53 Dysuria 04716889 Active 2022 Nicky Bryant null, [place] [facility] - [facility] & [facility] 3 11:58:59 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 579028587 Active 2022 Nicky Bryant null, [place] - [facility] [place] 3 11:59:16 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 2022 Nicky Bryant null, [place] - [facility] - [facility] & [place] 3 12:00:08 Diarrhea 54665950 Active 2022 Nicky Bryant null, [place] [facility] - [facility] & [place] 3 12:00:13 Anemia 597309325 Active [address] [place], [address] , [place] - [facility] [place] [facility] [place] 3 12:50:09 Heartburn 19730825 Active 2022 Benjamin Strickland PA-C [address] [place], [address] , [place] [facility] [place] [facility] [place] 3 12:57:41 Esophageal dysphagia 38075236 Active 2022 Benjamin Strickland PA-C [address], [address] , [place] [facility] [place] [facility] [place] 3 12:57:48 Dysphagia 64139229 Active [address], [place], [address] , [place] [facility] [place] [facility] [place] 3 18:42:31 Iron deficiency anemia 12656740 Active 2022 Benjamin Strickland PA-C [address] , [facility] [address] , [facility] & [place] 3 18:42:37 Stenosis of anal canal 83757034 Active 2022 Benjamin Strickland PA-C [address], [facility] [address] [facility] & [place] 3 12:31:48 Problem Notes None recorded. Procedures Surgical History Date Name Laterality Status Provider Name and Address Organization Details Recorded Time 025 Fiberoptic Laryngoscopy completed Jazmin Chavez MD [address] , [place], [address], [facility] & [place] 02/08/2025 15:22:20 025 endoscopic gastrointestinal tract dilation completed [facility] & [place] 02/07/2025 08:25:41 013 dilation of esophagus completed [facility] OSWALDO [facility] & [place] 02/07/2025 08:23:09 010 arthroscopy of knee with medial and lateral meniscus repair completed [facility] & [place] 02/07/2025 08:22:04 008 Thyroid Surgery completed [facility] & [place] 02/07/2025 08:20:50 Imaging Results None recorded. Procedure Notes None recorded. Medical Equipment None Reported. Allergies Allergen ID Allergen Name Allergen Category Reaction Reaction Severity Criticality Documentation Date Start Date Code Code System Note Provider Name and Address Organization Details Recorded Time 69785 oxycodone medicatio n Not available Not available Not available 10/03/2022 7804 RxNorm OSWALDO Vitale [facility] & [place] 3 12:04:19 Medications Name Sig Start Date [...] Not Available Not Available Vitals Date Recorded Heart rate Systolic blood pressure Diastolic blood pressure Provider Name and Address Organization Details Last Updated DateTime 10/03/2022 104 /min 132 mm[Hg] 81 mm[Hg] [facility] [place] 10/03/2022 11:57:30 Date Recorded Body weight Heart rate Systolic blood pressure Diastolic blood pressure Provider Name and Address Organization Details Last Updated DateTime 12/30/2022 02064.14 g 86 /min 115 mm[Hg] 74 mm[Hg] Nicky UGARTE [facility] & [place] 12/30/2022 12:02:25 Date Recorded Body weight Body temperature Provider Lalo oriana and Address Organization Details Last Updated DateTime 02/08/2025 51127.88 g 97.8 [degF] Anabellalo Foote [facility] & [place] 02/08/2025 14:04:17 Social History None recorded. Functional Status None recorded. Mental Status None recorded. Family History Nothing Reported. Medical History Condition Response Depression Y Anxiety Disorder Y Arthritis Y Cancer Y Allergies/Hayfever Y Thyroid Problems Y Hyperlipidemia Y Gynecological HistoryNo gynecological history recorded. Obstetrics History GPAL:G 0 P 0 0 0 0 Immunizations Vaccine Type Date Status Note Provider Nam e and Address Organization Details Recorded Time Influenza, split virus, quadrivalent, preservative 7 completed Nicky Bryant null, [place] - [facility] & [place] 10/03/2022 11:57:06 Influenza, split virus, quadrivalent, preservative 1 completed Nicky Braynt null, [place] [facility] & [place] 10/03/2022 11:57:06 Influenza, split virus, quadrivalent, preservative 9 completed Nicky [place] [facility] & [place] 10/03/2022 11:57:06 Influenza, split virus, quadrivalent, preservative 0 completed [place] [facility] & [place] 10/03/2022 11:57:06 Influenza, split virus, quadrivalent, preservative 5 completed Nicky Bryant null, [facility] & [place] 10/03/2022 11:57:06 Influenza, split virus, quadrivalent, preservative 6 completed Nicky [place] null, [place] [facility] & [place] 10/03/2022 11:57:06 COVID-19, mRNA, LNP-S, PF, 100 mcg/0.5mL dose or 50 mcg/0.25mL dose 1 completed Nick[place] null[place] [facility] & [place] 10/03/2022 11:57:06 COVID-19, mRNA, LNP-S, PF, 100 mcg/0.5mL dose or 50 mcg/0.25mL dose 1 completed Nicky [place] null, [place] [facility] & [place] 10/03/2022 11:57:06 pneumococcal polysaccharide PPV23 9 completed [place] [facility] & [place] 10/03/2022 11:57:06 Tdap 9 completed Nicky Manny null[place] [facility] & [place] 10/03/2022 11:57:06 Pneumococcal conjugate PCV 13 2 completed Nick[place] [facility] & [place] 10/03/2022 11:57:06 Influenza, recombinant, trivalent, PF 8 completed Nicky Manny [place] - [facility] - [place] [facility] [place] 10/03/2022 11:57:06 Past Encounters Encounter ID Performer Location Encounter Start Date Encounter Closed Date Diagnosis/Indication Diagnosis SNOMED-CT Code Diagnosis ICD10 Code Diagnosis Note [id number] Benjamin Strickland PA-C [facility] [address] [address] 10/03/2022 11:45:16 10/03/2022 13:01:47 Anemia 483102799 D64.9 Malignant tumor of anus 605450818 C21.0 Heartburn 45526969 R12 Esophageal dysphagia 408 55018 R13.19 [id number] Benjamin Strickland PA-C [facility] [address] [address] 12/30/2022 11:50:25 12/30/2022 12:24:29 Heartburn 31113843 R12 Anemia 825555118 D64.9 Dysphagia 24283263 R13.1 0 Malignant tumor of anus 018647779 C21.0 Esophageal dysphagia 408 87602 R13.19 Stenosis o f anal canal 11141767 K62.4 [id number] Jazmin Chavez MD [facility] [address] [place] [address] 02/08/2025 13:59:11 02/08/2025 14:52:23 Dysphagia 29832102 R13.14 Dietary finding 20922804 Z71.3 Health Concerns Section Related Observation LastModified by Organization Detai ls LastModified Time None Recorded Concern Status LastModified by Organization Details LastModified Time None Recorded Advance Directives Directive None Recorded Payers Insurance Date Sequence Insurance Name Policy Number Policy Perkins Covered Member ID Perkins Member ID Guarantor Name 02/08/2025 1 [employer] (MEDICARE REPLACEMENT/ ADVANTAGE - PPO) Abi Perez [id number] Abi Perez 02/08/2025 2 [place] Abi Perez [id number] Abi Perez Notes Date Note Type Note Provider Name and Address Organization Details Recorded Time 10/03/2022 text/html Ariana 67-year-old female with history of squamous cell carcinoma of the anus diagnosed in 2015 who returns to the clinic today for evaluation of recently identified anemia. She reports having a recent visit with Dr. Mccall and having labs drawn there that showed anemia. Those results are not currently available. She is taking an oral iron supplement. 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 Additionally, she reports dysphagia to solids. She has a history of remote EGD with dilation in the past that improved dysphagia. 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 Rectal EUS was performed on 05/30/2021 with no recurrence of anal cancer. She is having frequent heartburn. She denies frequent use of NSAIDS. Benjamin Strickland PA-C [address] [facility], [place], [address], [facility] [place] [facility] [place] 10/03/2022 13:01:54 12/30/2022 text/html PREVIOUS (10/03/22 ): Ariana 67-year-old female with history of squamous cell carcinoma of the anus diagnosed in 2015 who returns to the clinic today for evaluation of recently identified anemia. She reports having a recent visit with Dr. Mccall and having labs drawn there that showed anemia. Those results are not currently available. She is taking an oral iron supplement. 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 Additionally, she reports dysphagia to solids. She has a history of remote EGD with dilation in the past that improved dysphagia. 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 Rectal EUS was performed on 05/30/2021 with no recurrence of anal cancer. She is having frequent heartburn. She denies frequent use of NSAIDS. CURRENT: Ms. Perez returns to the office today for follow-up regarding anemia. She underwent EGD and colonoscopy on 11/07 with no source of blood loss identified. She was noted to have perianal scarring and anal stenosis secondary to prior radiation therapy. Currently, she reports feeling well overall. She is having issues with chronic constipation. She is going up 2 weeks between BMs. She does use miralax as needed. Benjamin Strickland PA-C [address], [place], [address], [facility] & [place] 12/30/2022 12:56:59 02/08/2025 text/html 02/08/25 yea r old female in office for dysphagia. Patient [...] a benign thyroid condition. Jazmin Chavez MD [address], [place], [address], [facility] & [place] 02/08/2025 15:24:15 OBGyn Episode No OBEpisode recorded.
--- OUTSIDE RECORDS SUMMARY | 2025-02-22 09:22 | XMS_ITS ---
Author Name Interface, [id number] lity Address [address] [facility] [address] [place] [address] Oncology an d Hematology Address [address] [place], [place] [address] Allergies and Adverse Reactions Plan Reason for Visit Encounters Diagnostic Results Medications Problems Vital Signs Notes Section
--- OUTSIDE RECORDS SUMMARY | 2025-02-22 09:22 | XMS_ITS | Encounter Summary ---
Author Organization [facility] Address [address] [place] [address] Care Team Providers Care Flask Pusher Name Role Phone Pcp, No Primary Care Provider Unavailabl e Encounter Details Date Type Department Care Team (Late st Contact Info) Description 08/27/2021 Lab Requisition [facility] [address] [place] [address] Melchor Friedman MD [address] [facility] [address] [place] [address] Other specified diseases of anus and rectum Social History Tobacco Use Types Packs/Day Years Used Date Smoking Tobacco: Never Assessed Comments No Sex and Gender Information Value Date Recorded Sex Assigned at Not on file Legal Sex Female 6:40 PM EDT Gender Identity Not on file Sexual Orientation Not on file documented as of this encounter Plan of Treatment Not on file documented as of this encounter Procedures Procedure Name Priority Date/Time Associated Diagnosis Comments SURGICAL PATHOLOGY CONSULT Routine 08/27/2021 9:26 AM EST Other specified diseases of anus and rectum documented in this encounter Results * Surgical Pathology Consult (08/27/2021 9:26 AM EST) Case Report Sugical Pathology Consult Case: [id number] Authorizing Provider: Melchor Friedman MD Collected: 08/27/2021925 Ordering Location: [facility] Received: 08/27/2021925 Pathologist: Areli Rucker MD Specimen: Anal, [id number] 08/27/2021 11:30 AM EST [facility] Final Diagnosis ANAL MASS, BIOPSY (OUTSIDE SLIDES [id number], 01/17/2016): - FRAGMENTS OF INVASIVE SQUAMOUS CELL CARCINOMA. - SURFACE INVOLVEMENT BY SQUAMOUS CELL CARCINOMA IN SITU (HIGH-GRADE SQUAMOUS INTRAEPITHELIAL LESION). 08/27/2021 11:30 AM EST [facility] at 1130 EST Clinical Information K62.89 - Other specified diseases of anus and rectum [ICD-10-CM] 08/27/2021 11:30 AM EST [facility] Gross Description A. [id number] Received along with a corresponding pathology report from [facility] are 6 slide(s) labeled outside case: [id number] collected on 01/17/2016. 08/27/2021 11:30 AM EST [facility] Tissue Anal region structure / Unknown 08/27/2021 9:26 AM EST 08/27/2021 9:26 AM EST Melchor Friedman MD LAB PATHOLOGY ORDERABLES Final Result [facility] [address] [place] [address] documented in this encounter Visit Diagnoses Diagnosis Other specified diseases of anus and rectum documented in this encounter Care Teams Flask Pusher Relationship Specialty Start Date End Date Pcp, No [address] [place] [address] PCP - General 06/27/21 documented as of this encounter
--- OUTSIDE RECORDS SUMMARY | 2025-02-22 09:22 | XMS_ITS ---
Author Organization Unknown Results OrderDate OrderTestName ResultName ResultDate Value Units Range AbnormalFlag ResultStatus ObservationNotes TestCode ResultCode DateRecorded AccessionNumber DiagnosticSectionCode DiagnosticSectionName Sequence Interpretation 06/17/2024 00:00:00 P-TSH TSH 5181-72-13J49:00:00 8.47 mU/L 0.43- 5.25 - mU/L Bettie Hawk 06/21/2024 5:50:11 PM > See phone encounter P-TSH 06/17/2024 00:00:001 00:00:00P-Lipid PanelTriglycerides 9502-30-89R15:00:38268nk/dL<150 - mg/dLBettie Nixon 06/21/2024 5:50:11 PM > See phone encounter Coding P-Lipid Panel 06/17/2024 00:00:001 00:00:00P-Lipid PanelNon-HDL Cholesterol 7378-99-91Z89:00:43276qq/dL<130 - mg/dLBettie Dueñas 06/21/2024 5:50:11 PM > See phone encounter Coding P-Lipid Panel 06/17/2024 00:00:001 00:00:00P-Lipid PanelLDL/HDL Ratio 7191-28-76W39:00:002.2Ratio<3.3 - RatioBettie Nixon 06/21/2024 5:50:11 PM > See phone encounter Coding P-Lipid Panel 06/17/2024 00:00:001 00:00:00P-Lipid PanelLDL Cholesterol (Calculation) 8392-56-27I40:00:78583qx/dL<130 - mg/dLBettie Dueñas 06/21/2024 5:50:11 PM > See phone encounter Coding P-Lipid Panel 06/17/2024 00:00:001 00:00:00P-Lipid PanelHDL Cholesterol 5014-65-29X07:00:0064mg/dL>39 - mg/dLBettie Nixon 06/21/2024 5:50:11 PM > See phone encounter Coding P-Lipid Panel 06/17/2024 00:00:001 00:00:00P-Lipid PanelCholesterol 7859-36-15X15:00:48188pr/dL<200 - mg/dLBettie Dueñas 06/21/2024 5:50:11 PM > See phone encounter Coding P-Lipid Panel 06/17/2024 00:00:001 00:00:00P-Lipid PanelCholesterol / HDL Ratio 2174-44-60Z94:00:003.71Xusra4.00-4.44 - RatioBettie Nixon 06/21/2024 5:50:11 PM > See phone encounter Coding P-Lipid Panel 06/17/2024 00:00:001 00:00:00P-Comprehensive Metabolic Panel (CMP)eGFR by Ipaubspvqp0385-84-93X01:00:0059mL/min/1.73m2>59 - mL/min/1.14d9GMwoqtxddBettie Carranza 06/21/2024 5:50:11 PM > See phone encounter Coding P-Comprehensive Metabolic Pa donavon (CMP) 06/17/2024 00:00:001 00:00:00P-Comprehensive Metabolic Panel (CMP) Eiuswkg4869-63-49E83:00:006.4g/dL6.0-8.3 - g/dLBettie Nixon 06/21/2024 5:50:11 PM > See phone encounter Coding P-Comprehensive Metabolic Pa donavon (CMP) 06/17/2024 00:00:001 00:00:00P-Comprehensive Metabolic Panel (CMP) Vuyjry8771-79-82M86:00:31037ttdv/A656-449 - mmol/LReviewedNorfleetBettie 06/21/2024 5:50:11 PM > See phone encounter Coding P-Comprehensive Metabolic Pa donavon (CMP) 06/17/2024 00:00:001 00:00:00P-Comprehensive Metabolic Panel (CMP) Wsxuxjpng0082-05-61A74:00:003.6mmol/L3.5-5.3 - mmol/LReviewedNorfleeteBttie 06/21/2024 5:50:11 PM > See phone encounter Coding P-Comprehensive Metabolic Pa donavon (CMP) 06/17/2024 00:00:001 00:00:00P-Comprehensive Metabolic Panel (CMP) Ejpcpjx8063-27-18U80:00:0078mg/dL65-99 - mg/dLReBettie Yuan 06/21/2024 5:50:11 PM > See phone encounter Coding P-Comprehensive Metabolic Pa donavon (CMP) 06/17/2024 00:00:001 00:00:00P-Comprehensive Metabolic Panel (CMP) Henjwsvzih1523-70-02Y30:00:001.03mg/dL0.50-1.00 - mg/dLHRevGerberorfleBettie castillo 06/21/2024 5:50:11 PM > See phone encounter Coding P-Comprehensive Metabolic Pa donavon (CMP) 06/17/2024 00:00:001 00:00:00P-Comprehensive Metabolic Panel (CMP)CO2 8520-83-62Z77:00:0028mmol/L22-32 - mmol/LReviewedNorfleetBettie 06/21/2024 5:50:11 PM > See phone encounter Coding P-Comprehensive Metabolic Pa donavon (CMP) 06/17/2024 00:00:001 00:00:00P-Comprehensive Metabolic Panel (CMP) Wleczlmj4590-62-91Q68:00:30886daso/L97-108 - mmol/LReviewedNorfleBettie castillo Miles 06/21/2024 5:50:11 PM > See phone encounter Coding P-Comprehensive Metabolic Pa donavon (CMP) 06/17/2024 00:00:001 00:00:00P-Comprehensive Metabolic Panel (CMP) Amkkejm4544-54-21F49:00:009.3mg/dL8.6-10.4 - mg/dLBettie Nixon 06/21/2024 5:50:11 PM > See phone encounter Coding P-Comprehensive Metabolic Pa donavon (CMP) 06/17/2024 00:00:001 00:00:00P-Comprehensive Metabolic Panel (CMP)BUN 8239-28-85S24:00:0010mg/dL8-23 - mg/dLBettie Nixon 06/21/2024 5:50:11 PM > See phone encounter Coding P-Comprehensive Metabolic Pa donavon (CMP) 06/17/2024 00:00:001 00:00:00P-Comprehensive Metabolic Panel (CMP) Bilirubin, Apglq9314-24-54I16:00:000.4mg/dL<0.2-1.2 - mg/dLBettie Nixon 06/21/2024 5:50:11 PM > See phone encounter Coding P-Comprehensive Metabolic Pa donavon (CMP) 06/17/2024 00:00: 00:00:00P-Comprehensive Metabolic Panel (CMP)AST (SGOT)6660-49-06J97:00:0020IU/L<5-40 - IU/LRevievarundNorfBettie christianson 06/21/2024 5:50:11 PM > See phone encounter Coding P-Comprehensive Metabolic Pa donavon (CMP) 06/17/2024 00:00:001 00:00:00P-Comprehensive Metabolic Panel (CMP)ALT (SGPT)3704-85-30F28:00:0011IU/L<5-47 - IU/LRevievarundNorfBettie christianson 06/21/2024 5:50:11 PM > See phone encounter Coding P-Comprehensive Metabolic Pa donavon (CMP) 06/17/2024 00:00:001 00:00:00P-Comprehensive Metabolic Panel (CMP) Alkaline Kxrbiqyieel8144-26-55R83:00:0072IU/L35-121 - IU/Bettie Holder 06/21/2024 5:50:11 PM > See phone encounter Coding P-Comprehensive Metabolic Pa donavon (CMP) 06/17/2024 00:00:001 00:00:00P-Comprehensive Metabolic Panel (CMP) Mbwmmko7998-19-38M65:00:004.3g/dL3.5-5.3 - g/dLBettie Nixon 06/21/2024 5:50:11 PM > See phone encounter Coding P-Comprehensive Metabolic Pa donavon (CMP) 06/17/2024 00:00:001 00:00:00P-Comprehensive Metabolic Panel (CMP)A/G Gooht9824-31-40R96:00:002.01.1-2.5 -ReviewedBettie Maya 06/21/2024 5:50:11 PM > See phone encounter Coding P-Comprehensive Metabolic Pa donavon (CMP) 06/17/2024 00:00: 00:00:81P-PUQSDD4607-55GUGZMV1101-40-31J41:00:003.74mU/L0.43- 5.25 - mU/LReviewedSyessica phone encounter Coding P-TSH 09/21/2024 00:00: 00:00:00P-Lipid PanelTriglycerides 4417-87-65K67:00:0082mg/dL<150 - mg/dLReviewedSee phone encounter Coding P-Lipid Panel 09/21/2024 00:00: 00:00:00P-Lipid PanelNon-HDL Cholesterol 1417-70-83L85:00:46600og/dL<130 - mg/dLHReviewedSee phone encounter Coding P-Lipid Panel 09/21/2024 00:00: 00:00:00P-Lipid PanelLDL/HDL Ratio 9087-67-57R54:00:002.5Ratio<3.3 - RatioReviewedSee phone encounter Coding P-Lipid Panel 09/21/2024 00:00: 00:00:00P-Lipid PanelLDL Cholesterol (Calculation) 9734-92-92Z84:00:63248mi/dL<130 - mg/dLHReviewedSee phone encounter Coding P-Lipid Panel 09/21/2024 00:00: 00:00:00P-Lipid PanelHDL Cholesterol 9944-81-54B02:00:0059mg/dL>39 - mg/dLReviewedSee phone encounter Coding P-Lipid Panel 09/21/2024 00:00: 00:00:00P-Lipid PanelCholesterol 8396-45-51C33:00:88044lx/dL<200 - mg/dLHReviewedSee phone encounter Coding P-Lipid Panel 09/21/2024 00:00: 00:00:00P-Lipid PanelCholesterol / HDL Ratio 0622-15-42Q45:00:003.91Fxosv2.00-4.44 - RatioReviewedSee phone encounter Coding P-Lipid Panel 09/21/2024 00:00: 00:00:00P-Basic Metabolic Panel (BMP)eGFR by Veqfkytoml1755-42-53N67:00:0067mL/min/1.73m2>59 - mL/min/1.77d7YxwcsotuHxp phone encounter Coding P-Basic Metabolic Panel (BMP ) 09/21/2024 00:00: 00:00:00P-Basic Metabolic Panel (BMP)Sodium 2576-31-82J78:00:44162huml/T372-870 - mmol/LReviewedSee phone encounter Coding P-Basic Metabolic Panel (BMP ) 09/21/2024 00:00: 00:00:00P-Basic Metabolic Panel (BMP)Potassium 3818-81-41B97:00:004.1mmol/L3.5-5.3 - mmol/LReviewedSee phone encounter Coding P-Basic Metabolic Panel (BMP ) 09/21/2024 00:00: 00:00:00P-Basic Metabolic Panel (BMP)Glucose 7819-38-71G99:00:0083mg/dL65-99 - mg/dLReviewedSee phone encounter Coding P-Basic Metabolic Panel (BMP ) 09/21/2024 00:00: 00:00:00P-Basic Metabolic Panel (BMP)Creatinine 0586-71-98K21:00:000.93mg/dL0.50-1.00 - mg/dLReviewedSee phone encounter Coding P-Basic Metabolic Panel (BMP ) 09/21/2024 00:00: 00:00:00P-Basic Metabolic Panel (BMP)CO2 8221-79-13G39:00:0021mmol/L22-32 - mmol/LLReviewedSee phone encounter Coding P-Basic Metabolic Panel (BMP ) 09/21/2024 00:00: 00:00:00P-Basic Metabolic Panel (BMP)Chloride 4200-94-64X30:00:02258tyge/L97-108 - mmol/LReviewedSee phone encounter Coding P-Basic Metabolic Panel (BMP ) 09/21/2024 00:00: 00:00:00P-Basic Metabolic Panel (BMP)Calcium 6931-01-12K94:00:009.1mg/dL8.6-10.4 - mg/dLReviewedSee phone encounter Coding P-Basic Metabolic Panel (BMP ) 09/21/2024 00:00: 00:00:00P-Basic Metabolic Panel (BMP)BUN 9022-98-42Q40:00:0021mg/dL8-23 - mg/dLReviewedSee phone encounter Coding P-Basic Metabolic Panel (BMP ) 09/21/2024 00:00:00
--- OUTSIDE RECORDS SUMMARY | 2025-02-22 09:22 | XMS_ITS | Referral Summary ---
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
== END 2025-02-22 23:59 | disposition home or self-care (01) ==
LOC: RAD 09:18
PROVIDERS: PCP Family Medicine; Visit Provider Family Medicine
DX: Z13.820 Encounter for screening for osteoporosis (principal)
CPT/HCPCS: 77080